=== PATIENT | male | born 1960 | race Caucasian/White ===

== ENCOUNTER 2021-03-10 07:07 | Outpatient (REF) | payer OTHER, SELFPAY ==
[2021-03-10 07:58] LABS: Alanine Aminotransferase 57 U/L (0-40); Alkaline Phosphatase 87 U/L (39-117); Anion Gap 12 (12-20); Aspartate Amino Transferase 41 U/L (5-37); Bilirubin Total 0.7 mg/dL (0.0-1.0); Blood Urea Nitrogen 13 mg/dL (9-16); Calcium 8.8 mg/dL (8.4-10.2); Carbon Dioxide 25 mmol/L (22-29); Chloride 106 mmol/L (96-108); Cholesterol 165 mg/dL; Estimated Glomerular Filt Rate 49; Glucose Fasting 129 mg/dL (60-99); HDL Cholesterol 39 mg/dL; LDL Cholesterol Calculated 106 mg/dl; Potassium 4.1 mmol/L (3.3-5.1); Sodium 139 mmol/L (135-145); Total Protein 6.9 g/dL (6.5-8.0); Triglycerides 102 mg/dL
[2021-03-15 13:32] LABS: Vitamin D 25-OH, D2 <4 ng/mL; Vitamin D 25-OH, D3 21 ng/mL; Vitamin D 25-OH, Total 21 ng/mL (30-100)
== END 2021-03-10 07:08 | disposition home or self-care (01) ==
LOC: HO.LAB 07:07
PROVIDERS: PCP Internal Medicine; Visit Provider Internal Medicine
DX: E55.9 Vitamin D deficiency, unspecified (principal); E78.5 Hyperlipidemia, unspecified; R73.02 Impaired glucose tolerance (oral)
CPT/HCPCS: 36415; 80053; 80061; 82306

== ENCOUNTER 2021-05-13 06:04 | Outpatient (REF) | payer OTHER, SELFPAY ==
[2021-05-13 07:57] LABS: Alanine Aminotransferase 55 U/L (0-40); Albumin Level 4.2 g/dL (3.5-5.0); Alkaline Phosphatase 93 U/L (39-117); Anion Gap 12 (12-20); Aspartate Amino Transferase 41 U/L (5-37); Bilirubin Total 1.1 mg/dL (0.0-1.0); Blood Urea Nitrogen 15 mg/dL (9-16); Calcium 9.1 mg/dL (8.4-10.2); Carbon Dioxide 24 mmol/L (22-29); Chloride 106 mmol/L (96-108); Estimated Glomerular Filt Rate 47; Glucose Fasting 107 mg/dL (60-99); Potassium 4.2 mmol/L (3.3-5.1); Sodium 138 mmol/L (135-145); Total Protein 7.2 g/dL (6.5-8.0)
[2021-05-18 13:02] LABS: Vitamin D 25-OH, D2 <4 ng/mL; Vitamin D 25-OH, D3 38 ng/mL; Vitamin D 25-OH, Total 38 ng/mL (30-100)
== END 2021-05-13 06:05 | disposition home or self-care (01) ==
LOC: HO.LAB 06:04
PROVIDERS: PCP Internal Medicine; Visit Provider Internal Medicine
DX: R73.02 Impaired glucose tolerance (oral) (principal); E55.9 Vitamin D deficiency, unspecified
CPT/HCPCS: 36415; 80053; 82306

== ENCOUNTER 2021-07-02 08:56 | Outpatient (REF) | payer OTHER, SELFPAY ==
[2021-07-02 10:04] LABS: MANUAL DIFF FLAG NO
[2021-07-02 10:20] LABS: Basophils Percent Auto 0.4 % (0-2); Eosinophils Absolute Auto 0.1 X10*3/uL (0.0-0.4); Hematocrit 41.1 % (42.0-52.0); Imm Gran Abs Auto 0.02 X10*3/uL (0.00-0.03); Imm Gran Pct Auto 0.2 % (0.0-0.4); Lymphocytes Absolute Auto 1.7 X10*3/uL (1.2-4.9); Lymphocytes Percent Auto 20.5 % (20-40); Mean Corpuscular HGB Conc 34.1 g/dl (31.0-36.0); Mean Corpuscular Hemoglobin 31.7 pg (27.0-33.0); Mean Platelet Volume 12.3 fL (9.4-12.4); Monocytes Absolute Auto 0.8 X10*3/uL (0.1-1.2); Monocytes Percent Auto 9.6 % (2-11); Neutrophils Absolute Auto 5.67 x10*3/uL (2.0-8.3); Neutrophils Percent Auto 68.3 % (45-73); Platelet Count 146 X10*3/uL (160-400); Red Blood Count 4.42 X10*6/uL (4.60-5.80); White Blood Count 8.3 X10*3/uL (4.8-10.8)
[2021-07-02 10:52] LABS: Bilirubin Direct 0.2 mg/dL (0.0-0.5); Bilirubin Total 0.5 mg/dL (0.0-1.0); Gamma Glutamyl Transpeptidase 30 U/L (11-51)
[2021-07-02 11:02] LABS: Ferritin 113 ng/mL (20-250); TSH reflex Free T4 1.64 uIU/mL (0.32-4.0)
[2021-07-02 11:16] LABS: Hepatitis B Surface Antigen Negative (Negative)
[2021-07-02 11:20] LABS: HBc Num1 0.05 S/CO (0.00-0.79); HIV AB/AG Nonreactive (Nonreactive); HIV Num 1 0.05 S/CO (0.00-0.99); Hepatitis B Core Antibody Nonreactive (Nonreactive); ~HepC Num1 0.06 S/CO (0.00-0.79); ~Hepatitis B Surface Antibody NONREACTIVE (Nonreactive); ~Hepatitis C Antibody Nonreactive (Nonreactive)
[2021-07-03 03:57] LABS: Hepatitis A Antibody IgM 0.25 Index (0-0.79); ~Hepatitis A Antibody IgM Nonreactive (Nonreactive)
[2021-07-03 14:27] LABS: Alpha Fetoprotein 4.2 ng/mL (<6.1)
[2021-07-04 12:51] LABS: Anti Nuclear Antibody Screen NEGATIVE (NEGATIVE)
[2021-07-07 14:37] LABS: Mitochondrial Antibodies NEGATIVE (NEGATIVE)
[2021-07-09 15:56] LABS: Smooth Muscle Antibody <20 U (<20)
== END 2021-07-02 08:57 | disposition home or self-care (01) ==
LOC: HO.LAB 08:56
PROVIDERS: PCP Internal Medicine; Referring Provider Internal Medicine; Visit Provider Nurse Practitioner
DX: R74.01 Elevation of levels of liver transaminase levels (principal); R17 Unspecified jaundice
CPT/HCPCS: 36415; 82105; 82247; 82248; 82728; 82977; 84443; 85025; 86038; 86039; 86255; 86256; 86704; 86706; 86709; 86803; 87340; 87389; 99202

== ENCOUNTER 2021-07-06 10:29 | Outpatient (REF) | payer OTHER, SELFPAY ==
--- NOTE | ~2021-07-06 | US_ITS ---
EXAMINATION: US ABDOMEN LIMITED WITH LIVER ELASTOGRAPHY CLINICAL INFORMATION: Elevated liver function tests COMPARISON: Renal ultrasound October 2019 TECHNIQUE: Real-time imaging of the abdominal viscera. Noninvasive ultrasound liver fibrosis assessment is performed using Rm ElastPQ point quantification shear wave elastography (pSWE) with a C5-2 MHz transducer. Multiple elastography samples are obtained. FINDINGS: PANCREAS: Not well visualized due to bowel gas LIVER: Liver is not well visualized, particularly the left lobe. Liver echotexture is slightly increased. The liver is normal in size and contour. No focal liver lesion or biliary duct dilatation. The right lobe measures 16 cm in length. The left lobe measures 8.5 cm in length. Portal flow is normal/hepatopedal Shear wave liver elastography median stiffness is 1.7 m/s (reference: normal median stiffness is 1.3 m/s or less). IQR/median stiffness to assess sampling precision is 0.13 (reference: good quality data set is IQR/median stiffness of 0.15 or less). GALLBLADDER: Normal. The gallbladder is physiologically distended without evidence of stones, sludge, polyps, wall thickening or pericholecystic fluid. COMMON BILE DUCT: Not well visualized. The visualized common bile duct is normal in caliber measuring 0.4 cm in diameter. RIGHT KIDNEY: Normal. No hydronephrosis. No renal calculi or focal parenchymal lesions. The kidney measures 10 cm in maximum dimension. FREE FLUID: None. US/US abdomen john w elastography IMPRESSION: 1. Impression: Limited exam. In particular, visualization of the pancreas, left lobe of the liver and common bile duct are limited. Echogenic liver probably representing fatty infiltration. 2. Liver elastography: Adequate liver sampling. Slightly increased liver stiffness suggestive of compensated advanced chronic liver disease but need further test for confirmation. REFERENCE: Society of Radiologists in Ultrasound Liver Stiffness Thresholds (2020): LIVER STIFFNESS THRESHOLDS: *Liver Stiffness equal or less than 1.3 m/s: High probability of being normal. *Liver Stiffness less than 1.7 m/s: In the absence of other known clinical signs, rules out compensated advanced chronic liver disease. *Liver Stiffness 1.7-2.1 m/s: Suggestive of compensated advanced chronic liver disease but need further test for confirmation. *Liver Stiffness over 2.1 m/s: Rules in compensated advanced chronic liver disease. *Liver Stiffness over 2.4 m/s: Suggestive of clinically significant portal hypertension. QUALITY OF DATA SET: *IQR/Median value equal or less than 0.15 implies a quality data set. *IQR/Median value over 0.15 implies a poor quality data set. SIGNIFICANT CHANGE FROM PRIOR EXAM: Significant change if liver stiffness measurement is 10% or greater from prior exam. OTHER CONSIDERATIONS: The stage of liver fibrosis may be overestimated in the setting of acute hepatitis, liver inflammation, elevated liver function tests, hepatic vascular congestion, obstructive cholestasis, non-fasting state, and infiltrative diseases such as amyloidosis and lymphoma. In some patients with NAFLD, the liver stiffness thresholds for compensated advanced chronic liver disease may be lower. In causes other than viral hepatitis and NAFLD, liver stiffness thresholds are not well established.
== END 2021-07-06 10:30 | disposition home or self-care (01) ==
LOC: HO.US 10:29
PROVIDERS: PCP Internal Medicine; Visit Provider Internal Medicine
DX: R74.01 Elevation of levels of liver transaminase levels (principal)
CPT/HCPCS: 76705; 76981

== ENCOUNTER → 2021-07-29 07:46 | Outpatient (BNVA) | payer OTHER, SELFPAY | PROVIDERS: PCP Internal Medicine; Visit Provider Nurse Practitioner Family | DX: M19.041 Primary osteoarthritis, right hand (principal); M19.042 Primary osteoarthritis, left hand | CPT/HCPCS: 99212 ==

== ENCOUNTER → 2021-11-06 07:36 | Outpatient (BNVA) | payer OTHER, SELFPAY | PROVIDERS: PCP Internal Medicine; Referring Provider Internal Medicine; Visit Provider Nurse Practitioner | DX: K74.60 Unspecified cirrhosis of liver (principal); R74.01 Elevation of levels of liver transaminase levels | CPT/HCPCS: 99212 ==

== ENCOUNTER → 2021-11-09 14:49 | Outpatient (REF) | payer OTHER, SELFPAY | LOC: HO.SL 14:49 | PROVIDERS: PCP Internal Medicine; Visit Provider Internal Medicine | DX: G47.33 Obstructive sleep apnea (adult) (pediatric) (principal); Z99.89 Dependence on other enabling machines and devices | CPT/HCPCS: 95806 ==

== ENCOUNTER 2021-11-25 08:40 | Outpatient (REF) | payer OTHER, SELFPAY ==
[2021-11-25 10:05] LABS: Alanine Aminotransferase 42 U/L (0-40); Albumin Level 4.1 g/dL (3.5-5.0); Alkaline Phosphatase 85 U/L (39-117); Anion Gap 12 (12-20); Aspartate Amino Transferase 28 U/L (5-37); Bilirubin Total 1.4 mg/dL (0.0-1.0); Blood Urea Nitrogen 13 mg/dL (9-16); Calcium 9.2 mg/dL (8.4-10.2); Carbon Dioxide 26 mmol/L (22-29); Chloride 104 mmol/L (96-108); Cholesterol 177 mg/dL; Estimated Glomerular Filt Rate 48; Glucose Fasting 101 mg/dL (60-99); HDL Cholesterol 39 mg/dL; LDL Cholesterol Calculated 119 mg/dl; Potassium 4.5 mmol/L (3.3-5.1); Sodium 137 mmol/L (135-145); Total Protein 7.2 g/dL (6.5-8.0); Triglycerides 96 mg/dL
[2021-11-25 10:43] LABS: Creatinine, 24Hr Urine 1.2 G/Day (1.0-2.0); Total Volume 24 Hour Urine 3025 mL
[2021-11-25 14:17] LABS: Creatinine (CrCl) 1.49 mg/dL (0.5-1.4); Creatinine Clearance 54.9 mL/min (85-125)
[2021-11-29 13:27] LABS: Vitamin D 25-OH, D2 <4 ng/mL; Vitamin D 25-OH, D3 49 ng/mL; Vitamin D 25-OH, Total 49 ng/mL (30-100)
== END 2021-11-25 08:41 | disposition home or self-care (01) ==
LOC: HO.LAB 08:40
PROVIDERS: Internal Medicine Hypertension Specialist; PCP Internal Medicine; Visit Provider Internal Medicine
DX: N18.31 Chronic kidney disease, stage 3a (principal); E55.9 Vitamin D deficiency, unspecified; E66.9 Obesity, unspecified
CPT/HCPCS: 36415; 80053; 80061; 82306; 82575

== ENCOUNTER 2021-12-01 08:48 | Outpatient (REF) | payer OTHER, SELFPAY ==
--- NOTE | ~2021-12-01 | CT_ITS ---
EXAMINATION: CT ABDOMEN WITHOUT AND WITH CONTRAST CLINICAL INFORMATION: Cirrhosis COMPARISON: Previous abdominal ultrasound June 2021 TECHNIQUE: Contiguous axial thin section helical images of the abdomen were performed before and after the administration of oral contrast and 85 mL of Omnipaque 350 intravenous contrast. The data set was reformatted in the coronal and sagittal planes and reviewed on an independent workstation. This CT examination was performed using dose optimization techniques as appropriate, variously including the following: *Automated exposure control *Adjustment of mA and/or kV according to patient size (this includes techniques or standardized protocols for targeted exams where dose is matched to indication/reason for exam; i.e. extremities or head) *Use of iterative reconstruction technique DLP: 995 mGy-cm FINDINGS: LUNG BASES: The lung bases are clear. LIVER, GALLBLADDER, AND BILIARY TREE: The liver is normal in size shape and attenuation. There is a 5 mm area of early arterial phase enhancement in the high medial segment of the left lobe of the liver axial image 31 series 4. This is not appreciated on noncontrast or venous phase imaging and no other liver lesion is seen. The gallbladder is normal. There is no biliary duct dilatation. No ascites. PANCREAS: Normal SPLEEN: Normal ADRENAL GLANDS AND KIDNEYS: The adrenal glands are normal-appearing. There are small bilateral renal stones, largest measuring 4 mm. There is an 8 mm low-attenuation lesion in the lower pole of the left kidney. Hounsfield units following contrast measure 30 not compatible with a simple cyst. This is not definitely appreciated on precontrast images. BOWEL LOOPS: Mild diverticulosis of the colon. LYMPH NODES: Normal. The hepatic veins and portal veins are patent. The main portal vein is normal in size measuring 1.2 to 1.3 cm. VASCULAR: Unremarkable. BONES: There are degenerative changes of the lower thoracic spine. CT/CT abdomen wo/w con IMPRESSION: 5 mm area of early arterial phase enhancement high in the medial segment of the left lobe of the liver. Short-term follow-up CT or MRI in 6 months recommended. 8 mm lesion in the lower pole of the left kidney not compatible with a simple cyst. This could be reassessed at the time of follow-up liver imaging. Bilateral renal stones. Mild diverticulosis. Fleischner guidelines were followed.
[2021-12-01] MEDS: iohexoL 350 MG/ML 100 ML INFUS..BTL IV (09:27)
== END 2021-12-01 08:49 | disposition home or self-care (01) ==
LOC: HO.CT 08:48
PROVIDERS: PCP Internal Medicine; Visit Provider Nurse Practitioner
DX: K74.60 Unspecified cirrhosis of liver (principal)
CPT/HCPCS: 74170; Q9967

== ENCOUNTER → 2021-12-22 12:50 | Outpatient (BNVA) | payer OTHER, SELFPAY | PROVIDERS: PCP Internal Medicine; Visit Provider Nurse Practitioner Family | DX: G47.33 Obstructive sleep apnea (adult) (pediatric) (principal); Z99.89 Dependence on other enabling machines and devices | CPT/HCPCS: 99202 ==

== ENCOUNTER 2022-02-02 07:54 | Outpatient (REF) | payer OTHER, SELFPAY ==
[2022-02-04 14:17] LABS: Anti Nuclear Antibody Screen NEGATIVE (NEGATIVE)
[2022-02-04 22:42] LABS: Prot Elec - Albumin 4.3 g/dL (3.8-4.8); Prot Elec - Alpha1 0.3 g/dL (0.2-0.3); Prot Elec - Alpha2 0.6 g/dL (0.5-0.9); Prot Elec - Beta 1 0.5 g/dL (0.4-0.6); Prot Elec - Beta 2 0.4 g/dL (0.2-0.5); Prot Elec - Gamma 1.4 g/dL (0.8-1.7); Prot Elec - Total Protein 7.4 g/dL (6.1-8.1)
[2022-02-05 15:22] LABS: Neutrophil Cyto Ab Screen NEGATIVE (NEGATIVE)
== END 2022-02-02 07:55 | disposition home or self-care (01) ==
LOC: HO.LAB 07:54
PROVIDERS: PCP Internal Medicine; Visit Provider Internal Medicine Hypertension Specialist
DX: N18.31 Chronic kidney disease, stage 3a (principal)
CPT/HCPCS: 36415; 84165; 86036; 86037; 86038; 86039

== ENCOUNTER 2022-02-08 16:55 | Outpatient (REF) | payer OTHER, SELFPAY ==
[2022-02-08 18:11] LABS: Anion Gap 11 (12-20); Blood Urea Nitrogen 15 mg/dL (9-16); Calcium 9.5 mg/dL (8.4-10.2); Carbon Dioxide 27 mmol/L (22-29); Chloride 104 mmol/L (96-108); Estimated Glomerular Filt Rate 48; Glucose Random 133 mg/dL (60-115); Potassium 4.2 mmol/L (3.3-5.1); Sodium 138 mmol/L (135-145)
== END 2022-02-08 16:56 | disposition home or self-care (01) ==
LOC: HO.LAB 16:55
PROVIDERS: PCP Internal Medicine; Visit Provider Internal Medicine Hypertension Specialist
DX: N18.31 Chronic kidney disease, stage 3a (principal)
CPT/HCPCS: 36415; 80048

== ENCOUNTER 2022-03-11 07:32 | Outpatient (REF) | payer OTHER, SELFPAY ==
[2022-03-17 13:55] LABS: Alpha Fetoprotein 4.3 ng/mL (<6.1)
== END 2022-03-11 07:33 | disposition home or self-care (01) ==
LOC: HO.LAB 07:32
PROVIDERS: Nurse Practitioner; PCP Internal Medicine; Visit Provider Internal Medicine
DX: K74.60 Unspecified cirrhosis of liver (principal)
CPT/HCPCS: 36415; 82105

== ENCOUNTER → 2022-03-12 19:58 | Outpatient (REF) | payer OTHER, SELFPAY | LOC: HO.SL 19:58 | PROVIDERS: PCP Internal Medicine; Visit Provider Nurse Practitioner Family | DX: G47.33 Obstructive sleep apnea (adult) (pediatric) (principal) | CPT/HCPCS: 95811 ==

== ENCOUNTER 2022-03-24 07:36 | Outpatient (REF) | payer OTHER, SELFPAY ==
[2022-03-24 09:26] LABS: Alanine Aminotransferase 44 U/L (0-40); Albumin Level 4.1 g/dL (3.5-5.0); Alkaline Phosphatase 86 U/L (39-117); Anion Gap 11 (12-20); Aspartate Amino Transferase 35 U/L (5-37); Bilirubin Total 0.8 mg/dL (0.0-1.0); Blood Urea Nitrogen 13 mg/dL (9-16); Calcium 8.3 mg/dL (8.4-10.2); Carbon Dioxide 28 mmol/L (22-29); Chloride 105 mmol/L (96-108); Estimated Glomerular Filt Rate 51; Glucose Fasting 105 mg/dL (60-99); Potassium 4.6 mmol/L (3.3-5.1); Sodium 139 mmol/L (135-145); Total Protein 7.1 g/dL (6.5-8.0)
[2022-03-24 09:50] LABS: Vitamin D 25-OH Total 49.3 ng/mL (>30)
== END 2022-03-24 07:37 | disposition home or self-care (01) ==
LOC: HO.LAB 07:36
PROVIDERS: PCP Internal Medicine; Visit Provider Internal Medicine
DX: R73.02 Impaired glucose tolerance (oral) (principal); E55.9 Vitamin D deficiency, unspecified
CPT/HCPCS: 36415; 80053; 82306

== ENCOUNTER 2022-09-07 07:27 | Outpatient (REF) | payer OTHER, SELFPAY ==
--- NOTE | ~2022-09-07 | MR_ITS ---
EXAMINATION: MRI ABDOMEN WITH AND WITHOUT CONTRAST CLINICAL INFORMATION: K76.9 - Liver disease, unspecified COMPARISON: 12/01/2021 TECHNIQUE: Multiple routine MRI sequences through the abdomen were obtained on a high-field 1.5Tesla MRI. Pre-and postcontrast images with 10 mL of Gadavist intravenous contrast were obtained. This included a dynamic contrast-enhanced technique. FINDINGS: Lung bases: The visualized lung bases are unremarkable. Liver: There is mild diffuse signal loss on the out of phase imaging suggesting mild diffuse fatty infiltration. In the anterolateral aspect of the liver near the junctions of segments 8 and 4 there is a tiny subcentimeter T2 bright likely flash filling hemangioma best appreciated on the arterial phase image and then difficult to separate from the adjacent enhancing parenchyma on the later phases. Still present on the delayed images with signal intensity similar to blood pool. No suspicious hepatic lesions are no biliary ductal dilatation. Gallbladder: Gallbladder is unremarkable. No suspicious gallstones or filling defects. No gallbladder wall thickening or pericholecystic inflammatory changes. Pancreas: Pancreas is homogeneous in signal. No pancreatic ductal dilatation or obstruction. No peripancreatic inflammatory changes or fluid. Spleen: Unremarkable Adrenals: Unremarkable Kidneys: Kidneys are normal in size, shape, and signal. 1 cm T2 bright nonenhancing cyst in the posterior midpole of the left kidney. No suspicious renal mass lesion seen. No hydronephrosis or perinephric edema. Other: No bulky adenopathy MR/MR abdomen wo/w con IMPRESSION: Mild diffuse fatty infiltration of the liver. There is a tiny subcentimeter T2 bright likely flash filling hemangioma in the anterolateral aspect of the liver near the junctions of segments 8 and 4. This corresponds to the subtle finding seen on the prior CT scan. No suspicious hepatic lesions.
[2022-09-07 08:39] LABS: Alanine Aminotransferase 33 U/L (0-40); Albumin Level 4.2 g/dL (3.5-5.0); Alkaline Phosphatase 95 U/L (39-117); Anion Gap 13 (12-20); Aspartate Amino Transferase 33 U/L (5-37); Blood Urea Nitrogen 14 mg/dL (9-16); Calcium 9.7 mg/dL (8.4-10.2); Carbon Dioxide 25 mmol/L (22-29); Chloride 107 mmol/L (96-108); Estimated Glomerular Filt Rate 57; Glucose Random 110 mg/dL (60-115); Potassium 4.9 mmol/L (3.3-5.1); Sodium 140 mmol/L (135-145); Total Protein 7.3 g/dL (6.5-8.0)
[2022-09-08 10:48] LABS: Calcium (PTHI) 9.5 mg/dL (8.6-10.3); PTHI 92 pg/mL (16-77)
[2022-09-10 08:53] LABS: Calcium, Ionized 5.1 mg/dL (4.8-5.6)
[2022-09-10 21:44] LABS: Calcium, Random Urine 3.8 mg/dL
== END 2022-09-07 07:28 | disposition home or self-care (01) ==
LOC: HO.MRI 07:27
PROVIDERS: PCP Internal Medicine; Visit Provider Internal Medicine
DX: E83.51 Hypocalcemia (principal); N28.9 Disorder of kidney and ureter, unspecified; K76.9 Liver disease, unspecified
CPT/HCPCS: 36415; 74183; 80053; 82310; 82330; 83970; A9585

== ENCOUNTER → 2022-09-09 08:14 | Outpatient (BNVA) | payer OTHER, SELFPAY | PROVIDERS: PCP Internal Medicine; Visit Provider Nurse Practitioner Family | DX: M19.041 Primary osteoarthritis, right hand (principal); M19.042 Primary osteoarthritis, left hand | CPT/HCPCS: 99212 ==

== ENCOUNTER 2022-10-13 07:59 | Outpatient (REF) | payer OTHER, SELFPAY ==
--- NOTE | ~2022-10-13 | US_ITS ---
EXAMINATION: US PELVIS LIMITED, ABDOMINAL WALL/FOLLOW UP CLINICAL INFORMATION: Left lower quadrant pain. COMPARISON: MRI abdomen 09/07/2022, CT abdomen 12/01/2021. TECHNIQUE: High-frequency linear ultrasound transducer was utilized to examine the area of clinical concern in the left lower quadrant. FINDINGS: No abnormality is seen in the left lower quadrant. No hernia, mass or fluid collection is seen. US/US pelvic limited IMPRESSION: No abnormality is seen in the left lower quadrant.
[2022-10-13 09:23] LABS: Alanine Aminotransferase 31 U/L (0-40); Albumin Level 4.1 g/dL (3.5-5.0); Alkaline Phosphatase 94 U/L (39-117); Anion Gap 15 (12-20); Aspartate Amino Transferase 32 U/L (5-37); Bilirubin Total 1.1 mg/dL (0.0-1.0); Blood Urea Nitrogen 10 mg/dL (9-16); Calcium 9.4 mg/dL (8.4-10.2); Carbon Dioxide 26 mmol/L (22-29); Chloride 106 mmol/L (96-108); Estimated Glomerular Filt Rate > 60; Glucose Random 110 mg/dL (60-115); Potassium 4.7 mmol/L (3.3-5.1); Sodium 142 mmol/L (135-145); Total Protein 6.9 g/dL (6.5-8.0)
[2022-10-13 09:37] LABS: Appearance Urine Clear; Color Urine Yellow; Glucose Urine UA Negative (Negative); Leukocyte Esterase Urine Negative (Negative); Nitrite Urine Negative (Negative); PH 5.5 (5.0-9.0); Urine Blood Negative (Negative); Urine Ketones Negative (Negative); Urine Protein Negative (Neg-Trace)
[2022-10-13 09:40] LABS: Bacteria Urine None Seen (None Seen); Hyaline Casts Urine 0-2 /LPF (0-2); RBC Urine 0-2 /HPF (0-2); Squamous Epithelial Cell Urine 0-2 /HPF (0-2); WBC Urine 0-5 /HPF (0-5)
[2022-10-13 09:41] LABS: Vitamin D 25-OH Total 42.8 ng/mL (>30)
[2022-10-13 10:08] LABS: Creatinine Urine 175.56 mg/dL; Total Protein Urine Random < 7 mg/dL (<12)
[2022-10-14 14:59] LABS: Calcium (PTHI) 9.3 mg/dL (8.6-10.3); PTHI 81 pg/mL (16-77)
[2022-10-17 14:53] LABS: Anti Nuclear Antibody Screen NEGATIVE (NEGATIVE)
[2022-10-19 11:49] LABS: Neutrophil Cyto Ab Screen NEGATIVE (NEGATIVE)
== END 2022-10-13 08:00 | disposition home or self-care (01) ==
LOC: HO.US 07:59
PROVIDERS: Absent Provider Internal Medicine Hypertension Specialist; PCP Internal Medicine; Visit Provider Internal Medicine
DX: N18.31 Chronic kidney disease, stage 3a (principal); R10.32 Left lower quadrant pain
CPT/HCPCS: 36415; 76857; 80053; 81001; 82306; 83970; 84156; 86036; 86037; 86038; 86039

== ENCOUNTER → 2022-11-23 14:49 | Outpatient (BNVA) | payer OTHER, SELFPAY | PROVIDERS: PCP Internal Medicine; Visit Provider Urology | DX: N20.0 Calculus of kidney (principal) | CPT/HCPCS: 99202 ==

== ENCOUNTER → 2022-12-08 15:23 | Outpatient (BNVA) | payer OTHER, SELFPAY | PROVIDERS: PCP Internal Medicine; Visit Provider Nurse Practitioner Family | DX: G47.33 Obstructive sleep apnea (adult) (pediatric) (principal); Z99.89 Dependence on other enabling machines and devices | CPT/HCPCS: 99212 ==

== ENCOUNTER 2022-12-28 11:25 | Outpatient (REF) | payer OTHER, SELFPAY ==
[2022-12-28 12:50] LABS: Alanine Aminotransferase 29 U/L (0-40); Albumin Level 4.1 g/dL (3.5-5.0); Alkaline Phosphatase 90 U/L (39-117); Anion Gap 13 (12-20); Aspartate Amino Transferase 30 U/L (5-37); Bilirubin Total 1.2 mg/dL (0.0-1.0); Blood Urea Nitrogen 15 mg/dL (9-16); Calcium 9.4 mg/dL (8.4-10.2); Carbon Dioxide 26 mmol/L (22-29); Chloride 104 mmol/L (96-108); Estimated Glomerular Filt Rate > 60; Glucose Random 87 mg/dL (60-115); Potassium 4.5 mmol/L (3.3-5.1); Sodium 138 mmol/L (135-145)
[2022-12-28 13:05] LABS: Vitamin D 25-OH Total 37.5 ng/mL (>30)
[2022-12-29 16:13] LABS: Calcium (PTHI) 9.4 mg/dL (8.6-10.3); PTHI 53 pg/mL (16-77)
== END 2022-12-28 11:26 | disposition home or self-care (01) ==
LOC: HO.LAB 11:25
PROVIDERS: PCP Internal Medicine; Visit Provider Urology
DX: E55.9 Vitamin D deficiency, unspecified (principal); N18.31 Chronic kidney disease, stage 3a
CPT/HCPCS: 36415; 80053; 82306; 83970

== ENCOUNTER → 2023-01-04 15:46 | Outpatient (BNVA) | payer OTHER, SELFPAY | PROVIDERS: PCP Internal Medicine; Visit Provider Urology | DX: N20.0 Calculus of kidney (principal); E21.3 Hyperparathyroidism, unspecified | CPT/HCPCS: 99212 ==

== ENCOUNTER 2023-03-30 07:34 | Outpatient (AMB) | payer OTHER, SELFPAY ==
--- NOTE | 2023-03-30 07:49 | MHC.PC.OV ---
Vital Signs 03/30/23 07:50 Height 5 ft 10 in Weight 233 lb BMI 33.4 BP 136/88 Blood Pressure Location Lt brachial Position Sitting Intake Visit Reasons: Physical Exam Intake Note: Patient here for a physical exam Dewer Required: No Accompanied by: Spouse Allergies No Known Allergies [No Known Allergies*] Allergy (Verified 03/30/23 08:13) Medication List - Last Reconciled 03/30/23 by Sahara Arnett MD No Known Home Meds Tobacco use date assessed: 12/28/22 Fall risk assessment: No Falls in past year Last assessed Fall Risk: 03/30/23 Dental Screening Dental Screen Date: 03/30/23 Did you have a dental visit in the last 12 months?: Yes Did you have a dental problem in the last 6 months where you did not have access to dental care?: No Was dental information given to patient?: Patient has dentist HPI HPI Comments History of Present Illness Details This is a 62-year-old male that comes accompanied by for his physical exam. Last colonoscopy was 2015 and was normal. Denies any acute complaint. No chest pain or shortness of breath. Had chronic kidney disease that improved and now has GFR over 60. [facility] Medical History (Updated 03/30/23 @ 09:00 by Sahara Arnett MD) Anxiety associated with depression CKD (chronic kidney disease) LOR (generalized anxiety disorder) Hyperparathyroidism Hypovitaminosis D Impaired glucose tolerance Knee osteoarthritis Mild major depression Obese ANA on CPAP Total bilirubin, elevated Transaminitis Surgical History Hx of colonoscopy Family History (Updated 03/30/23 @ 08:14 by Sahara Arnett MD) Father Cancer Stroke Cirrhosis Mother Diabetes Social History Housing: House Alcohol intake: never Patient Tobacco Use Status: Never used Tobacco e-Cigarette/Vaping Use: Never Used Second Hand Smoke Exposure: No service: No Current occupational status: disabled Cognitive needs: No Hearing needs: No Vision needs: Yes Questionnaire Thrive Questionnaire Date Thrive assessed: 09/22/22 LOR-7 AMB Questionnaire LOR-7 Date LOR - 7 assessed: 09/22/22 Source: Developed by Drs. Desean L. Masha Chang, Nato Moncada and colleagues, with an educational lalitha from [employer]. Review of Systems Const All systems reviewed & are unremarkable except as noted in HPI and below Eyes Reports no additional complaints, Denies change in vision and Denies other visual disturbances Card Denies chest pain at rest, Denies chest pain with activity, Denies edema, Denies irregular heart rhythm, Denies claudication, Denies dyspnea, Denies dyspnea on exertion, Denies orthopnea, Denies paroxysmal nocturnal dyspnea and Denies slow heart rate Resp Denies cough, Denies dyspnea and Denies dyspnea on exertion GI Denies abdominal pain, Denies change in bowel habits, Denies excessive flatus, Denies nausea and Denies vomiting Denies urinary hesitancy, Denies urinary incontinence and Denies urinary urgency Musc Denies abnormal gait, Denies atrophy, Denies deformity and Denies limited range of motion Skin/Breast Denies bleeding lesions, Denies changing lesions and Denies rash Neuro Denies abnormal gait and Denies lack of coordination Physical exam (Primary Care) Vital Signs: Last Vital Signs BP 136/88 03/30/23 07:50 BMI result Body Mass Index 33.4 Tobacco/Smoking Status: Tobacco use Status Tobacco use date assessed 12/28/22 03/30/23 07:54 Patient Tobacco Use Status Never used Tobacco 03/30/23 07:54 e-Cigarette/Vaping Use Never Used 03/30/23 07:54 Thrive Assessment: Date of Thrive Assessment Date Thrive assessed 09/22/22 03/30/23 07:54 Const Orientation/consciousness: patient oriented x3 [facility] Head: Yes normal to inspection, Yes normocephalic and Yes atraumatic Ears: external ears normal Eyes General: appearance normal, both eyes and all related structures Eyelids: Yes eyelids normal Conjunctivae: conjunctivae normal Neck Neck: Yes normal visual inspection and Yes supple Resp Effort & Inspection: normal respiratory effort Auscultation: clear to auscultation bilaterally Cardio Jugular venous distension: no JVD Rate: regular rate Rhythm: regular rhythm Heart sounds: S1 normal heart sound present and S2 normal heart sound present GI Inspection: Yes normal to inspection Palpation (GI): Soft to palpation and nontender Auscultation: normal bowel sounds Skin General skin exam: no rashes or lesions noted Neuro General: patient oriented x3 and no focal motor deficits Extrem General: Yes full ROM Psych Appearance: grossly normal Assessment and Plan Assessment & Plan (1) Physical exam: Code(s): Z00.00 - Encounter for general adult medical examination without abnormal findings Plan: Repeat in a year Orders: Orders Comprehensive [place]. Panel Fast Today Z00.00 - Encounter for general adult medical examination without abnormal findings Lipid Panel Today Z00.00 - Encounter for general adult medical examination without abnormal findings Coding Level of Care Code Est Pt Prev Care 40-64y(02766) Diagnoses Physical exam Z00.00 Time Spent (min) 30
[2023-03-30 07:50] VITALS: BP 136/88; BMI 33.4
== END 2023-03-30 08:24 | disposition home or self-care (01) ==
PROVIDERS: Visit Provider Internal Medicine
DX: Z00.00 Encounter for general adult medical examination without abnormal findings (principal)
CPT/HCPCS: 99396

== ENCOUNTER 2023-05-11 08:04 | Outpatient (REF) | payer OTHER, SELFPAY ==
[2023-05-11 08:39] LABS: Calcium 9.3 mg/dL (8.4-10.2)
[2023-05-11 08:51] LABS: Alanine Aminotransferase 35 U/L (0-40); Alkaline Phosphatase 93 U/L (39-117); Anion Gap 11 (12-20); Aspartate Amino Transferase 34 U/L (5-37); Blood Urea Nitrogen 10 mg/dL (9-16); Calcium 9.4 mg/dL (8.4-10.2); Carbon Dioxide 27 mmol/L (22-29); Chloride 108 mmol/L (96-108); Cholesterol 175 mg/dL (<200); Estimated Glomerular Filt Rate > 60; Glucose Fasting 111 mg/dL (60-99); HDL Cholesterol 38 mg/dL (>40); LDL Cholesterol Calculated 112 mg/dL (<100); Phosphorus 2.7 mg/dL (2.7-4.5); Potassium 4.5 mmol/L (3.3-5.1); Sodium 141 mmol/L (135-145); Total Protein 7.2 g/dL (6.5-8.0); Triglycerides 129 mg/dL (<150); Uric Acid 8.3 mg/dL (3.4-7.0)
[2023-05-11 09:05] LABS: Vitamin D 25-OH Total 33.3 ng/mL (>30)
[2023-05-11 10:06] LABS: Creatinine Urine 138.19 mg/dL; Total Protein Urine Random < 7 mg/dL (<12)
[2023-05-13 23:58] LABS: PTHI 68 pg/mL (16-77)
== END 2023-05-11 08:05 | disposition home or self-care (01) ==
LOC: HO.LAB 08:04
PROVIDERS: Urology; PCP Internal Medicine; Visit Provider Internal Medicine Hypertension Specialist
DX: Z00.00 Encounter for general adult medical examination without abnormal findings (principal); N20.0 Calculus of kidney; N17.9 Acute kidney failure, unspecified
CPT/HCPCS: 36415; 80053; 80061; 82306; 82310; 82570; 83735; 83970; 84100; 84156; 84550

== ENCOUNTER 2023-09-08 07:54 | Outpatient (AMB) | payer OTHER, SELFPAY ==
[2023-09-08 08:08] VITALS: BP 130/78; BMI 33.1
--- NOTE | 2023-09-08 08:08 | MHC.PC.OV ---
Vital Signs 09/08/23 08:08 Height 5 ft 10 in Weight 231 lb BMI 33.1 BP 130/78 Blood Pressure Location Lt brachial Position Sitting Intake Visit Reasons: ckd Intake Note: Patient here for a follow up CKD Sales Operations Consultant Required: No Accompanied by: Spouse Allergies No Known Allergies [No Known Allergies*] Allergy (Verified 09/08/23 08:33) Medication List - Last Reconciled 09/08/23 by Sahara Arnett MD celecoxib mg PO Tobacco use date assessed: 09/08/23 Fall risk assessment: No Falls in past year Last assessed Fall Risk: 09/08/23 Dental Screening Dental Screen Date: 09/08/23 Did you have a dental visit in the last 12 months?: Yes Did you have a dental problem in the last 6 months where you did not have access to dental care?: No Was dental information given to patient?: Patient has dentist HPI HPI Comments History of Present Illness Details This is a 62-year-old male with knee osteoarthritis, impaired glucose tolerance, obstructive sleep apnea on CPAP and obesity that comes today accompanied by for follow-up on his conditions. Knee osteoarthritis is relieved by Celebrex as needed and he follows with orthopedic surgeon Dr. Jaime at [place] for this matter. MRI of the knee still pending. Walks with a cane for gait stability. Has elevated fasting blood glucose but denies any polyuria, polydipsia or unintentional weight loss. Blood glucose will be repeated in 8 months for his physical exam. Compliant with his CPAP machine for his obstructive sleep apnea and feels more rested while using it. He is obese with a BMI of 33.1 and was advised to diet and exercise as tolerated to reach BMI goal less than 30. No chest pain or shortness of breath. Had a history of chronic kidney disease which resolved. [facility] Medical History (Updated 09/08/23 @ 09:18 by Sahara Arnett MD) Hyperparathyroidism Total bilirubin, elevated LOR (generalized anxiety disorder) CKD (chronic kidney disease) Transaminitis Obese Anxiety associated with depression Mild major depression Impaired glucose tolerance ANA on CPAP Knee osteoarthritis Hypovitaminosis D Surgical History Hx of colonoscopy Family History Father Cancer Stroke Cirrhosis Mother Diabetes Social History Housing: House Alcohol intake: never Patient Tobacco Use Status: Never used Tobacco e-Cigarette/Vaping Use: Never Used Second Hand Smoke Exposure: No service: No Current occupational status: disabled Cognitive needs: Yes Hearing needs: No Vision needs: Yes Questionnaire PHQ-9 Over the last 2 weeks, how often have you been bothered by any of the following problems? 1. Little interest or pleasure in doing things: not at all 2. Feeling down, depressed, or hopeless: not at all 3. Trouble falling or staying asleep, or sleeping too much: not at all 4. Feeling tired or having little energy: not at all 5. Poor appetite or overeating: not at all 6. Feeling bad about yourself - or that you are a failure or have let yourself or your family down: not at all 7. Trouble concentrating on things, such as reading the newspaper or watching television: not at all 8. Moving or speaking so slowly that other people could have noticed. Or the opposite - being so fidgety or restless that you have been moving around a lot more than usual: not at all 9. Thoughts that you would be better off or of hurting yourself in some way: not at all Total score: 0 Depression Screening Interpretation: Negative Depression Screening Done: Yes 38595 - PHQ-9 Billing: Yes Source: Developed by Drs. Desean Chang, Masha Drew, Nato Moncada and colleagues, with an educational lalitha from [employer]. Thrive Questionnaire Date Thrive assessed: 09/08/23 I am a: Patient What is your living situation today?: I have a steady place to live Within the past 12 months, did the food you bought not last and you didn't have the money to get more?: Never true Within the past 12 months, did you worry whether your food would run out before you got money to buy more?: Never true Do you have trouble paying for medicines?: No Do you have trouble getting transportation to medical appointments?: No Do you have trouble paying your heating and electricity bill?: No Do you have trouble taking care of your child, family member or friend?: No Do you have trouble with day-to-day activities such as bathing, preparing meals, shopping, managing finances, etc.?: No Are you currently unemployed and looking for a job?: No Are you interested in more education?: No Please select the resources that you would like help with: None Currently or been in a relationship where the following occur: no concerns reported AUDIT C Alcohol Use Questionnaire (AUDIT-C) 1. How often do you have a drink containing alcohol?: Never Total Score: 0 LOR-7 AMB Questionnaire LOR-7 Date LOR - 7 assessed: 09/08/23 Feeling nervous, anxious, or on edge: 0 = Not at all Not being able to stop or control worryin = Not at all Worrying too much about different things: 0 = Not at all Trouble relaxin = Not at all Being so restless that it is hard to sit still: 0 = Not at all Becoming easily annoyed or irritable: 0 = Not at all Feeling afraid as if something awful might happen: 0 = Not at all Total LOR-7 score (0-4 normal; 5-9 mild; 10-14 moderate; 15-21 severe): 0 Source: Developed by Drs. Desean Chang, Masha Drew, Nato Moncada and colleagues, with an educational lalitha from [employer]. LOR-7 Assessment Billing LOR-7 Assessment Tool: LOR-7 Assessment 08636 Review of Systems Const All systems reviewed & are unremarkable except as noted in HPI and below Eyes Reports no additional complaints, Denies change in vision and Denies other visual disturbances Card Denies chest pain at rest, Denies chest pain with activity, Denies edema, Denies irregular heart rhythm, Denies claudication, Denies dyspnea, Denies dyspnea on exertion, Denies orthopnea, Denies paroxysmal nocturnal dyspnea and Denies slow heart rate Resp Denies cough, Denies dyspnea and Denies dyspnea on exertion GI Denies abdominal pain, Denies change in bowel habits, Denies excessive flatus, Denies nausea and Denies vomiting Denies urinary hesitancy, Denies urinary incontinence and Denies urinary urgency Musc Denies abnormal gait, Denies atrophy, Denies deformity, Reports arthralgias and Denies limited range of motion Skin/Breast Denies bleeding lesions, Denies changing lesions and Denies rash Neuro Denies abnormal gait, Denies behavioral changes and Denies lack of coordination Psych Denies behavioral changes Physical exam (Primary Care) Vital Signs: Last Vital Signs BP 130/78 09/08/23 08:08 BMI result Body Mass Index 33.1 Tobacco/Smoking Status: Tobacco use Status Tobacco use date assessed 09/08/23 09/08/23 08:11 Patient Tobacco Use Status Never used Tobacco 09/08/23 08:11 e-Cigarette/Vaping Use Never Used 09/08/23 08:11 PHQ-9: PHQ-9 Score PHQ-9: Total score 0 09/08/23 08:36 Depression Screening Interpretation: Negative Thrive Assessment: Date of Thrive Assessment Date Thrive assessed 09/08/23 09/08/23 08:11 Currently or been in a relationship where the following occur: no concerns reported Const Limitations: ambulation with cane Eyes General: appearance normal, both eyes and all related structures Eyelids: Yes eyelids normal Conjunctivae: conjunctivae normal Neck Neck: Yes normal visual inspection and Yes supple Resp Effort & Inspection: normal respiratory effort Auscultation: clear to auscultation bilaterally Cardio Jugular venous distension: no JVD Rate: regular rate Rhythm: regular rhythm Heart sounds: S1 normal heart sound present and S2 normal heart sound present Extrem General: Yes full ROM Office Procedures Flu Questionnaire Does the patient have a severe egg allergy?: No Immunizations flu vacc [id number] 6mos up(PF) 60 mcg(15 mcgx4)/0.5 mL IM syringe Performing Provider: Sahara Arnett MD Performing Location: [facility] Documented (not given) by: KIRSTIN Givens on 09/08/23 08:11 Reason Not Given: Patient Refused Assessment and Plan Assessment & Plan (1) Impaired glucose tolerance: Code(s): R73.02 - Impaired glucose tolerance (oral) Plan: Start a low-carbohydrate diet. Fasting blood glucose will be repeated for his physical exam. (2) Knee osteoarthritis: Code(s): M17.10 - Unilateral primary osteoarthritis, unspecified knee Qualifiers: Osteoarthritis type: primary Laterality: right Qualified Code(s): M17.11 - Unilateral primary osteoarthritis, right knee Plan: Continue Celebrex as needed. Follow-up with Ortho. (3) ANA on CPAP: Code(s): G47.33 - Obstructive sleep apnea (adult) (pediatric); Z99.89 - Dependence on other enabling machines and devices Plan: Continue CPAP use. (4) Class 1 obesity with body mass index (BMI) of 33.0 to 33.9 in adult: Code(s): E66.9 - Obesity, unspecified; Z68.33 - Body mass index [BMI] 33.0-33.9, adult Qualifiers: Obesity type: due to excess calories Serious obesity comorbidity presence: without serious comorbidity Qualified Code(s): E66.09 - Other obesity due to excess calories; Z68.33 - Body mass index [BMI] 33.0-33.9, adult Plan: Start diet and exercise. BMI goal is less than 30. Orders: Orders Influenza [id number] Immunization Today Z23 - Encounter for immunization Lipid Panel 7 Months R73.02 - Impaired glucose tolerance (oral) Comprehensive [place]. Panel Fast 7 Months R73.02 - Impaired glucose tolerance (oral) Coding Level of Care Code Est Pt Level 4 (77211) Diagnoses Impaired glucose tolerance R73.02 Primary osteoarthritis of right knee M17.11 Osteoarthritis type: primary Laterality: right ANA on CPAP G47.33; Z99.89 Class 1 obesity due to excess calories without serious comorbidity with body mass index (BMI) of 33.0 to 33.9 in adult E66.09; Z68.33 Obesity type: due to excess calories Serious obesity comorbidity presence: without serious comorbidity Additional Codes LOR-7 Assessment Billing - LOR-7 Assessment Tool: LOR-7 Assessment 37697 ([id number]) Time Spent (min) 22
== END 2023-09-08 08:39 | disposition home or self-care (01) ==
PROVIDERS: PCP Internal Medicine; Visit Provider Internal Medicine
DX: R73.02 Impaired glucose tolerance (oral) (principal); M17.11 Unilateral primary osteoarthritis, right knee; E66.09 Other obesity due to excess calories; Z68.33 Body mass index [BMI] 33.0-33.9, adult; G47.33 Obstructive sleep apnea (adult) (pediatric); Z99.89 Dependence on other enabling machines and devices
CPT/HCPCS: 99214

== ENCOUNTER 2023-12-12 08:31 | Outpatient (AMB) | payer OTHER, SELFPAY ==
[2023-12-12 08:33] VITALS: BP 142/86; BMI 34.0
--- NOTE | 2023-12-12 08:33 | MHC.PC.OV ---
Vital Signs 12/12/23 08:33 12/12/23 08:41 Height 5 ft 10 in Weight 237 lb BMI 34.0 BP 142/86 H 138/80 Blood Pressure Location Lt brachial Lt brachial Position Sitting Sitting Intake Visit Reasons: Knee operation 12/14 Intake Note: Patient here for pre-op clearance 12/14 Oil Painter Required: No Accompanied by: Self / Same As Patient Allergies No Known Allergies [No Known Allergies*] Allergy (Verified 12/12/23 08:40) Medication List - Last Reconciled 12/12/23 by Sahara Arnett MD celecoxib mg PO Tobacco use date assessed: 09/08/23 Fall risk assessment: No Falls in past year Last assessed Fall Risk: 12/12/23 Dental Screening Dental Screen Date: 09/08/23 HPI HPI Comments History of Present Illness Details This is a 63-year-old male with knee osteoarthritis, obstructive sleep apnea on CPAP and low vitamin-D that comes today for preop evaluation of right knee arthroscopy scheduled for 12/15/2023. He walks with a cane for gait stability and has been complaining of knee pain secondary to knee osteoarthritis for few months. The pain decreased when knee is extended but not fully extended. Patient has limited right knee flexion also. Celebrex is not working for his pain. Compliant with CPAP machine and feels more rested. Last vitamin-D levels were within normal limits and this will eventually be monitor. Denies any chest pain or shortness of breath. Has 5-7 Mets of ADLs. EKG and labs are pending for medical clearance which will be done today. [facility], [facility] Medical History Hyperparathyroidism Total bilirubin, elevated LOR (generalized anxiety disorder) CKD (chronic kidney disease) Transaminitis Obese Anxiety associated with depression Mild major depression Impaired glucose tolerance ANA on CPAP Knee osteoarthritis Hypovitaminosis D Surgical History Hx of colonoscopy Family History Father Cancer Stroke Cirrhosis Mother Diabetes Social History Housing: House Alcohol intake: never Patient Tobacco Use Status: Never used Tobacco e-Cigarette/Vaping Use: Never Used Second Hand Smoke Exposure: No service: No Current occupational status: disabled Cognitive needs: Yes Hearing needs: No Vision needs: Yes Questionnaire Thrive Questionnaire Date Thrive assessed: 09/08/23 LOR-7 AMB Questionnaire LOR-7 Date LOR - 7 assessed: 09/08/23 Source: Developed by Drs. Desean Chang, Masha Drew, Nato Moncada and colleagues, with an educational lalitha from [employer]. Review of Systems Const All systems reviewed & are unremarkable except as noted in HPI and below Eyes Reports no additional complaints, Denies change in vision and Denies other visual disturbances Card Denies chest pain at rest, Denies chest pain with activity, Denies edema, Denies irregular heart rhythm, Denies claudication, Denies dyspnea, Denies dyspnea on exertion, Denies orthopnea, Denies paroxysmal nocturnal dyspnea and Denies slow heart rate Resp Denies cough, Denies dyspnea and Denies dyspnea on exertion Physical exam (Primary Care) Vital Signs: Last Vital Signs BP 142/86 H 12/12/23 08:33 BMI result Body Mass Index 34.0 Tobacco/Smoking Status: Tobacco use Status Tobacco use date assessed 09/08/23 12/12/23 08:36 Patient Tobacco Use Status Never used Tobacco 12/12/23 08:36 e-Cigarette/Vaping Use Never Used 12/12/23 08:36 Thrive Assessment: Date of Thrive Assessment Date Thrive assessed 09/08/23 12/12/23 08:36 Const General: cooperative Orientation/consciousness: patient oriented x3 Limitations: ambulation with cane Resp Effort & Inspection: normal respiratory effort Auscultation: clear to auscultation bilaterally Cardio Jugular venous distension: no JVD Rate: regular rate Rhythm: regular rhythm Heart sounds: S1 normal heart sound present and S2 normal heart sound present GI Inspection: Yes normal to inspection Palpation (GI): Soft to palpation and nontender Auscultation: normal bowel sounds Neuro General: patient oriented x3 and no focal motor deficits Extrem Right lower extremity: knee Details: tenderness and abnormal ROM Details: pain with active ROM during Details: in extension and in flexion Psych Appearance: grossly normal Assessment and Plan Assessment & Plan (1) Pre-op evaluation: Code(s): Z01.818 - Encounter for other preprocedural examination Plan: EKG and labs pending for medical clearance. (2) ANA on CPAP: Code(s): G47.33 - Obstructive sleep apnea (adult) (pediatric); Z99.89 - Dependence on other enabling machines and devices Plan: Continue CPAP machine. (3) Knee osteoarthritis: Code(s): M17.10 - Unilateral primary osteoarthritis, unspecified knee Qualifiers: Osteoarthritis type: primary Laterality: right Qualified Code(s): M17.11 - Unilateral primary osteoarthritis, right knee Plan: Continue the use of a cane for gait stability. Follow-up with [facility] Dr. Lyndon Villalpando from [facility]. (4) Hypovitaminosis D: Code(s): E55.9 - Vitamin D deficiency, unspecified Plan: Monitor vitamin-D levels. Orders: Orders Complete Blood Count Auto Diff Today M19.041 - Primary osteoarthritis, right hand, M19.042 - Primary osteoarthritis, left hand Comprehensive [place]. Panel Fast Today M19.041 - Primary osteoarthritis, right hand, M19.042 - Primary osteoarthritis, left hand Lipid Panel Today E78.5 - Hyperlipidemia, unspecified ECG 12 lead EKG Today Z01.818 - Encounter for other preprocedural examination Coding Level of Care Code Est Pt Level 4 (04768) Diagnoses Pre-op evaluation Z01.818 ANA on CPAP G47.33; Z99.89 Primary osteoarthritis of right knee M17.11 Osteoarthritis type: primary Laterality: right Hypovitaminosis D E55.9 Time Spent (min) 23
[2023-12-12 08:41] VITALS: BP 138/80
== END 2023-12-12 08:45 | disposition home or self-care (01) ==
PROVIDERS: PCP Internal Medicine; Visit Provider Internal Medicine
DX: Z01.818 Encounter for other preprocedural examination (principal); G47.33 Obstructive sleep apnea (adult) (pediatric); Z99.89 Dependence on other enabling machines and devices; M17.11 Unilateral primary osteoarthritis, right knee; E55.9 Vitamin D deficiency, unspecified
CPT/HCPCS: 99214

== ENCOUNTER 2023-12-13 07:59 | Outpatient (REF) | payer OTHER, SELFPAY ==
[2023-12-13 08:22] LABS: MANUAL DIFF FLAG NO
--- NOTE | 2023-12-13 08:25 | ECG_ITS ---
Test Reason : preop Blood Pressure : / mmHG Vent. Rate : 072 BPM Atrial Rate : 072 BPM P-R Int : 180 ms QRS Dur : 100 ms QT Int : 392 ms P-R-T Axes : 046 076 031 degrees QTc Int : 429 ms Normal sinus rhythm Normal ECG No previous ECGs available Referred By: Sahara Arnett Electronically Signed By:STORMY GILLESPIE
[2023-12-13 09:08] LABS: Basophils Percent Auto 0.5 % (0-2); Eosinophils Absolute Auto 0.3 X10*3/uL (0.0-0.4); Eosinophils Percent Auto 3.5 % (0-4); Hematocrit 41.7 % (42.0-52.0); Imm Gran Abs Auto 0.02 X10*3/uL (0.00-0.03); Imm Gran Pct Auto 0.3 % (0.0-0.4); Lymphocytes Absolute Auto 1.8 X10*3/uL (1.2-4.9); Lymphocytes Percent Auto 23.2 % (20-40); Mean Corpuscular HGB Conc 33.6 g/dl (31.0-36.0); Mean Corpuscular Hemoglobin 31.6 pg (27.0-33.0); Mean Corpuscular Volume 94.1 fL (80.0-98.0); Mean Platelet Volume 12.5 fL (9.4-12.4); Monocytes Absolute Auto 0.8 X10*3/uL (0.1-1.2); Monocytes Percent Auto 10.9 % (2-11); Neutrophils Absolute Auto 4.8 x10*3/uL (2.0-8.3); Neutrophils Percent Auto 61.6 % (45-73); Platelet Count 130 X10*3/uL (160-400); Red Blood Count 4.43 X10*6/uL (4.60-5.80); White Blood Count 7.7 X10*3/uL (4.8-10.8)
[2023-12-13 10:05] LABS: Alanine Aminotransferase 39 U/L (0-40); Albumin Level 4.2 g/dL (3.5-5.0); Alkaline Phosphatase 99 U/L (39-117); Anion Gap 12 (12-20); Aspartate Amino Transferase 29 U/L (5-37); Bilirubin Total 0.9 mg/dL (0.0-1.0); Blood Urea Nitrogen 14 mg/dL (9-16); Calcium 9.5 mg/dL (8.4-10.2); Carbon Dioxide 26 mmol/L (22-29); Chloride 106 mmol/L (96-108); Cholesterol 171 mg/dL (<200); Estimated Glomerular Filt Rate > 60; Glucose Fasting 126 mg/dL (60-99); HDL Cholesterol 41 mg/dL (>40); LDL Cholesterol Calculated 111 mg/dL (<100); Potassium 4.6 mmol/L (3.3-5.1); Sodium 139 mmol/L (135-145); Total Protein 7.3 g/dL (6.5-8.0); Triglycerides 96 mg/dL (<150)
== END 2023-12-13 08:00 | disposition home or self-care (01) ==
LOC: HO.LAB 07:59
PROVIDERS: PCP Internal Medicine; Visit Provider Internal Medicine
DX: Z01.818 Encounter for other preprocedural examination (principal); E78.5 Hyperlipidemia, unspecified; M19.041 Primary osteoarthritis, right hand; M19.042 Primary osteoarthritis, left hand
CPT/HCPCS: 36415; 80053; 80061; 85025; 93005

== ENCOUNTER → 2023-12-13 08:25 | Outpatient (BNV) | payer OTHER, SELFPAY | PROVIDERS: PCP Internal Medicine; Visit Provider Internal Medicine | DX: Z01.818 Encounter for other preprocedural examination (principal) | CPT/HCPCS: 93010 ==

== ENCOUNTER 2024-01-09 09:09 | Outpatient (REF) | payer MEDICARE, MEDICAID, SELFPAY ==
[2024-01-09 10:28] LABS: Appearance Urine Turbid; Color Urine Yellow; Glucose Urine UA Negative (Negative); Leukocyte Esterase Urine Large (3+) (Negative); Nitrite Urine Negative (Negative); Specific Gravity - Urine 1.015 (1.005-1.025); UMIC TRIGGER UACC YES; Urine Blood Large (3+) (Negative); Urine Ketones Negative (Negative); Urine Protein 30 (1+) mg/dL (Neg-Trace)
[2024-01-09 10:44] LABS: Bacteria Urine Trace (None Seen); Hyaline Casts Urine 0-2 /LPF (0-2); Renal Epithelial Cells Urine Present; Transitional Epi Cells Urine Present; UACC Culture Trigger YES; WBC Urine >50 /HPF (0-5)
== END 2024-01-09 09:10 | disposition home or self-care (01) ==
LOC: HO.LAB 09:09
PROVIDERS: PCP Internal Medicine; Visit Provider Internal Medicine
DX: Z13.89 Encounter for screening for other disorder (principal)
CPT/HCPCS: 81001; 87086; 87088; 87186

== ENCOUNTER 2024-01-09 15:50 | Outpatient (AMB) | payer MEDICARE, MEDICAID, SELFPAY ==
--- NOTE | 2024-01-09 16:14 | A.OFFPC_ITS ---
Vital Signs 01/09/24 16:15 Height 5 ft 10 in Weight 239 lb BMI 34.3 BP 112/64 Blood Pressure Location Lt brachial Position Sitting Intake Visit Reasons: ? UTI Intake Note: Patient here for headaches, joint pain, UTI symptoms started today at 4am Educational Recruiter Required: No Accompanied by: Grand Child Allergies No Known Allergies [No Known Allergies*] Allergy (Verified 01/09/24 16:35) Medication List - Last Reconciled 01/09/24 by Sahara Arnett MD celecoxib mg PO Tobacco use date assessed: 09/08/23 Fall risk assessment: No Falls in past year Last assessed Fall Risk: 01/09/24 Dental Screening Dental Screen Date: 09/08/23 HPI HPI Comments History of Present Illness Details This is a 63-year-old male that comes accompanied by granddaughter complaining of fatigue, chills and fever that started yesterday. No cough. No nasal congestion. No sick contacts. Has microscopic hematuria and urine well be sent for culture. He will start Levaquin and labs will be ordered. I did order COVID, flu and RSV test. He does not look septic. [facility] Medical History Hyperparathyroidism Total bilirubin, elevated LOR (generalized anxiety disorder) CKD (chronic kidney disease) Transaminitis Obese Anxiety associated with depression Mild major depression Impaired glucose tolerance ANA on CPAP Knee osteoarthritis Hypovitaminosis D Surgical History Hx of colonoscopy Family History Father Cancer Stroke Cirrhosis Mother Diabetes Social History Housing: House Alcohol intake: never Patient Tobacco Use Status: Never used Tobacco e-Cigarette/Vaping Use: Never Used Second Hand Smoke Exposure: No service: No Current occupational status: disabled Cognitive needs: Yes Hearing needs: No Vision needs: Yes Questionnaire Thrive Questionnaire Date Thrive assessed: 09/08/23 LOR-7 AMB Questionnaire LOR-7 Date LOR - 7 assessed: 09/08/23 Source: Developed by Drs. Desean Chang, Masha Drew, Nato Moncada and colleagues, with an educational lalitha from [employer]. Review of Systems Const All systems reviewed & are unremarkable except as noted in HPI and below Reports chills, Reports fatigue, Reports fever(s) and Reports headache(s) Eyes Reports no additional complaints, Denies change in vision and Denies other visual disturbances ENT Reports headache(s) Card Denies chest pain at rest, Denies chest pain with activity, Denies edema, Denies irregular heart rhythm, Denies claudication, Denies dyspnea, Denies dyspnea on exertion, Denies orthopnea, Denies paroxysmal nocturnal dyspnea and Denies slow heart rate Resp Denies cough, Denies dyspnea and Denies dyspnea on exertion Neuro Reports headache(s) Endo Reports fatigue Physical exam (Primary Care) Vital Signs: Last Vital Signs BP 112/64 01/09/24 16:15 BMI result Body Mass Index 34.3 Tobacco/Smoking Status: Tobacco use Status Tobacco use date assessed 09/08/23 01/09/24 16:28 Patient Tobacco Use Status Never used Tobacco 01/09/24 16:28 e-Cigarette/Vaping Use Never Used 01/09/24 16:28 Thrive Assessment: Date of Thrive Assessment Date Thrive assessed 09/08/23 01/09/24 16:28 Resp Effort & Inspection: normal respiratory effort Auscultation: clear to auscultation bilaterally Cardio Jugular venous distension: no JVD Rate: regular rate Rhythm: regular rhythm Heart sounds: S1 normal heart sound present and S2 normal heart sound present Results AMB Urinalysis, Automated UA Leukoctes 3 Luis/uL Last Edit by KIRSTIN Givens on 01/09/24 16:31 UA Nitrite Positive Last Edit by KIRSTIN Givens on 01/09/24 16:31 UA Urobilinogen 0.2 mg/dL Last Edit by Susan Kennedy [facility] on 01/09/24 16: 31 UA Protein 1 mg/dL Last Edit by KIRSTIN Givens on 01/09/24 16:31 UA pH 6.0 Last Edit by KIRSTIN Givens on 01/09/24 16:31 UA Blood 2 Guido/uL Last Edit by KIRSTIN Givens on 01/09/24 16:31 UA Specific [place] 1.020 Last Edit by KIRSTIN Givens on 01/09/24 16 :31 UA Ketone Positive Last Edit by Susan Kennedy, RMA on 01/09/24 16:31 UA Bilirubin 0 mg/dL Last Edit by Susan Kennedy, RMA on 01/09/24 16:31 UA Glucose 0 mg/dL Last Edit by Susan Kennedy, RMA on 01/09/24 16:31 Results Reviewed Results Reviewed: Laboratory Last Values Urine pH (Auto) 6.0 01/09/24 16:28 Specific [place] (Auto) 1.020 01/09/24 16:28 Urine Protein (Auto) 1 mg/dL 01/09/24 16:28 Glucose (UA)(Auto) 0 mg/dL 01/09/24 16:28 Urine Ketones (Auto) Positive 01/09/24 16:28 Urine Blood (Auto) 2 Guido/uL 01/09/24 16:28 Urine Nitrite (Auto) Positive 01/09/24 16:28 Urine Bilirubin (Auto) 0 mg/dL 01/09/24 16:28 Urine Urobilinogen (Auto) 0.2 mg/dL 01/09/24 16:28 Leukocyte Esterase (Auto) 3 Luis/uL 01/09/24 16:28 Assessment and Plan Assessment & Plan (1) Hematuria: Code(s): R31.9 - Hematuria, unspecified Plan: Start Levaquin. Ultrasound renal bilateral ordered. Urine will be sent for culture. (2) Chills: Code(s): R68.83 - Chills (without fever) Plan: Labs ordered. COVID, flu and RSV test also ordered. Start Levaquin. Orders: Orders AMB Urinalysis Automated Today R30.0 - Dysuria SARS-CoV2/FLU/RSV Today R09.89 - Other specified symptoms and signs involving the circulatory and respiratory systems US renal BI Today R31.9 - Hematuria, unspecified Comprehensive [place]. Panel Fast Today R68.83 - Chills (without fever) Complete Blood Count Auto Diff Today R68.83 - Chills (without fever) Urine Culture Today R31.9 - Hematuria, unspecified Referrals Allergy & Immunology Referral L29.9 - Pruritus, unspecified Medications: New levofloxacin 500 mg PO DAILY 7 tabs 0RF 7 days Coding Level of Care Code Est Pt Level 3 (69822) Diagnoses Hematuria R31.9 Chills R68.83 Time Spent (min) 19
[2024-01-09 16:15] VITALS: BP 112/64; BMI 34.3
== END 2024-01-09 16:44 | disposition home or self-care (01) ==
PROVIDERS: PCP Internal Medicine; Visit Provider Internal Medicine
DX: R31.9 Hematuria, unspecified (principal); R68.83 Chills (without fever); R30.0 Dysuria
CPT/HCPCS: 81003; 99213

== ENCOUNTER 2024-01-10 02:49 | Inpatient (IN) | payer MEDICARE, OTHER, SELFPAY ==
[2024-01-10] VITALS (11 sets, daily range): BP systolic 105–170; BP diastolic 53–77; PULSE 86–104; RESP 13–24; TEMP 36.1–37.1; O2SAT 93–98; BMI 33.9
--- NOTE | ~2024-01-10 | CT_ITS ---
EXAMINATION: CT ABDOMEN AND PELVIS WITHOUT CONTRAST CLINICAL INFORMATION: Suprapubic pain. UTI. White blood cell count 30,000 COMPARISON: Portions of a previous CT 12/01/21 TECHNIQUE: Multidetector volumetric imaging was performed from the superior aspect of the liver through the pubic symphysis. Sagittal and coronal reformatted images were obtained on the technologist's workstation. This CT examination was performed using dose optimization techniques as appropriate, variously including the following: *Automated exposure control *Adjustment of mA and/or kV according to patient size (this includes techniques or standardized protocols for targeted exams where dose is matched to indication/reason for exam; i.e. extremities or head) *Use of iterative reconstruction technique DLP: 835 mGy-cm FINDINGS: LUNG BASES: There is a moderate hiatal hernia. LIVER, GALLBLADDER, AND BILIARY TREE: There is fatty change in the liver. The tiny lesion demonstrated and further evaluated with MRI in the right lobe of the liver is not appreciated on this nonenhanced study. No suspicious focal liver lesion. There is no gallstone or cholelithiasis. PANCREAS: No suspicious abnormality SPLEEN: The spleen measures 13.4 cm. This is between 1 and 2 standard deviations above the mean expected and appears similar to previous. ADRENAL GLANDS: No suspicious abnormality. KIDNEYS AND URETERS: There is mild fullness of the renal pelvis on each side. There is a calculus in the lower pole of the left kidney which in aggregate measures 0.8 cm. This is 12.3 cm from the skin. This was present 12/01/21. A nonobstructing upper pole calculus demonstrated in 2021 and the left kidney is not identified on this exam. There is a nonobstructing 0.3 cm calculus in the interpolar right kidney 14.2 cm from the skin. This is unchanged. No convincing ureteral calculus. There are calcifications in the pelvis which are likely vascular. BLADDER: The bladder is markedly distended. There is some mild stranding around the bladder. There is moderate stranding around the prostate and seminal vesicles. There is no definite bladder calculus. GASTROINTESTINAL TRACT: There are colonic diverticula. There is a moderate amount of residue throughout the colon. There is no localized pericolonic fat stranding. Stranding around the rectum is likely related to the prostate and seminal vesicles. No evidence of small bowel distention. As described above there is a hiatal hernia. ABDOMINAL WALL: Some fat protrudes into the inguinal canal. There is no bowel hernia. Tiny amount of fat extends into the umbilicus. LYMPH NODES: There are no enlarged retroperitoneal lymph nodes. There are some nonspecific inguinal lymph nodes. VASCULAR: There is no abdominal aortic aneurysm. PELVIC VISCERA: The prostate is enlarged. As described there is stranding around the prostate and seminal vesicles. OSSEOUS STRUCTURES: No suspicious focal lesion. CT/CT abdomen pelvis wo IV con IMPRESSION: There are bilateral nonobstructing renal calculi. The bladder is distended and there is some stranding around the bladder. There is stranding around the prostate and seminal vesicles. This can be seen with infection or inflammation. There is no abscess demonstrated. Fleischner guidelines were followed.
[2024-01-10 04:32] LABS: Anion Gap 18 (12-20); Blood Urea Nitrogen 23 mg/dL (9-16); Calcium 9.3 mg/dL (8.4-10.2); Carbon Dioxide 20 mmol/L (22-29); Chloride 101 mmol/L (96-108); Estimated Glomerular Filt Rate 43; Glucose Random 148 mg/dL (60-115); Potassium 4.1 mmol/L (3.3-5.1); Sodium 135 mmol/L (135-145)
[2024-01-10 04:36] LABS: Hematocrit 37.4 % (42.0-52.0); Hemoglobin 13.2 g/dl (14.0-18.0); Mean Corpuscular HGB Conc 35.3 g/dl (31.0-36.0); Mean Corpuscular Volume 90.8 fL (80.0-98.0); Mean Platelet Volume 12.3 fL (9.4-12.4); Platelet Count 105 X10*3/uL (160-400); Red Blood Count 4.12 X10*6/uL (4.60-5.80); Red Cell Distribution Width 12.2 % (11.0-16.0)
[2024-01-10 04:38] LABS: White Blood Count 31.5 X10*3/uL (4.8-10.8)
--- NOTE | 2024-01-10 04:38 | PC.NURSE ---
rec'd critical lab -wbc 31.5. notified Dr. Lucia
[2024-01-10 04:53] LABS: Band Neutrophils Percent 8 % (3-5); Large Platelet PRESENT; Lymphocytes Absolute Manual 1.6 X10*3/uL (1.2-4.9); Lymphocytes Percent Manual 5 % (20-40); Monocytes Absolute Manual 1.3 X10*3/uL (0.1-1.2); Monocytes Percent Manual 4 % (2-11); Neutrophils Absolute Manual 28.7 X10*3/uL (2.0-8.3); Neutrophils Percent Manual 83 % (45-73); Platelet Estimate SLIGHTLY DECREASED (NORMAL); Platelet Morphology Comment NOTED; RBC Morphology NORMAL
[2024-01-10 04:53] LABS: Alanine Aminotransferase 28 U/L (0-40); Albumin Level 3.8 g/dL (3.5-5.0); Alkaline Phosphatase 107 U/L (39-117); Aspartate Amino Transferase 23 U/L (5-37); Bilirubin Direct 0.7 mg/dL (0.0-0.5); Bilirubin Total 1.7 mg/dL (0.0-1.0); Lipase 8 U/L (8-78); Total Protein 7.2 g/dL (6.5-8.0)
--- NOTE | 2024-01-10 04:54 | ED_ITS ---
HPI - Male Genitourinary General Chief complaint: Urogenital-Male Stated complaint: uti, no urination x4 hours Time Seen by Provider: 01/10/24 04:43 Source: patient, old records reviewed and api architect Mode of arrival: ambulatory Limitations: no limitations History of Present Illness HPI Narrative: 63 yo male with PMH of anxiety, CKD, anxiety and depression, ANA on CPAP, just seen on 01/08 by PCP for chills and fatigue found to have UTI started on levofloxacin 500mg PO daily. He comes in tonight with c/o fevers, chills feeling like he cannot empty his bladder and having a hard time urinating. Last dose of levofloxacin 7pm. MD Complaint: dysuria and other (retention) Onset (ago): day(s) (2) Duration: constant Location: abdomen Severity: moderate Quality: dull Relieving factors: urination Exacerbating factors: none Associated symptoms: Reports fever Related Data Home Medications ?Medication ?Instructions ?Recorded ?Confirmed celecoxib 200 mg capsule mg PO 09/08/23 01/09/24 Previous Rx's ?Medication ?Instructions ?Recorded levofloxacin 500 mg tablet 500 mg PO DAILY 7 days #7 tabs 01/09/24 Allergies Allergy/AdvReac Type Severity Reaction Status Date / Time No Known Allergies Allergy Verified 01/10/24 03:00 [No Known Allergies*] Review of Systems 2 Review of Systems: Constitutional : No Weight loss, pos Fever, pos Chills ENT/Mouth : No sore throat, No Rhinorrhea Eyes: No Swelling, No Redness Cardiovascular : No Chest Pain, No SOB, NoEdema Respiratory : No Cough, No Sputum, No Wheezing Gastrointestinal : Positive Nausea, no Vomiting, no Diarrhea, positive abdominal Pain, No Hematochezia, No Melena Genitourinary : No Dysuria, No Urinary Frequency, No Hematuria, No Urgency Musculoskeletal : No joint pain, No Myalgias, No Joint Swelling Skin : No Skin Lesions, No rash Neuro : No Weakness, No Numbness, No Dizziness, No Headache Psych : No Anxiety/Panic, No Depression All other systems reviewed and are negative. [facility] Past Medical History Attestation statement: The following information was validated with the patient. Source: old records reviewed Medical History Hyperparathyroidism Total bilirubin, elevated LOR (generalized anxiety disorder) CKD (chronic kidney disease) Transaminitis Obese Anxiety associated with depression Mild major depression Impaired glucose tolerance ANA on CPAP Knee osteoarthritis Hypovitaminosis D Surgical History Hx of colonoscopy Family History Family History Father Cancer Stroke Cirrhosis Mother Diabetes Social History Social History Housing: House Alcohol intake: never Patient Tobacco Use Status: Never used Tobacco Smoked in Last 30 Days: No e-Cigarette/Vaping Use: Never Used Second Hand Smoke Exposure: No Use of substances other than those prescribed or required for medical reasons: No Advance Directives: No Advance Directives Information Provided: Yes Do you have a plan to hurt others: No Plan service: No Current occupational status: disabled Cognitive needs: Yes Hearing needs: No Vision needs: Yes Physical Exam 2 Vital Signs: Vital Signs: Last Vital Signs Temp 97.9 F 01/10/24 06:21 Pulse 100 01/10/24 06:21 Resp 22 H 01/10/24 06:21 BP 158/77 H 01/10/24 06:21 Pulse Ox 98 01/10/24 06:21 O2 Del Method Room Air 01/10/24 06:21 BMI result Body Mass Index 33.9 Appearance: Alert. Oriented X3. No acute distress. Eyes: Pupils equal, round and reactive to light. ENT: Pharynx normal. Neck: Normal inspection. Neck supple. CVS: Normal heart rate and rhythm. Pulses normal. Respiratory: No respiratory distress. Breath sounds normal. Abdomen: Soft and nontender. Skin: Skin warm and dry. Normal skin color. Normal skin turgor. Extremities: No lower extremity edema. No calf ttp Neuro: Oriented X 3. No motor deficit. No sensory deficit. Course Course Course Narrative: signed out to Dr. Diaz pending CT scan and admission Medications Administered Discontinued Medications Generic Name Dose Route Start Last Admin Trade Name Freq PRN Reason Stop Dose Admin Sodium Chloride 1,000 mls @ 999 mls/hr 01/10/24 04:38 01/10/24 05:16 Ns IV 01/10/24 05:38 999 mls/hr .Q1H1M ONE Administration Ceftriaxone Sodium 2 gm/ 50 mls @ 100 mls/hr 01/10/24 04:38 01/10/24 05:43 Sodium Chloride IV 01/10/24 05:07 Infused ONCE ONE Infusion Medical Decision Making Medical Decision Making [facility] Narrative: 63 yo male with PMH of anxiety, CKD, anxiety and depression, ANA on CPAP just diagnosed with UTI here with feelings of urinary retention PVR 341 he has mild signs of TACHO and elevated wbc count already took his levofloxacin at 7pm will add on ceftriaxone, IVF, CT scan for mass/prostatitis. will hold off shepherd unless he has sig retention given concern for prostatitis at this time. Differential Diagnosis Differential Diagnoses: The differential diagnosis associated with the presentation includes mass, UTI, prostatitis. Admission/Observation Consideration of admission/observation: Escalation of care including admission/observation considered given lab derangements will need admission and IV antibiotics Consult Healthcare Provider Management of the patient was discussed with: Hospitalist (will admit) Lab Data [facility] Lab Attestation statement: I reviewed the patient's lab results. 01/10/24 04:31 01/10/24 04:15 Labs: Lab Results 01/10/24 01/10/24 01/10/24 Range/Units 04:15 04:31 04:44 WBC 31.5 H* (4.8-10.8) X10*3/uL RBC 4.12 L (4.60-5.80) X10*6/uL Hgb 13.2 L (14.0-18.0) g/dl Hct 37.4 L (42.0-52.0) % MCV 90.8 (80.0-98.0) fL MCH 32.0 (27.0-33.0) pg MCHC 35.3 (31.0-36.0) g/dl RDW 12.2 (11.0-16.0) % Plt Count 105 L (160-400) X10*3/uL MPV 12.3 (9.4-12.4) fL Immature Gran % (Auto) Cancelled Neut % (Auto) Cancelled Lymph % (Auto) Cancelled [place] % (Auto) Cancelled Eos % (Auto) Cancelled Baso % (Auto) Cancelled Lymph # (Auto) Cancelled [place] # (Auto) Cancelled Eos # (Auto) Cancelled Baso # (Auto) Cancelled Abs Immat Gran (auto) Cancelled Absolute Neuts (auto) Cancelled Absolute Nucleated RBC 0.000 (0.0-0.012) X10*3/uL Nucleated RBC % (auto) 0.0 (0.0-0.2) /100WBC Neutrophils % (Manual) 83 H (45-73) % Band Neutrophils % 8 H (3-5) % Lymphocytes % (Manual) 5 L (20-40) % Monocytes % (Manual) 4 (2-11) % Abs Neuts (Manual) 28.7 H (2.0-8.3) X10*3/uL Lymphocytes # (Manual) 1.6 (1.2-4.9) X10*3/uL Monocytes # (Manual) 1.3 H (0.1-1.2) X10*3/uL Platelet Estimate SLIGHTLY DECREASED (NORMAL) Large Platelets PRESENT Plt Morphology Comment NOTED RBC Morphology NORMAL Sodium 135 (135-145) mmol/L Potassium 4.1 (3.3-5.1) mmol/L Chloride 101 (96-108) mmol/L Carbon Dioxide 20 L (22-29) mmol/L Anion Gap 18 (12-20) BUN 23 H (9-16) mg/dL Creatinine 1.61 H (0.5-1.4) mg/dL Estim Creat Clear Calc 56.0 Estimated GFR 43 Random Glucose 148 H (60-115) mg/dL Lactic Acid (0.5-2.0) mmol/L Calcium 9.3 (8.4-10.2) mg/dL Total Bilirubin 1.7 H (0.0-1.0) mg/dL Direct Bilirubin 0.7 H (0.0-0.5) mg/dL AST 23 (5-37) U/L ALT 28 (0-40) U/L Alkaline Phosphatase 107 (39-117) U/L Total Protein 7.2 (6.5-8.0) g/dL Albumin 3.8 (3.5-5.0) g/dL Lipase 8 (8-78) U/L Procalcitonin 10.53 ng/mL Urine Color Yellow Urine Appearance Cloudy Urine pH 5.5 (5.0-9.0) Ur Specific [place] 1.010 (1.005-1.025) Urine Protein Trace (Neg-Trace) mg/dL Urine Glucose (UA) Negative (Negative) mg/dL Urine Ketones Negative (Negative) mg/dL Urine Blood Moderate (2+) H (Negative) Urine Nitrite Negative (Negative) Ur Leukocyte Esterase Moderate (2+) H (Negative) Urine RBC 3-5 H (0-2) /HPF Urine WBC 21-50 H (0-5) /HPF Urine WBC Clumps Present Ur Squamous Epith Cells 3-5 (0-2) /HPF Urine Bacteria None Seen (None Seen) Hyaline Casts 0-2 (0-2) /LPF 01/10/24 Range/Units 05:08 WBC (4.8-10.8) X10*3/uL RBC (4.60-5.80) X10*6/uL Hgb (14.0-18.0) g/dl Hct (42.0-52.0) % MCV (80.0-98.0) fL MCH (27.0-33.0) pg MCHC (31.0-36.0) g/dl RDW (11.0-16.0) % Plt Count (160-400) X10*3/uL MPV (9.4-12.4) fL Immature Gran % (Auto) Neut % (Auto) Lymph % (Auto) [place] % (Auto) Eos % (Auto) Baso % (Auto) Lymph # (Auto) [place] # (Auto) Eos # (Auto) Baso # (Auto) Abs Immat Gran (auto) Absolute Neuts (auto) Absolute Nucleated RBC (0.0-0.012) X10*3/uL Nucleated RBC % (auto) (0.0-0.2) /100WBC Neutrophils % (Manual) (45-73) % Band Neutrophils % (3-5) % Lymphocytes % (Manual) (20-40) % Monocytes % (Manual) (2-11) % Abs Neuts (Manual) (2.0-8.3) X10*3/uL Lymphocytes # (Manual) (1.2-4.9) X10*3/uL Monocytes # (Manual) (0.1-1.2) X10*3/uL Platelet Estimate (NORMAL) Large Platelets Plt Morphology Comment RBC Morphology Sodium (135-145) mmol/L Potassium (3.3-5.1) mmol/L Chloride (96-108) mmol/L Carbon Dioxide (22-29) mmol/L Anion Gap (12-20) BUN (9-16) mg/dL Creatinine (0.5-1.4) mg/dL Estim Creat Clear Calc Estimated GFR Random Glucose (60-115) mg/dL Lactic Acid 1.4 (0.5-2.0) mmol/L Calcium (8.4-10.2) mg/dL Total Bilirubin (0.0-1.0) mg/dL Direct Bilirubin (0.0-0.5) mg/dL AST (5-37) U/L ALT (0-40) U/L Alkaline Phosphatase (39-117) U/L Total Protein (6.5-8.0) g/dL Albumin (3.5-5.0) g/dL Lipase (8-78) U/L Procalcitonin ng/mL Urine Color Urine Appearance Urine pH (5.0-9.0) Ur Specific [place] (1.005-1.025) Urine Protein (Neg-Trace) mg/dL Urine Glucose (UA) (Negative) mg/dL Urine Ketones (Negative) mg/dL Urine Blood (Negative) Urine Nitrite (Negative) Ur Leukocyte Esterase (Negative) Urine RBC (0-2) /HPF Urine WBC (0-5) /HPF Urine WBC Clumps Ur Squamous Epith Cells (0-2) /HPF Urine Bacteria (None Seen) Hyaline Casts (0-2) /LPF Independent Interpretation I performed an independent interpretation of an: CT Scan Independent Historian Clinical information obtained from an independent historian. History obtained from or confirmed by: Other (daughter) External Record Review External record reviewed: Inpatient record Discharge Plan Discharge Clinical Impression: TACHO (acute kidney injury) Urinary tract infection Qualifiers: Urinary tract infection type: acute cystitis Hematuria presence: without hematuria Qualified Code(s): N30.00 - Acute cystitis without hematuria Elevated WBC count Qualifiers: Leukocytosis type: unspecified Qualified Code(s): D72.829 - Elevated white blood cell count, unspecified Patient Disposition: Admitted As Inpatient Print Language: English
[2024-01-10] MEDS: cefTRIAXone sodium 2 GM in 0.9 % Sodium Chloride 50 ML IV (05:13)
[2024-01-10 05:14] LABS: Procalcitonin 10.53 ng/mL
[2024-01-10] MEDS: 0.9 % Sodium Chloride 1,000 ML 999 ML IV ×2 (05:16→08:18)
[2024-01-10 05:19] LABS: Appearance Urine Cloudy; Color Urine Yellow; Glucose Urine UA Negative (Negative); Leukocyte Esterase Urine Moderate (2+) (Negative); Nitrite Urine Negative (Negative); PH 5.5 (5.0-9.0); UMIC TRIGGER UACC YES; Urine Blood Moderate (2+) (Negative); Urine Ketones Negative (Negative); Urine Protein Trace mg/dL (Neg-Trace)
[2024-01-10 05:27] LABS: Bacteria Urine None Seen (None Seen); Hyaline Casts Urine 0-2 /LPF (0-2); UACC Culture Trigger YES; WBC Clumps Urine Present; WBC Urine 21-50 /HPF (0-5)
[2024-01-10 05:29] LABS: Lactic Acid 1.4 mmol/L (0.5-2.0)
--- NOTE | 2024-01-10 05:47 | PC.NURSE ---
pt is a difficult stick. Delaying labs. First IV line placed in left forearm. Fluids running slowly. Second IV line placed by RN, Sofía. PT off to CT scan. Dr. Lucia would like result of CT scan before placing shepherd.
--- NOTE | 2024-01-10 05:51 | PC.NURSE ---
three bag of fluids running on pressure bags.
--- NOTE | 2024-01-10 06:26 | PC.NURSE ---
fluids still running
[2024-01-10] MEDS: levoFLOXacin/D5W 250 MG/50 ML PIGGYBACK 50 MG IV (07:03)
[2024-01-10] MEDS: Morphine Sulfate 4 MG/ML CARTRIDGE IVPUSH (07:03)
[2024-01-10] MEDS: Lidocaine HCl 2 % Urojet 10 ML JEL.PF.APP TOPICAL (07:11)
--- NOTE | 2024-01-10 10:08 | PHA.MEDREC ---
Pharmacy Consult ? Medication Reconciliation Pharmacy has completed the medication reconciliation.Utilized assembly line machine operator services.
[2024-01-10] MEDS: Finasteride 5 MG TABLET PO (15:01)
--- NOTE | 2024-01-10 15:56 | P.HPHOSP_ITS ---
History of Present Illness Date of Service: 01/10/24 Attending physician on admission: Mirela Keita Chief Complaint: sepsis ,uti 63-year-old male with history of generalized anxiety disorder, possible CKD possible stage III, ANA on CPAP, arthritis knee: He came to the hospital because he is having pain with urination also having difficulty urinating, having subjective fever and chills at home-so decided to come go to his primary doctor 1st and was prescribed Levaquin yesterday got 1 dose and subsequently was not improving and came to the hospital now: Patient says that he is still having difficulty urinating and also pain, found to have WBC count of 31.5 k, tachycardic, tachypnea, CT abdomen showedThe bladder is distended and there is some stranding around the bladder. There is stranding around the prostate and seminal vesicles. Patient was given ceftriaxone and Levaquin as well as fluid and Palacios placed in the ED and requested admission for sepsis secondary to UTI. Of note: Patient follows up with Urology Dr. Payton out patiently unclear why. Also has CKD follows up with Dr. kahn out patiently. Denies any new complaint of chest pain or shortness of breath or abdominal pain or nausea or vomiting Denies any cough Denies any weakness or numbness. Lab imaging reviewed: CBC:31.5k,platletes 105k CT abdomen showedThe bladder is distended and there is some stranding around the bladder. There is stranding around the prostate and seminal vesicles. bun/cr : 23/1.6 Review of Systems 2 Review of Systems: as above. [facility] Medical History Hyperparathyroidism Total bilirubin, elevated LOR (generalized anxiety disorder) CKD (chronic kidney disease) Transaminitis Obese Anxiety associated with depression Mild major depression Impaired glucose tolerance ANA on CPAP Knee osteoarthritis Hypovitaminosis D Family History Father Cancer Stroke Cirrhosis Mother Diabetes Surgical History Hx of colonoscopy Social History Housing: House Alcohol intake: never Patient Tobacco Use Status: Never used Tobacco Smoked in Last 30 Days: No e-Cigarette/Vaping Use: Never Used Second Hand Smoke Exposure: No Use of substances other than those prescribed or required for medical reasons: No Advance Directives: No Advance Directives Information Provided: Yes Do you have a plan to hurt others: No Plan service: No Current occupational status: disabled Cognitive needs: Yes Hearing needs: No Vision needs: Yes Meds Allergies Allergy/AdvReac Type Severity Reaction Status Date / Time No Known Allergies Allergy Verified 01/10/24 03:00 [No Known Allergies*] Active Medications: Current Medications Acetaminophen (Acetaminophen 325 Mg Tablet) 650 mg PO Q6H PRN PRN Reason: Fever Acetaminophen (Acetaminophen 325 Mg Tablet) 650 mg PO Q6H PRN PRN Reason: Pain, Mild (Pain Scale 1-3) Acetaminophen (Acetaminophen 325 Mg Tablet) 650 mg PO Q6H PRN PRN Reason: Headache Calcium Carbonate (Calcium Carbonate 750 Mg Tab.Chew) 750 mg PO Q6H PRN PRN Reason: Heartburn Finasteride (Finasteride 5 Mg Tablet) 5 mg PO DAILY [facility] Last Admin: 01/10/24 15:01 Dose: 5 mg Ceftriaxone Sodium 2 gm/ (Sodium Chloride) 50 mls @ 100 mls/hr IV Q24H [facility] Magnesium Hydroxide (Milk Of Magnesia 30 Ml Oral.Susp) 30 ml PO DAILY PRN PRN Reason: Constipation Melatonin (Melatonin 3 Mg Tablet) 6 mg PO BEDTIME PRN PRN Reason: Insomnia Polyethylene Glycol (Polyethylene Glycol 3350 17 Gm Powd.Pack) 17 gm PO DAILY PRN PRN Reason: Constipation Sodium Chloride (0.9 % Sodium Chloride Flush 3 Ml Syringe) 3 ml IVFLUSH QSHIFT [facility] Tamsulosin HCl (Tamsulosin Hcl 0.4 Mg Capsule) 0.4 mg PO BEDTIME [facility] Physical Exam 2 Vital Signs and Narrative: Vital Signs: Last Vital Signs Temp 98 F 01/10/24 07:13 Pulse 91 01/10/24 08:18 Resp 15 01/10/24 08:18 BP 105/59 L 01/10/24 08:18 Pulse Ox 98 01/10/24 08:18 O2 Del Method Room Air 01/10/24 07:13 BMI result Body Mass Index 33.9 Appearance: Alert.? Oriented X3.? not in distress.? Eyes: Pupils equal, round and reactive to light.? Sclera nonicteric.? ENT: Pharynx normal.? Moist mucous membranes. cvs: rrr, [id number] , no murmur res: clear to auscultation ,no rhonchii or wheezing abd: no rebound or guarding ,some suprapubic discomfort, bs present. no cva tenderness ext pulses present , no cyanosis. neuro: axo3 , nonfocal. Results Labs 01/10/24 04:31 01/10/24 04:15 Labs: Laboratory Results - last 24 hr 01/10/24 01/10/24 01/10/24 04:15 04:31 04:44 MCV 90.8 MCH 32.0 MCHC 35.3 RDW 12.2 Plt Count 105 L MPV 12.3 Immature Gran % (Auto) Cancelled Neut % (Auto) Cancelled Lymph % (Auto) Cancelled Taylor % (Auto) Cancelled Eos % (Auto) Cancelled Baso % (Auto) Cancelled Lymph # (Auto) Cancelled Taylor # (Auto) Cancelled Eos # (Auto) Cancelled Baso # (Auto) Cancelled Abs Immat Gran (auto) Cancelled Absolute Neuts (auto) Cancelled Absolute Nucleated RBC 0.000 Nucleated RBC % (auto) 0.0 Neutrophils % (Manual) 83 H Band Neutrophils % 8 H Lymphocytes % (Manual) 5 L Monocytes % (Manual) 4 Abs Neuts (Manual) 28.7 H Lymphocytes # (Manual) 1.6 Monocytes # (Manual) 1.3 H Platelet Estimate SLIGHTLY DECREASED Large Platelets PRESENT Plt Morphology Comment NOTED RBC Morphology NORMAL Anion Gap 18 Estim Creat Clear Calc 56.0 Estimated GFR 43 Random Glucose 148 H Lactic Acid Calcium 9.3 Total Bilirubin 1.7 H Direct Bilirubin 0.7 H AST 23 ALT 28 Alkaline Phosphatase 107 Total Protein 7.2 Albumin 3.8 Lipase 8 Procalcitonin 10.53 Urine Color Yellow Urine Appearance Cloudy Urine pH 5.5 Ur Specific [place] 1.010 Urine Protein Trace Urine Glucose (UA) Negative Urine Ketones Negative Urine Blood Moderate (2+) H Urine Nitrite Negative Ur Leukocyte Esterase Moderate (2+) H Urine RBC 3-5 H Urine WBC 21-50 H Urine WBC Clumps Present Ur Squamous Epith Cells 3-5 Urine Bacteria None Seen Hyaline Casts 0-2 01/10/24 05:08 MCV MCH MCHC RDW Plt Count MPV Immature Gran % (Auto) Neut % (Auto) Lymph % (Auto) Taylor % (Auto) Eos % (Auto) Baso % (Auto) Lymph # (Auto) Taylor # (Auto) Eos # (Auto) Baso # (Auto) Abs Immat Gran (auto) Absolute Neuts (auto) Absolute Nucleated RBC Nucleated RBC % (auto) Neutrophils % (Manual) Band Neutrophils % Lymphocytes % (Manual) Monocytes % (Manual) Abs Neuts (Manual) Lymphocytes # (Manual) Monocytes # (Manual) Platelet Estimate Large Platelets Plt Morphology Comment RBC Morphology Anion Gap Estim Creat Clear Calc Estimated GFR Random Glucose Lactic Acid 1.4 Calcium Total Bilirubin Direct Bilirubin AST ALT Alkaline Phosphatase Total Protein Albumin Lipase Procalcitonin Urine Color Urine Appearance Urine pH Ur Specific [place] Urine Protein Urine Glucose (UA) Urine Ketones Urine Blood Urine Nitrite Ur Leukocyte Esterase Urine RBC Urine WBC Urine WBC Clumps Ur Squamous Epith Cells Urine Bacteria Hyaline Casts Imaging Radiologist's Impressions: Impressions Abdomen/Pelvis CT 01/10/24 05:50 IMPRESSION: There are bilateral nonobstructing renal calculi. The bladder is distended and there is some stranding around the bladder. There is stranding around the prostate and seminal vesicles. This can be seen with infection or inflammation. There is no abscess demonstrated. Fleischner guidelines were followed. Assessment and Plan (1) Sepsis: Qualifiers: Sepsis type: sepsis due to unspecified organism Sepsis acute organ dysfunction status: without acute organ dysfunction Qualified Code(s): A41.9 - Sepsis, unspecified organism Status: Acute (2) TACHO (acute kidney injury): Status: Acute (3) Urinary tract infection: Qualifiers: Hematuria presence: without hematuria Urinary tract infection type: a cute cystitis Qualified Code(s): N30.00 - Acute cystitis without hematuria Status: Acute Plan 63-year-old male with history of CKD, sleep apnea on CPAP, generalized anxiety- came with urinary retention, TACHO, sepsis secondary to UTI. Sepsis secondary to UTI: White count of 31.5k, tachypnea, tachycardia Platelets chronically low not secondary to sepsis Lactic acid normal TACHO secondary to possible urinary retention not due to sepsis. Continue IV hydration, IV antibiotics(ceftriaxone ), blood culture and urine culture TACHO on CKD: Possibly secondary to urinary retention Patient has Palacios Added Flomax, urology evaluation, continue hide IV hydration. Monitor renal function electrolyte closely. Sleep apnea: On CPAP. Anxiety disorder: Continue home medications. DVT prophylaxis: Mechanical devices Patient will benefit from 2 midnight stay considering sepsis secondary to UTI, less responsive to outpatient antibiotics: Need IV antibiotics, IV hydration for urinary retention as well as TACHO, Urology Input and also renal function electrolyte monitoring. Above management discussed with the patient detail length at bedside with family present with the help of sr. merchandise planner, total dialysis spent 70 minute. Patient understand and in agreement with the above plan. Patient full code. Quality Stroke Does the patient have a stroke diagnosis?: No VTE Prior VTE?: No VTE Risk Level:: Medical - moderate - high VTE Device Contraindication: N/A - Device Ordered VTE Drug Contraindication: N/A - Med Ordered
[2024-01-10] MEDS: 0.9 % Sodium Chloride Flush 3 ML SYRINGE IVFLUSH (16:05)
[2024-01-10] MEDS: 0.9 % Sodium Chloride 1,000 ML 100 ML IVCONT (16:26)
--- NOTE | 2024-01-10 16:27 | P.CNUR_ITS ---
History of Present Illness Consult details Consult date: 01/10/24 Narrative: CC: Urinary retention with possible infection 63-year-old male Ukrainian-speaking Known to Urology for kidney stones Presents with difficulty urination. Subjective fever and chills. White count 31.5 and tachycardic Palacios catheter placed with significant drainage over [address] scan shows dilated bladder with thickened bladder wall. Recommend Palacios catheter remain for 30 days. Initiate alpha-tomasz with finasteride. Voiding trial in office Review of Systems 2 Constitutional: Constitutional: Reports as per HPI and Reports no additional constitutional complaints Cardiovascular: Cardiovascular: Reports as per HPI and Reports no additional cardiovascular complaints Respiratory: Respiratory: Reports as per HPI and Reports no additional respiratory complaints Gastrointestinal: Gastrointestinal: Reports as per HPI and Reports no additional gastrointestinal complaints Genitourinary: Genitourinary: Reports as per HPI Musculoskeletal: Musculoskeletal: Reports no additional musculoskeletal complaints and Reports as per HPI Neurologic: Reports system reviewed and no additional complaints, except as documented and Reports as per HPI PMFSH Past Medical History Medical History Hyperparathyroidism Total bilirubin, elevated LOR (generalized anxiety disorder) CKD (chronic kidney disease) Transaminitis Obese Anxiety associated with depression Mild major depression Impaired glucose tolerance ANA on CPAP Knee osteoarthritis Hypovitaminosis D Family History Family History Father Cancer Stroke Cirrhosis Mother Diabetes Surgical History Surgical History Hx of colonoscopy Social History Social History Housing: House Alcohol intake: never Patient Tobacco Use Status: Never used Tobacco Smoked in Last 30 Days: No e-Cigarette/Vaping Use: Never Used Second Hand Smoke Exposure: No Use of substances other than those prescribed or required for medical reasons: No Advance Directives: No Advance Directives Information Provided: Yes Do you have a plan to hurt others: No Plan service: No Current occupational status: disabled Cognitive needs: Yes Hearing needs: No Vision needs: Yes Meds Allergies Allergy/AdvReac Type Severity Reaction Status Date / Time No Known Allergies Allergy Verified 01/10/24 03:00 [No Known Allergies*] Active Medications: Current Medications Acetaminophen (Acetaminophen 325 Mg Tablet) 650 mg PO Q6H PRN PRN Reason: Fever Acetaminophen (Acetaminophen 325 Mg Tablet) 650 mg PO Q6H PRN PRN Reason: Pain, Mild (Pain Scale 1-3) Acetaminophen (Acetaminophen 325 Mg Tablet) 650 mg PO Q6H PRN PRN Reason: Headache Calcium Carbonate (Calcium Carbonate 750 Mg Tab.Chew) 750 mg PO Q6H PRN PRN Reason: Heartburn Finasteride (Finasteride 5 Mg Tablet) 5 mg PO DAILY [facility] Last Admin: 01/10/24 15:01 Dose: 5 mg Ceftriaxone Sodium 2 gm/ (Sodium Chloride) 50 mls @ 100 mls/hr IV Q24H [facility] Sodium Chloride (Ns) 1,000 mls @ 100 mls/hr IVCONT .Q10H [facility] Magnesium Hydroxide (Milk Of Magnesia 30 Ml Oral.Susp) 30 ml PO DAILY PRN PRN Reason: Constipation Melatonin (Melatonin 3 Mg Tablet) 6 mg PO BEDTIME PRN PRN Reason: Insomnia Polyethylene Glycol (Polyethylene Glycol 3350 17 Gm Powd.Pack) 17 gm PO DAILY PRN PRN Reason: Constipation Sodium Chloride (0.9 % Sodium Chloride Flush 3 Ml Syringe) 3 ml IVFLUSH QSHIFT [facility] Last Admin: 01/10/24 16:05 Dose: 3 ml Tamsulosin HCl (Tamsulosin Hcl 0.4 Mg Capsule) 0.4 mg PO BEDTIME [facility] Physical Exam 2 Vital Signs: Vital Signs: Last Vital Signs Temp 98 F 01/10/24 07:13 Pulse 91 01/10/24 08:18 Resp 15 01/10/24 08:18 BP 105/59 L 01/10/24 08:18 Pulse Ox 98 01/10/24 08:18 O2 Del Method Room Air 01/10/24 07:13 BMI result Body Mass Index 33.9 Const: General: cooperative, healthy appearing, comfortable and no acute distress Orientation/consciousness: patient oriented x3 HEENT: Face and sinus: Yes normal facial exam Mouth: moist mucous membranes Neck: Neck: Yes normal visual inspection, Yes full ROM and Yes trachea midline Chest: Chest palpation & inspection: normal inspection of the chest Resp: Effort & Inspection: normal respiratory effort, able to speak in complete sentences and no respiratory distress GI: Inspection: Yes normal to inspection Back/Spine/Pelvis: Cervical Spine: normal cervical lordosis Thoracic/Lumbar Spine: thoracic and lumbar spine normal to inspection Skin: General skin exam: no rashes or lesions noted Neuro: General: patient oriented x3, tone normal and moves all extremities Extrem: General: Yes normal to inspection and Yes capillary refill normal Results Labs 01/10/24 04:31 01/10/24 04:15 Labs: Abnormal lab results 01/10/24 01/10/24 01/10/24 Range/Units 04:15 04:31 04:44 WBC 31.5 H* (4.8-10.8) X10*3/uL RBC 4.12 L (4.60-5.80) X10*6/uL Hgb 13.2 L (14.0-18.0) g/dl Hct 37.4 L (42.0-52.0) % Plt Count 105 L (160-400) X10*3/uL Neutrophils % (Manual) 83 H (45-73) % Band Neutrophils % 8 H (3-5) % Lymphocytes % (Manual) 5 L (20-40) % Abs Neuts (Manual) 28.7 H (2.0-8.3) X10*3/uL Monocytes # (Manual) 1.3 H (0.1-1.2) X10*3/uL Carbon Dioxide 20 L (22-29) mmol/L BUN 23 H (9-16) mg/dL Creatinine 1.61 H (0.5-1.4) mg/dL Random Glucose 148 H (60-115) mg/dL Total Bilirubin 1.7 H (0.0-1.0) mg/dL Direct Bilirubin 0.7 H (0.0-0.5) mg/dL Urine Blood Moderate (2+) H (Negative) Ur Leukocyte Esterase Moderate (2+) H (Negative) Urine RBC 3-5 H (0-2) /HPF Urine WBC 21-50 H (0-5) /HPF Short CBC 01/10/24 Range/Units 04:31 WBC 31.5 H* (4.8-10.8) X10*3/uL Hgb 13.2 L (14.0-18.0) g/dl Hct 37.4 L (42.0-52.0) % Plt Count 105 L (160-400) X10*3/uL BMP 01/10/24 04:15 Sodium 135 Potassium 4.1 Chloride 101 Carbon Dioxide 20 L BUN 23 H Creatinine 1.61 H Calcium 9.3 Liver Function 01/10/24 Range/Units 04:15 Total Bilirubin 1.7 H (0.0-1.0) mg/dL Direct Bilirubin 0.7 H (0.0-0.5) mg/dL AST 23 (5-37) U/L ALT 28 (0-40) U/L Alkaline Phosphatase 107 (39-117) U/L Albumin 3.8 (3.5-5.0) g/dL Urine 01/10/24 Range/Units 04:44 Urine Color Yellow Urine Appearance Cloudy Urine pH 5.5 (5.0-9.0) Ur Specific [place] 1.010 (1.005-1.025) Urine Protein Trace (Neg-Trace) mg/dL Urine Glucose (UA) Negative (Negative) mg/dL All other labs normal. Assessment and Plan (1) Urinary tract infection: Qualifiers: Hematuria presence: without hematuria Urinary tract infection type: a cute cystitis Qualified Code(s): N30.00 - Acute cystitis without hematuria Status: Acute (2) Urinary retention: Status: Acute Plan Palacios catheter to remain 4 weeks Will be out use catheter cap after 24-36 hrs Switch to catheter cap usage Procedures Date of Service Date of Service: 01/10/24
[2024-01-10] MEDS: Tamsulosin HCL 0.4 MG CAPSULE PO (23:37)
[2024-01-11] VITALS (7 sets, daily range): BP systolic 115–147; BP diastolic 62–82; PULSE 84–93; RESP 14–20; TEMP 36.8–37.6; O2SAT 94–97
[2024-01-11] MEDS: cefTRIAXone sodium 2 GM in 0.9 % Sodium Chloride 50 ML IV (05:13)
[2024-01-11] MEDS: 0.9 % Sodium Chloride 1,000 ML 100 ML IVCONT (05:18)
--- NOTE | 2024-01-11 08:28 | MHC.CM.PN ---
CM met with Patient and several family members at bedside and addressed IMM with them(original was given to Patient and a copy has been placed on the chart). 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 Home/self care is the goal and CM has initiated and will follow for dc planning. PCP is Dr. Sahara Lagos.
[2024-01-11] MEDS: Finasteride 5 MG TABLET PO (08:31)
[2024-01-11] MEDS: 0.9 % Sodium Chloride Flush 3 ML SYRINGE IVFLUSH ×2 (08:32→16:07)
[2024-01-11 12:14] LABS: Hematocrit 35.6 % (42.0-52.0); Hemoglobin 12.2 g/dl (14.0-18.0); Mean Corpuscular HGB Conc 34.3 g/dl (31.0-36.0); Mean Corpuscular Hemoglobin 32.1 pg (27.0-33.0); Mean Corpuscular Volume 93.7 fL (80.0-98.0); Mean Platelet Volume 12.9 fL (9.4-12.4); Platelet Count 119 X10*3/uL (160-400); Red Cell Distribution Width 12.4 % (11.0-16.0); White Blood Count 18.2 X10*3/uL (4.8-10.8)
[2024-01-11 12:23] LABS: Anion Gap 12 (12-20); Blood Urea Nitrogen 14 mg/dL (9-16); Calcium 8.9 mg/dL (8.4-10.2); Carbon Dioxide 21 mmol/L (22-29); Chloride 108 mmol/L (96-108); Creatinine Clr Calc Pharmacy 79.1; Estimated Glomerular Filt Rate > 60; Glucose Random 160 mg/dL (60-115); Potassium 4.1 mmol/L (3.3-5.1); Sodium 137 mmol/L (135-145)
--- NOTE | 2024-01-11 14:37 | HO.PM.IMPN ---
Subjective Subjective Date of Service: 01/11/24 Interval History: sepsis ,uti Review of Systems Urinary discomfort seems to be improving, denies any chest pain or shortness of breath or fever or chills. Physical Exam Vital Signs: Vital Signs: Last Vital Signs Temp 99.7 F 01/11/24 11:36 Pulse 93 01/11/24 11:36 Resp 18 01/11/24 11:36 BP 147/82 H 01/11/24 11:36 Pulse Ox 95 01/11/24 11:36 O2 Del Method Room Air 01/11/24 11:36 BMI result Body Mass Index 33.9 Appearance: Alert.? Oriented X3.? cvs: rrr, [id number] , no murmur res: clear to auscultation ,no rhonchii or wheezing abd: no rebound or guarding ,nt, bs present. ext pulses present , no cyanosis . Gu-has shepherd neuro: axo3 , nonfocal. Objective Data Active Medications Acetaminophen (Acetaminophen 325 Mg Tablet) 650 mg PO Q6H PRN PRN Reason: Fever Acetaminophen (Acetaminophen 325 Mg Tablet) 650 mg PO Q6H PRN PRN Reason: Pain, Mild (Pain Scale 1-3) Acetaminophen (Acetaminophen 325 Mg Tablet) 650 mg PO Q6H PRN PRN Reason: Headache Calcium Carbonate (Calcium Carbonate 750 Mg Tab.Chew) 750 mg PO Q6H PRN PRN Reason: Heartburn Finasteride (Finasteride 5 Mg Tablet) 5 mg PO DAILY [facility] Last Admin: 01/11/24 08:31 Dose: 5 mg Documented By: ROMAN Ceftriaxone Sodium 2 gm/ (Sodium Chloride) 50 mls @ 100 mls/hr IV Q24H [facility] Last Infusion: 01/11/24 05:48 Dose: Infused Documented By: CHERRY Magnesium Hydroxide (Milk Of Magnesia 30 Ml Oral.Susp) 30 ml PO DAILY PRN PRN Reason: Constipation Melatonin (Melatonin 3 Mg Tablet) 6 mg PO BEDTIME PRN PRN Reason: Insomnia Polyethylene Glycol (Polyethylene Glycol 3350 17 Gm Powd.Pack) 17 gm PO DAILY PRN PRN Reason: Constipation Sodium Chloride (0.9 % Sodium Chloride Flush 3 Ml Syringe) 3 ml IVFLUSH QSHIFT [facility] Last Admin: 01/11/24 08:32 Dose: 3 ml Documented By: ROMAN Tamsulosin HCl (Tamsulosin Hcl 0.4 Mg Capsule) 0.4 mg PO BEDTIME [facility] Last Admin: 01/10/24 23:37 Dose: 0.4 mg Documented By: CHERRY Labs 01/11/24 11:56 01/11/24 11:56 Labs: Laboratory Results - last 24 hr 01/11/24 11:56 MCV 93.7 MCH 32.1 MCHC 34.3 RDW 12.4 Plt Count 119 L MPV 12.9 H Absolute Nucleated RBC 0.000 Nucleated RBC % (auto) 0.0 Anion Gap 12 Estim Creat Clear Calc 79.1 Estimated GFR > 60 Random Glucose 160 H Calcium 8.9 Microbiology Microbiology Results: Microbiology 01/10/24 05:08 Blood Culture - Preliminary Blood - Venous No growth after 24 hours. 01/10/24 05:11 Blood Culture - Preliminary Blood - Venous No growth after 24 hours. Assessment and Plan (1) Urinary retention: Status: Acute (2) Sepsis: Status: Acute (3) TACHO (acute kidney injury): Status: Acute Plan 63-year-old male with history of CKD, sleep apnea on CPAP, generalized anxiety-came with urinary retention, TACHO, sepsis secondary to UTI. Sepsis secondary to UTI: wbc improving 31.5k, tachycardia improving Platelets chronically low not secondary to sepsis Lactic acid normal TACHO secondary to possible urinary retention not due to sepsis. Continue IV hydration, IV antibiotics(ceftriaxone ), blood culture and urine culture TACHO on CKD: Possibly secondary to urinary retention Patient has Shepherd Added Flomax, urology evaluation, continue hide IV hydration. Monitor renal function electrolyte closely. Sleep apnea: On CPAP. Anxiety disorder: Continue home medications. DVT prophylaxis: lovenox. Ongoing hospitalization need for sepsis secondary to UTI, less responsive to outpatient antibiotics: Need IV antibiotics, IV hydration for urinary retention as well as TACHO, Urology Input and also renal function electrolyte monitoring. Quality Stroke Does the patient have a stroke diagnosis?: No VTE Prior VTE?: No VTE Risk Level:: Medical - moderate - high VTE Device Contraindication: N/A - Device Ordered VTE Drug Contraindication: N/A - Med Ordered
[2024-01-11] MEDS: Enoxaparin Sodium 40 MG/0.4 ML SYRINGE SUBCUT (16:06)
[2024-01-11] MEDS: Omeprazole 20 MG CAPSULE.DR PO (16:06)
[2024-01-11] MEDS: Melatonin 3 MG TABLET 6 MG PO (19:35)
[2024-01-11] MEDS: Tamsulosin HCL 0.4 MG CAPSULE PO (19:39)
[2024-01-12] VITALS: BP 131/60; PULSE 80; RESP 16; TEMP 36.5; O2SAT 94
[2024-01-12] MEDS: 0.9 % Sodium Chloride Flush 3 ML SYRINGE IVFLUSH ×2 (00:09→08:53)
[2024-01-12 04:00] VITALS: BP 140/83; PULSE 84; RESP 16; TEMP 36.8; O2SAT 94
[2024-01-12] MEDS: cefTRIAXone sodium 2 GM in 0.9 % Sodium Chloride 50 ML IV (05:51)
[2024-01-12] MEDS: Omeprazole 20 MG CAPSULE.DR PO (05:51)
[2024-01-12 07:04] VITALS: BP 140/78; PULSE 80; RESP 18; TEMP 36.9; O2SAT 95
--- NOTE | 2024-01-12 08:17 | MHC.CM.PN ---
Patient has been medically cleared for dc to home today, self care.Last IMM addressed yesterday.
[2024-01-12] MEDS: Finasteride 5 MG TABLET PO (08:51)
--- NOTE | 2024-01-12 10:12 | MHC.CM.PN ---
Per ROUNDS discussion, Patient will be dc 'd with a new shepherd cath; a referral has been made to [facility], who is aware of today's dc.
--- NOTE | 2024-01-12 10:48 | P.F2F_ITS ---
Service Date Service Date: 01/12/24 Encounter Date of encounter: 01/12/24 Encounter: UTI, urinary retention, TACHO Reasons for Services Signs and symptoms assessed: fever or Dysuria Reason for intermediate: medication management, medication treatment, teach disease management and GI/ assessment ( Palacios management) MD Overseeing Care: Sahara Arnett Homebound: Leaving the home is medically contraindicated at this time without the asist of a device and/or another person due th the listed conditions above and below. Reason homebound: weakness related to hospital stay Homebound supporting statement: patient is generalized weak post hospitalization stay has multiple comorbidities including urinary retention, UTI, has Palacios- need help with blood draws, appointments, Palacios management. Certification: Based on the above findings, I certify that this patient is confined to the home and needs intermittent intermediate care, physical therapy and/or speech therapy, or continues to need occupational therapy. The patient is under my care, and I have initiated the establishment of the plan of care. The patient will be followed by a physician who will periodically review the plan of care. Time Spent With Patient Time: Total time managing care of this patient today ____ minutes.
--- NOTE | 2024-01-12 10:56 | P.DS_ITS ---
DS: Providers Provider Date of Service: 01/12/24 Date of admission: 01/10/24 10:40 Date of discharge: 01/12/24 Primary care physician: Sahara Arnett MD Consults: 01/10/24 10:44 Consult to Urology Routine Consulting Provider: Klyer Payton Reason for consultation: UTI/urinary retention Has provider been notified: No Attending physician on discharge: Mirela Keita Discharging clinician: Mirela Keita DS: Diagnosis Discharge Diagnosis (1) Urinary retention: Status: Acute (2) Sepsis: Status: Acute (3) TACHO (acute kidney injury): Status: Acute DS: Summary Hospital Course Hospital Course: 63-year-old male with history of generalized anxiety disorder, possible CKD possible stage III, ANA on CPAP, arthritis knee: He came to the hospital because he is having pain with urination also having difficulty urinating, having subjective fever and chills at home-so decided to come go to his primary doctor 1st and was prescribed Levaquin yesterday got 1 dose and subsequently was not improving and came to the hospital now: Patient says that he is still having difficulty urinating and also pain, found to have WBC count of 31.5 k, tachycardic, tachypnea, CT abdomen showedThe bladder is distended and there is some stranding around the bladder. There is stranding around the prostate and seminal vesicles. Patient was given ceftriaxone and Levaquin as well as fluid and Shepherd placed in the ED and requested admission for sepsis secondary to UTI. Of note: Patient follows up with Urology Dr. Payton out patiently unclear why. Also has CKD follows up with Dr. kahn out patiently. Denies any new complaint of chest pain or shortness of breath or abdominal pain or nausea or vomiting Denies any cough Denies any weakness or numbness. Lab imaging reviewed: CBC:31.5k,platletes 105k CT abdomen showedThe bladder is distended and there is some stranding around the bladder. There is stranding around the prostate and seminal vesicles. bun/cr : 23/1.6. Hospital course: Patient was admitted for difficulty urinating : found to have TACHO, urinary retention and Sepsis secondary toUTI( leukocytosis, tachycardia tachypnea)- Patient was started on hydration IV and blood cultures sent, UA- showed pyuria , urine culture was also sent, CT abdomen showed:distended and there is some stranding around the bladder: patient was started on IV ceftriaxone and in addition Shepherd was placed for urinary retention. With above supportive care patient seems to be improved significantly, TACHO improved, leukocytosis also improving, no fever. patient denies any new urinary symptoms, urine culture grew E coli sensitive to ceftriaxone, blood culture negative at 48 hours. Patient was seen by Urology for urinary retention and added Flomax, finasteride, recommended to keep folic and catheter for 4 weeks. patient will be going home with p.o. Ceftin for 12 more days. plan: complete ceftin 500 mg po bid for 12 days keep shepherd -further management outpatient per urology,continue flomax and f inestride. encouraged for hydration. moniter bmp outpatient. follow up with pcp. Above management discussed with the patient in detail length he understand and in agreement with the above plan, time spent 50 minutes and 50% time spent on counseling. Time Attestation Total time managing care of this patient today: 40 mintues. Discharge Coordination Time (in mins): 40 min Quality: Safe Use of Opioids Does Pt have an Active Cancer Diagnosis on the Problem List?: No Quality: Stroke Does the patient have a stroke diagnosis?: No Physical Exam Vital Signs: Vital Signs: Last Vital Signs Temp 98.4 F 01/12/24 07:04 Pulse 80 01/12/24 07:04 Resp 18 01/12/24 07:04 BP 140/78 H 01/12/24 07:04 Pulse Ox 95 01/12/24 07:04 O2 Del Method Room Air 01/12/24 07:04 BMI result Body Mass Index 33.9 Appearance: Alert.? Oriented X3.? not in distress. cvs: rrr, [id number] . res: clear to auscultation ,no rhonchii or wheezing abd: no rebound or guarding ,nt, bs present. ext pulses present , no cyanosis . neuro: axo3 , nonfocal. DS: Data Data Completed and Pending Labs on day of discharge: Laboratory Results - last 24 hr 01/11/24 11:56 WBC 18.2 H RBC 3.80 L Hgb 12.2 L Hct 35.6 L MCV 93.7 MCH 32.1 MCHC 34.3 RDW 12.4 Plt Count 119 L MPV 12.9 H Absolute Nucleated RBC 0.000 Nucleated RBC % (auto) 0.0 Sodium 137 Potassium 4.1 Chloride 108 Carbon Dioxide 21 L Anion Gap 12 BUN 14 Creatinine 1.14 Estim Creat Clear Calc 79.1 Estimated GFR > 60 Random Glucose 160 H Calcium 8.9 Preliminary micro results at discharge 01/10/24 05:08 Blood Culture - Preliminary Blood - Venous No growth after 48 hours. 01/10/24 05:11 Blood Culture - Preliminary Blood - Venous No growth after 48 hours. Imaging Chest x-ray: Radiologist's impression: ITS Impressions Abdomen/Pelvis CT 01/10/24 05:50 IMPRESSION: There are bilateral nonobstructing renal calculi. The bladder is distended and there is some stranding around the bladder. There is stranding around the prostate and seminal vesicles. This can be seen with infection or inflammation. There is no abscess demonstrated. Fleischner guidelines were followed. Discharge Plan Discharge Anticipated Discharge Date/Time: 01/12/24 07:55 Patient Disposition: Home Health Service Discharge Diagnosis: Sepsis secondary to UTI, urinary retention, TACHO. Referrals: Landon MINAYA [Outside] - 1 Week Kyler Payton MD [Physician] - 1 Week Sahara Hodges MD [Primary Care Provider] - 1 Week Discharge Medications: New tamsulosin 0.4 mg Capsule 0.4 mg PO BEDTIME Qty: 90 0RF omeprazole 20 mg Capsule,Delayed Release(Dr/Ec) 20 mg PO DAILY@0630 Qty: 30 0RF finasteride 5 mg Tablet 5 mg PO DAILY Qty: 90 0RF cefuroxime axetil 500 mg Tablet 500 mg PO Q12H Qty: 24 0RF Discontinued levofloxacin 500 mg tablet 500 mg PO DAILY 7 Days Qty: 7 0RF Rx Instructions: END DATE: 01/15/24 Discharge Orders: Discharge Order (Routine); Ordered 01/12/24 Ordered By: Mirela Keita Diet: Advance to usual diet Activity on Discharge: As tolerated Stand Alone Forms: Patient Portal Discharge page Print Language: Indonesian Other Ambulatory Orders: Basic Metabolic Panel (Routine) Timeframe: 1 Week Facility: [facility] - Location: Laboratory Ordered By: Mirela Keita Activity Restrictions/Additional Instructions: Shepherd catheter to remain 4 weeks Will be out use catheter cap after 24-36 hrs Switch to catheter cap usage Care Plan Goals: complete ceftin 500 mg po bid for 12 days keep shepherd -further management outpatient per urology,continue flomax and finestride. encouraged for hydration. moniter bmp outpatient. follow up with pcp. Health Concerns: as above. Plan of Treatment: as above. Assessment: as above. Patient Instructions: Shepherd Catheter Placement and Care (DC)
--- NOTE | 2024-01-15 06:59 | PC.NURSE ---
The fluids that were started on 01/09 at 0516 were infused at 0700 and this was also documented in real time on the sepsis alert nursing checklist
== END 2024-01-12 13:28 | disposition home health service (06) | DRG 872 ==
LOC: HO.ED 06:53 → HO.EDOVER 10:46 → HO.IMC 19:18
PROVIDERS: Emergency Medicine; Admitting Provider Internal Medicine; Emergency Provider Emergency Medicine; PCP Internal Medicine; Visit Provider Internal Medicine
DX: A41.9 Sepsis, unspecified organism (principal); N39.0 Urinary tract infection, site not specified; N17.9 Acute kidney failure, unspecified; F41.1 Generalized anxiety disorder; G47.33 Obstructive sleep apnea (adult) (pediatric); N18.30 Chronic kidney disease, stage 3 unspecified; R33.9 Retention of urine, unspecified; Z79.899 Other long term (current) drug therapy
CPT/HCPCS: 36415; 74176; 80048; 80076; 81001; 83605; 83690; 84145; 85007; 85027; 87040; 87086; 87088; 87186; 99285; C1758; J0696; J1650; J1956; J2270

== ENCOUNTER → 2024-01-10 10:40 | Outpatient (BNV) | payer MEDICARE, MEDICAID, SELFPAY | PROVIDERS: Admitting Provider Internal Medicine; Emergency Provider Emergency Medicine; PCP Internal Medicine; Visit Provider Urology | DX: N30.00 Acute cystitis without hematuria (principal); R33.9 Retention of urine, unspecified | CPT/HCPCS: 99222 ==

== ENCOUNTER → 2024-01-10 10:40 | Outpatient (BNV) | payer MEDICARE, MEDICAID, SELFPAY | PROVIDERS: Admitting Provider Internal Medicine; Emergency Provider Emergency Medicine; PCP Internal Medicine; Visit Provider Internal Medicine | DX: A41.9 Sepsis, unspecified organism (principal); N17.9 Acute kidney failure, unspecified; N30.00 Acute cystitis without hematuria | CPT/HCPCS: 99222; 99232; 99239; G0180 ==

== ENCOUNTER 2024-02-02 08:18 | Outpatient (AMB) | payer MEDICARE, MEDICAID, SELFPAY ==
--- NOTE | 2024-02-02 08:24 | MHC.OFFVIS ---
Intake Visit Reasons: voiding trial Intake Note: Patient is Present for Voiding Trial Urology Med: Tamsulosin, Finasteride Antibiotic Allergy: None Blood Thinner: None Last [place]VR: 341 [place] [facility] [place] catheter was placed in at ER visit Todays PVR: 19 Crystal Flat Grinder Required: No Allergies No Known Allergies [No Known Allergies*] Allergy (Verified 02/02/24 08:31) Medication List - Last Reconciled 02/02/24 by Kyler Payton MD cefuroxime axetil 500 mg PO Q12H finasteride 5 mg PO DAILY 90 days omeprazole 20 mg PO DAILY@629 tamsulosin 0.4 mg PO BEDTIME 90 days HPI Comments Details: Eliazar is a pleasant male. He is a patient of Dr. Arnett. He seen for the following urologic conditions - nephrolithiasis - lower urinary tract symptoms Recent ER admission with 340 cc Past voiding trial today On combination finasteride and tamsulosin 2 month follow-up cysto office Lower urinary tract symptoms December 2023 - urinary retention in ER 340 cc Nephrolithiasis Has had elevated PTH secondary to hyperparathyroidism. Has been under management for this Imaging 12/18 bilateral small renal stones Laboratories - 01/18 Ca 9.4, normal vitamin-D, normal PTH, Cr 1.0 - 24 Hr 12/19 good volume, low calcium, low oxalate, good citrate PFSH Medical History Hyperparathyroidism Total bilirubin, elevated LOR (generalized anxiety disorder) CKD (chronic kidney disease) Transaminitis Obese Anxiety associated with depression Mild major depression Impaired glucose tolerance ANA on CPAP Knee osteoarthritis Hypovitaminosis D Surgical History Hx of colonoscopy Family History Father Cancer Stroke Cirrhosis Mother Diabetes Social History Household Members: Spouse Housing: House Alcohol intake: never Patient Tobacco Use Status: Never used Tobacco e-Cigarette/Vaping Use: Never Used Second Hand Smoke Exposure: No service: No Current occupational status: disabled Cognitive needs: Yes Hearing needs: No Vision needs: Yes Review of Systems Const Denies chills and Denies fever(s) Card Reports no additional complaints and Denies syncope Resp Denies cough GI Denies abdominal pain and Denies heartburn Reports as per HPI and Denies change in libido Neuro Denies syncope Psych Denies change in libido Endo Denies change in libido Physical Exam Const General: cooperative, healthy appearing, comfortable and no acute distress Orientation/consciousness: patient oriented x3 HEENT Face and sinus: Yes normal facial exam Mouth: moist mucous membranes Neck Neck: Yes normal visual inspection, Yes full ROM and Yes trachea midline Chest Chest palpation & inspection: normal inspection of the chest Resp Effort & Inspection: normal respiratory effort, able to speak in complete sentences and no respiratory distress GI Inspection: Yes normal to inspection Back/Spine/Pelvis Cervical Spine: normal cervical lordosis Thoracic/Lumbar Spine: thoracic and lumbar spine normal to inspection Skin General skin exam: no rashes or lesions noted Neuro General: patient oriented x3, gait normal, tone normal and moves all extremities Extrem General: Yes normal to inspection and Yes capillary refill normal Office Procedures Bladder/Catheter Procedure Details: Patient presents to office for voiding trial s/p hospitalization and consult with urology. 120 mls sterile water instilled through catheter. Removal of 16fr catheter, patient tolerated well. MA to room for bladder scan. [id number] of Bladder Procedure code (CPT) selection complete Post Void Residual Post Residual Void Post Void Residual (PVR): 19 [id number]-Cwee Void Residual by ultrasound Assessment & Plan Assessment & Plan (1) Urinary retention: Code(s): R33.9 - Retention of urine, unspecified Category: Medical Plan Bladder ultrasound Office cystoscopy Orders: Orders AMB Post Void Residual by ultrasound Today R33.9 - Retention of urine, unspecified AMB Bladder/Catheter Procedure Today R31.9 - Hematuria, unspecified, R33.9 - Retention of urine, unspecified US bladder 2 Months R33.9 - Retention of urine, unspecified Patient Instructions: Imaging studies, laboratory and physical exam results were discussed and reviewed in detail. No major barriers to patient understanding were identified. An opportunity to ask questions regarding the treatment plan was provided. All questions were answered. The patient expressed understanding and agreement with the above treatment plan. The patient is aware they should contact our office by phone for worsening of their current condition or the appearance of new urologic symptoms. Compliance is encouraged with any medications and followup testing that is ordered. It is a privilege to participate in the urologic care of your patient. If you have any questions or concerns regarding treatment for the above conditions, or other urologic issues, please do not hesitate to contact me. The office telephone contact is [phone]. This note is constructed using voice recognition software. While every effort has been made to ensure accuracy vault maker errors may have been included. Yours sincerely, Dr Kyler Payton MD, [facility] - Urology Providers of Expert, Compassionate Care for the Genitourinary System Coding Level of Care Code Est Pt Level 4 (73766) Diagnoses Urinary retention R33.9 CPT Codes Bladder/Catheter Procedure - CPT: 97316-Ggpcplxqkf of Bladder ([id number]) Post Residual Void - PVR CPT Code: 60294-Zwqi Void Residual by ultrasound ([id number])
== END 2024-02-02 09:07 | disposition home or self-care (01) ==
PROVIDERS: PCP Internal Medicine; Visit Provider Urology
DX: R33.9 Retention of urine, unspecified (principal)
CPT/HCPCS: 51700; 99214

== ENCOUNTER → 2024-02-02 08:18 | Outpatient (BNVA) | payer MEDICARE, OTHER, SELFPAY | PROVIDERS: PCP Internal Medicine; Visit Provider Urology | DX: R33.9 Retention of urine, unspecified (principal) | CPT/HCPCS: 51700; 51798; 99212 ==

== ENCOUNTER 2024-03-14 06:40 | Outpatient (REF) | payer MEDICARE, MEDICAID, SELFPAY ==
[2024-03-14 09:00] LABS: Basophils Percent Auto 0.6 % (0-2); Eosinophils Absolute Auto 0.3 X10*3/uL (0.0-0.4); Eosinophils Percent Auto 3.7 % (0-4); Hematocrit 40.1 % (42.0-52.0); Hemoglobin 13.1 g/dl (14.0-18.0); Imm Gran Abs Auto 0.01 X10*3/uL (0.00-0.03); Imm Gran Pct Auto 0.1 % (0.0-0.4); Lymphocytes Absolute Auto 1.5 X10*3/uL (1.2-4.9); Lymphocytes Percent Auto 21.8 % (20-40); MANUAL DIFF FLAG NO; Mean Corpuscular HGB Conc 32.7 g/dl (31.0-36.0); Mean Corpuscular Hemoglobin 31.5 pg (27.0-33.0); Mean Corpuscular Volume 96.4 fL (80.0-98.0); Mean Platelet Volume 12.8 fL (9.4-12.4); Monocytes Absolute Auto 0.8 X10*3/uL (0.1-1.2); Monocytes Percent Auto 11.2 % (2-11); Neutrophils Absolute Auto 4.4 x10*3/uL (2.0-8.3); Neutrophils Percent Auto 62.6 % (45-73); Platelet Count 148 X10*3/uL (160-400); Red Blood Count 4.16 X10*6/uL (4.60-5.80); Red Cell Distribution Width 12.3 % (11.0-16.0)
[2024-03-14 09:37] LABS: Alanine Aminotransferase 19 U/L (0-40); Albumin Level 3.8 g/dL (3.5-5.0); Alkaline Phosphatase 100 U/L (39-117); Anion Gap 11 (12-20); Aspartate Amino Transferase 19 U/L (5-37); Bilirubin Total 0.7 mg/dL (0.0-1.0); Blood Urea Nitrogen 9 mg/dL (9-16); Calcium 9.1 mg/dL (8.4-10.2); Carbon Dioxide 24 mmol/L (22-29); Chloride 109 mmol/L (96-108); Cholesterol 144 mg/dL (<200); Estimated Glomerular Filt Rate > 60; Glucose Fasting 110 mg/dL (60-99); HDL Cholesterol 35 mg/dL (>40); LDL Cholesterol Calculated 94 mg/dL (<100); Potassium 4.2 mmol/L (3.3-5.1); Sodium 140 mmol/L (135-145); Total Protein 6.9 g/dL (6.5-8.0); Triglycerides 77 mg/dL (<150)
[2024-03-14 10:38] LABS: Appearance Urine Clear; Color Urine Yellow; Glucose Urine UA Negative (Negative); Leukocyte Esterase Urine Trace (Negative); Nitrite Urine Negative (Negative); PH 6.5 (5.0-9.0); UMIC TRIGGER UACC YES; Urine Blood Negative (Negative); Urine Ketones Negative (Negative); Urine Protein Negative (Neg-Trace)
[2024-03-14 11:24] LABS: RBC Urine 0-2 /HPF (0-2); WBC Urine 0-5 /HPF (0-5)
[2024-03-14 11:25] LABS: Bacteria Urine None Seen (None Seen); Hyaline Casts Urine 0-2 /LPF (0-2); Squamous Epithelial Cell Urine 0-2 /HPF (0-2)
== END 2024-03-14 06:41 | disposition home or self-care (01) ==
LOC: HO.LAB 06:40
PROVIDERS: Absent Provider Internal Medicine Hypertension Specialist; PCP Internal Medicine; Visit Provider Internal Medicine
DX: R68.83 Chills (without fever) (principal); R73.02 Impaired glucose tolerance (oral); R31.9 Hematuria, unspecified
CPT/HCPCS: 36415; 80053; 80061; 81001; 81003; 85025; 87086; 87088; 87186

== ENCOUNTER → 2024-03-19 16:09 | Outpatient (BNVA) | payer MEDICARE, MEDICAID, SELFPAY | PROVIDERS: PCP Internal Medicine; Visit Provider Internal Medicine Hypertension Specialist | DX: N17.9 Acute kidney failure, unspecified (principal); N20.0 Calculus of kidney | CPT/HCPCS: 99212 ==

== ENCOUNTER 2024-03-19 16:28 | Outpatient (AMB) | payer MEDICARE, MEDICAID, SELFPAY ==
[2024-03-19 16:11] VITALS: BP 120/62; PULSE 77; O2SAT 96; BMI 33.9
--- NOTE | 2024-03-19 16:11 | HO.NEPHOV_ITS ---
Vital Signs 03/19/24 16:11 Height 5 ft 10 in Weight 236 lb BMI 33.9 BP 120/62 Blood Pressure Location Rt brachial Position Sitting Pulse 77 Pulse Source Pulse Oximeter Pulse Oximetry (%) 96 Oxygen Delivery Method Room Air Intake Visit Reasons: Previous patient/LVM Public Speaking Coach Required: No Accompanied by: Son In Law Allergies No Known Allergies [No Known Allergies*] Allergy (Verified 03/19/24 16:15) HPI Comments Details: Middle-aged man with nephrolithiasis. Recently hospitalized for urinary retention. He had Palacios for 4 weeks. He has a follow up ultrasound and urology appointment. He is under the episode of UTI with Citrobacter and currently on Bactrim Accompanied by his [facility] Medical History Hyperparathyroidism Total bilirubin, elevated LOR (generalized anxiety disorder) CKD (chronic kidney disease) Transaminitis Obese Anxiety associated with depression Mild major depression Impaired glucose tolerance ANA on CPAP Knee osteoarthritis Hypovitaminosis D Surgical History Hx of colonoscopy Family History Father Cancer Stroke Cirrhosis Mother Diabetes Social History Household Members: Spouse Housing: House Alcohol intake: never Patient Tobacco Use Status: Never used Tobacco e-Cigarette/Vaping Use: Never Used Second Hand Smoke Exposure: No service: No Current occupational status: disabled Cognitive needs: Yes Hearing needs: No Vision needs: Yes Physical Exam Vital Signs: Last Vital Signs Pulse 77 03/19/24 16:11 BP 120/62 03/19/24 16:11 Pulse Ox 96 03/19/24 16:11 Oxygen Delivery Method Room Air 03/19/24 16:11 BMI result Body Mass Index 33.9 Neck Neck: Yes supple Resp Auscultation: clear to auscultation bilaterally Cardio Palpation: no palpable S3 Heart sounds: no rubs GI Palpation (GI): Soft to palpation Auscultation: normal bowel sounds Neuro Motor exam (neuro): no asterixis Results Reviewed Nephrology Results: Hgb 13.1 g/dl (14.0-18.0) L 03/14/24 WBC 7.0 X10*3/uL (4.8-10.8) 03/14/24 Plt Count 148 X10*3/uL (160-400) L 03/14/24 Sodium 140 mmol/L (135-145) 03/14/24 Potassium 4.2 mmol/L (3.3-5.1) 03/14/24 Chloride 109 mmol/L (96-108) H 03/14/24 Carbon Dioxide 24 mmol/L (22-29) 03/14/24 BUN 9 mg/dL (9-16) 03/14/24 Creatinine 0.95 mg/dL (0.5-1.4) 03/14/24 Calcium 9.1 mg/dL (8.4-10.2) 03/14/24 Urine Protein Negative mg/dL (Neg-Trace) 03/14/24 Assessment & Plan Assessment & Plan (1) TACHO (acute kidney injury): Code(s): N17.9 - Acute kidney failure, unspecified Category: Medical Plan: TACHO in the past due to urinary retention has resolved. Renal function is back to baseline recent creatinine 0.9. (2) Renal calculi: Code(s): N20.0 - Calculus of kidney Category: Medical Plan: Multiple renal calculi in recent imaging. No obstruction Encouraged to stay on low-sodium diet Increase p.o. fluid intake to maintain a urine output of 2 L. Increase citrate intake Coding Level of Care Code Est Pt Level 3 (11838) Diagnoses TACHO (acute kidney injury) N17.9 Renal calculi N20.0
== END 2024-03-19 16:31 | disposition home or self-care (01) ==
PROVIDERS: PCP Internal Medicine; Visit Provider Internal Medicine Hypertension Specialist
DX: N17.9 Acute kidney failure, unspecified (principal); N20.0 Calculus of kidney
CPT/HCPCS: 99213

== ENCOUNTER 2024-03-26 10:42 | Outpatient (REF) | payer MEDICARE, MEDICAID, SELFPAY ==
--- NOTE | ~2024-03-26 | US_ITS ---
EXAMINATION: US PELVIS LIMITED (BLADDER) CLINICAL INFORMATION: Retention of urine, unspecified. COMPARISON: CT abdomen and pelvis 01/10/2024. Ultrasound kidneys and bladder 12/18/2021. TECHNIQUE: Real-time imaging of the bladder. FINDINGS: BLADDER: Partially distended, limiting evaluation. Mild diffuse irregularity and possible borderline thickening of the bladder wall are difficult to evaluate due to suboptimal distention. Bilateral ureteral jets are demonstrated. Prevoid bladder volume is 238 mL. Postvoid bladder volume is 28.2 mL. Enlarged prostate, volume 29.2 mL. US/US bladder IMPRESSION: 1. Mild diffuse irregularity and possible borderline thickening of the bladder wall are difficult to evaluate due to suboptimal distention. 2. Enlarged prostate, volume 29.2 mL. This study was presented today April 03, 2024 for interpretation. Stat results provided at this time as requested by referring provider. 1.
== END 2024-03-26 10:43 | disposition home or self-care (01) ==
LOC: HO.US 10:42
PROVIDERS: PCP Internal Medicine; Visit Provider Urology
DX: R33.9 Retention of urine, unspecified (principal)
CPT/HCPCS: 76857

== ENCOUNTER 2024-04-03 08:17 | Outpatient (AMB) | payer MEDICARE, MEDICAID, SELFPAY ==
--- NOTE | 2024-04-03 08:19 | AM.OFFVISMDC ---
Intake Vital Signs 04/03/24 08:21 Height 5 ft 10 in Weight 237 lb BMI 34.0 BP 126/80 Blood Pressure Location Lt brachial Position Sitting Intake Visit Reasons: pe Intake Note: Patient here for a subsequent annual wellness visit Assistant News Director Required: No Accompanied by: Spouse Allergies No Known Allergies [No Known Allergies*] Allergy (Verified 04/03/24 08:36) Medication List - Last Reconciled 04/03/24 by Sahara Arnett MD celecoxib 200 mg PO BID PRN omeprazole 20 mg PO DAILY@629 PRN tamsulosin 0.4 mg PO BEDTIME 90 days HPI HPI Comments History of Present Illness Details This is a 63-year-old male with mild major depression in remission that comes for his Medicare wellness exam. Colonoscopy done 2015 and next colonoscopy should be 2025. Walks with a cane for gait stability. PPP handed to patient. [facility] Medical History (Updated 04/03/24 @ 09:11 by Sahaar Arnett MD) Mild major depression TACHO (acute kidney injury) Sepsis Hyperparathyroidism Total bilirubin, elevated LOR (generalized anxiety disorder) CKD (chronic kidney disease) Transaminitis Obese Anxiety associated with depression Impaired glucose tolerance ANA on CPAP Knee osteoarthritis Hypovitaminosis D Surgical History Hx of colonoscopy Family History Father Cancer Stroke Cirrhosis Mother Diabetes Social History Household Members: Spouse Housing: House Alcohol intake: never Patient Tobacco Use Status: Never used Tobacco e-Cigarette/Vaping Use: Never Used Second Hand Smoke Exposure: No service: No Current occupational status: disabled Cognitive needs: Yes Hearing needs: No Vision needs: Yes Questionnaire Medicare Wellness Checkup [age] What gender do you identify with?: male During the past 4 weeks, has your physical & emotional health limited your social activities with family, friends, neighbors, or groups?: not at all During the past 4 weeks, how much bodily pain have you generally had?: very mild pain During the past 4 weeks, was someone available to help you if you needed & wanted help?: yes, quite a bit During the past 4 weeks, what was the hardest physical activity you could do for at least 2 minutes?: light Can you get to places out of walking distance without help? (For eg., can you travel alone on buses, taxis or drive your car?): No Can you go shopping for groceries or clothes without someone's help?: No Can you prepare your own meals?: Yes Can you do your housework without help?: Yes Because of any health problems, do you need the help of another person with your personal care needs such as eating, bathing, dressing or getting around the house?: No Can you handle your own money without help?: No During the past 4 weeks, how would you rate your health in general?: good During the past 4 weeks how have things been going for you?: good & bad parts about equal Are you having difficulties driving your car?: not applicable, I don't use a car Do you always fasten your seat belt when you are in a car?: yes, usually During past 4 weeks, have you been bothered by the following: never: Falling or dizzy when standing up, Sexual problems?, Trouble eating well?, Teeth or denture problems?, Problems using the telephone? and Tiredness or fatigue? Have you fallen 2 or more times in the past year?: No Are you afraid of falling?: Yes Are you a smoker?: no During the past 4 weeks, how many drinks of wine, beer, or other alcoholic beverages did you have?: no alcohol at all Do you exercise for about 20 minutes 3 or more times a week?: yes, some of the time Have you been given information to help with the following?: no: Hazards in your house that might hurt you? and no: Keeping track of your medications? How often do you have trouble taking medicines the way you have been told to take them?: I always take medicine as prescribed How confident are you that you can control & manage most of your health problems?: somewhat confident What is your race?: or origin or descent Mini Mental State Exam (MMSE) Orientation What is the (year) (season) (date) (day) (month)?: year, season, date, day and month Where are we (state) (county) (town or city) (hospital) (floor)?: state, county, town or city, hospital/clinic and floor Registration Name of 3 unrelated objects clearly and slowly, then ask patient to repeat all 3 of them. (1st repeat determines score. Make sure they can repeat all three): object 1, object 2 and object 3 Attention & Calculation (CHOOSE ONE) Spell WORLD backwards (DLROW): 5 letters Recall Ask patient to repeat the 3 items from question #3.: object 1 and object 2 Language Show patient a wristwatch & ask what it is. Repeat for pencil.: watch and pencil Ask the patient to repeat the phrase 'No ifs, ands, or buts' after you.: correct Ask the patient to 'take a piece of paper with their right hand' 'fold paper in half' 'place paper on floor': take paper in right hand, fold paper in half and place paper on floor Print the sentence 'CLOSE YOUR EYES' on a piece. If patient actually closes eyes then score.: followed written direction Give patient a blank piece of paper & ask to write a sentence. Score if it contains a noun & verb.: sentence contains subject and verb Ask patient to copy figure of intersecting pentagons exactly. Score if all 10 angles & 2 intersects are included.: all 10 angles present & 2 are intersected Score Score: 29 Activity of Daily Living Bathing - sponge bath, tub bath or shower: receives no assistance (gets in/out by self, if usual bathing means Dressing - getting clothes from closets & drawers, including inner/outer garments & fasteners.: gets clothes & gets completely dressed without help Toileting - going to the 'toilet room' for urine/bowel elimination & cleaning self/arranging clothes: goes to toilet room, cleans self, arranges clothes without help Transfer: moves in & out of bed and chair without help (may use support object) Continence: controls urination/bowel movements completely by self Feeding: feeds self without help Total Score: 0 Information obtained from: patient Using telephone: independent Traveling: independent Shopping: needs assistance Preparing meals: needs assistance Housework: needs assistance Taking medicine: independent Managing money: needs assistance PHQ-9 Over the last 2 weeks, how often have you been bothered by any of the following problems? 1. Little interest or pleasure in doing things: not at all 2. Feeling down, depressed, or hopeless: not at all 3. Trouble falling or staying asleep, or sleeping too much: more than half the days 4. Feeling tired or having little energy: more than half the days 5. Poor appetite or overeating: not at all 6. Feeling bad about yourself - or that you are a failure or have let yourself or your family down: not at all 7. Trouble concentrating on things, such as reading the newspaper or watching television: not at all 8. Moving or speaking so slowly that other people could have noticed. Or the opposite - being so fidgety or restless that you have been moving around a lot more than usual: not at all 9. Thoughts that you would be better off or of hurting yourself in some way: not at all Total score: 4 Depression Screening Interpretation: Positive Depression Screening Follow-up: Existing condition and Follow-up Visit Requested Depression Screening Done: Yes 82980 - PHQ-9 Billing: Yes Source: Developed by Drs. Desean Chang, Nato Mccormick and colleagues, with an educational lalitha from [employer]. LOR-7 AMB Questionnaire OLR-7 Date LOR - 7 assessed: 04/03/24 Feeling nervous, anxious, or on edge: 0 = Not at all Not being able to stop or control worryin = Not at all Worrying too much about different things: 0 = Not at all Trouble relaxin = Not at all Being so restless that it is hard to sit still: 0 = Not at all Becoming easily annoyed or irritable: 0 = Not at all Feeling afraid as if something awful might happen: 0 = Not at all Total LOR-7 score (0-4 normal; 5-9 mild; 10-14 moderate; 15-21 severe): 0 Source: Developed by Drs. Desean Chang, Nato Mccormick and colleagues, with an educational lalitha from [employer]. LOR-7 Assessment Billing LOR-7 Assessment Tool: LOR-7 Assessment 97769 Fall Risk Assessment Fall Risk Assessment Fall risk assessment: No Falls in past year Thrive Questionnaire Date Thrive assessed: 04/03/24 I am a: Patient What is your living situation today?: I have a steady place to live Within the past 12 months, did the food you bought not last and you didn't have the money to get more?: Never true Within the past 12 months, did you worry whether your food would run out before you got money to buy more?: Never true Do you have trouble paying for medicines?: No Do you have trouble getting transportation to medical appointments?: No Do you have trouble paying your heating and electricity bill?: No Do you have trouble taking care of your child, family member or friend?: No Do you have trouble with day-to-day activities such as bathing, preparing meals, shopping, managing finances, etc.?: No Are you currently unemployed and looking for a job?: No Are you interested in more education?: No Please select the resources that you would like help with: None Currently or been in a relationship where the following occur: No concerns reported THRIVE Score: 0 AUDIT C Alcohol Use Questionnaire (AUDIT-C) 1. How often do you have a drink containing alcohol?: Never Total Score: 0 Score Reviewed/Action Taken: No Review of Systems Const All systems reviewed & are unremarkable except as noted in HPI and below Card Denies chest pain at rest, Denies chest pain with activity, Denies edema, Denies irregular heart rhythm, Denies claudication, Denies dyspnea, Denies dyspnea on exertion, Denies orthopnea, Denies paroxysmal nocturnal dyspnea and Denies slow heart rate Resp Denies cough, Denies dyspnea and Denies dyspnea on exertion GI Denies abdominal pain, Denies change in bowel habits, Denies excessive flatus, Denies nausea and Denies vomiting Denies urinary hesitancy, Denies urinary incontinence and Denies urinary urgency Musc Denies abnormal gait, Denies atrophy, Denies deformity and Denies limited range of motion Neuro Denies abnormal gait, Denies behavioral changes, Denies confusion and Denies lack of coordination Psych Denies behavioral changes and Denies confusion Physical Exam Vital Signs: Last Vital Signs BP 126/80 04/03/24 08:21 BMI result Body Mass Index 34.0 Const General: cooperative; No confusion Orientation/consciousness: patient oriented x3 and No confusion Limitations: ambulation with cane Resp Effort & Inspection: normal respiratory effort Auscultation: clear to auscultation bilaterally Cardio Jugular venous distension: no JVD Rate: regular rate Rhythm: regular rhythm Heart sounds: S1 normal heart sound present and S2 normal heart sound present Neuro General: patient oriented x3, no focal motor deficits and No confusion Romberg Test: Negative Extrem General: Yes full ROM Psych Appearance: grossly normal Assessment & Plan Assessment & Plan (1) Encounter for Medicare annual wellness exam: Code(s): Z00.00 - Encounter for general adult medical examination without abnormal findings Plan: Repeat in a year. (2) Mild major depression: Code(s): F32.0 - Major depressive disorder, single episode, mild Plan: Follow-up visit requested. In remission. Quality Reporting (2019) Fall Risk Screening ([facility] 139) Fall risk assessment: No Falls in past year Depression/Bipolar (159/160/161/177) PHQ-9: Total score: 4 Coding Level of Care Code Medicare First (G0438) Diagnoses Encounter for Medicare annual wellness exam Z00.00 Mild major depression F32.0 CPT Codes Advance Care Planning - Time spent: 1-15 minutes, on File ([id number]) Additional Codes LOR-7 Assessment Billing - LOR-7 Assessment Tool: LOR-7 Assessment 13945 ([id number]) Time Spent (min) 32 Advance Care Planning Advance Care Planning discussion: Exists, not on file Date of discussion: 04/03/24 Who was present: patient, and me Forms completed: Health Care Proxy Time spent: 1-15 minutes, on File Actual minutes spent: 2
[2024-04-03 08:21] VITALS: BP 126/80; BMI 34.0
== END 2024-04-03 09:10 | disposition home or self-care (01) ==
PROVIDERS: PCP Internal Medicine; Visit Provider Internal Medicine
DX: Z00.00 Encounter for general adult medical examination without abnormal findings (principal); F32.0 Major depressive disorder, single episode, mild; N18.31 Chronic kidney disease, stage 3a
CPT/HCPCS: 1123F; G0438

== ENCOUNTER 2024-04-10 14:49 | Outpatient (AMB) | payer MEDICARE, MEDICAID, SELFPAY ==
--- NOTE | 2024-04-10 15:04 | A.OFFVIS_ITS ---
Intake Visit Reasons: cysto/US(SET) Intake Note: Patient presents to the office today for a cysto/US Urology Med: Tamsulosin Antibiotic Allergy: None Blood Thinner: None Cystoscope: Lot: [id number] Exp: 10/13/26 Staff Counsel Required: No Allergies No Known Allergies [No Known Allergies*] Allergy (Verified 04/10/24 15:06) HPI Comments Details: Eliazar is a pleasant male. He is a patient of Dr. Arnett. He seen for the following urologic conditions - nephrolithiasis - lower urinary tract symptoms Two month follow-up cysto Open bladder neck Continue current therapy Six-month follow-up Lower urinary tract symptoms Had been on combination finasteride and tamsulosin for combination storage and voiding symptoms Reporting overactive bladder symptomatology Nephrolithiasis Has had elevated PTH secondary to hyperparathyroidism. Has been under management for this Imaging 12/18 bilateral small renal stones Laboratories - 01/18 Ca 9.4, normal vitamin-D, normal PTH, Cr 1.0 - 24 Hr 12/19 good volume, low calcium, low oxalate, good citrate PFSH Medical History Mild major depression TACHO (acute kidney injury) Sepsis Hyperparathyroidism Total bilirubin, elevated LOR (generalized anxiety disorder) CKD (chronic kidney disease) Transaminitis Obese Anxiety associated with depression Impaired glucose tolerance ANA on CPAP Knee osteoarthritis Hypovitaminosis D Surgical History Hx of colonoscopy Family History Father Cancer Stroke Cirrhosis Mother Diabetes Social History Household Members: Spouse Housing: House Alcohol intake: never Patient Tobacco Use Status: Never used Tobacco e-Cigarette/Vaping Use: Never Used Second Hand Smoke Exposure: No service: No Current occupational status: disabled Cognitive needs: Yes Hearing needs: No Vision needs: Yes Review of Systems Const Denies chills and Denies fever(s) Card Reports no additional complaints and Denies syncope Resp Denies cough GI Denies abdominal pain and Denies heartburn Reports as per HPI and Denies change in libido Neuro Denies syncope Psych Denies change in libido Endo Denies change in libido Physical Exam Const General: cooperative, healthy appearing, comfortable and no acute distress Orientation/consciousness: patient oriented x3 HEENT Face and sinus: Yes normal facial exam Mouth: moist mucous membranes Neck Neck: Yes normal visual inspection, Yes full ROM and Yes trachea midline Chest Chest palpation & inspection: normal inspection of the chest Resp Effort & Inspection: normal respiratory effort, able to speak in complete sentences and no respiratory distress GI Inspection: Yes normal to inspection Back/Spine/Pelvis Cervical Spine: normal cervical lordosis Thoracic/Lumbar Spine: thoracic and lumbar spine normal to inspection Skin General skin exam: no rashes or lesions noted Neuro General: patient oriented x3, gait normal, tone normal and moves all extremities Extrem General: Yes normal to inspection and Yes capillary refill normal Office Procedures Cystoscopy Consent Discussed risk and benefit or proposed procedure with the patient. Information consent for procedure given to the patient. Discussed technical aspects, risks, benefits and alternatives in full. Addressed all of the patient's questions and concerns regarding the procedure. The patient demonstrated knowledge and understanding. They wish to proceed with this procedure. Preparation The patient was prepped in the usual manner. A regional administrative assistant was present and in the room. Genitalia was prepped with betadine solution in a sterile manner. Lidocaine Jelly 2% was placed into the urethra and 16Fr flexible Olympus cystoscope was inserted into the meatus after adequate lubrication. Procedure Cystoscopy performed using a disposable Urovue digital 16 English cystoscope. Meatus normal position Urethra anterior and posterior urethra normal Prostatic Urethra open bladder neck Bladder examination with retroflexion of cystoscope Bladder Orifices normal shape and position Bladder Capacity median Trabeculations grade 2 Cellule Formation - Diverticulum Formation - Mucosal Erythema - Bladder Tumor - 24348-Lmoziliftd DISPOSABLE SCOPE URO-G FLEXIBLE SCOPE Procedure code (CPT) selection complete Office Meds lidocaine HCl 2 % mucosal jelly in applicator Performing Provider: Kyler Payton MD Performing Location: [facility] Administered by: Howard Araujo RN on 04/10/24 15:36 Dose Route Admin Location Dispensed Lot Number Expiration Date [facility] Patient Observation Assistant 10 mL intra-urethral 10 mL nitrofurantoin monohydrate/macrocrystals 100 mg capsule Performing Provider: Kyler Payton MD Performing Location: [facility] Administered by: Howard Araujo RN on 04/10/24 15:36 Dose Route Admin Location Dispensed Lot Number Expiration Date NDC Patient Observation Assistant 100 mg PO 1 cap naproxen 500 mg tablet Performing Provider: Kyler Payton MD Performing Location: [facility] Administered by: Howard Araujo RN on 04/10/24 15:36 Dose Route Admin Location Dispensed Lot Number Expiration Date NDC Patient Observation Assistant 500 mg PO 1 tab Results AMB Urinalysis, Automated UA Leukoctes 15 Luis/uL Last Edit by Radha Kim CMA on 04/10/24 15:12 UA Nitrite Negative Last Edit by Radha Kim CMA on 04/10/24 15:12 UA Urobilinogen 0.2 mg/dL Last Edit by Radha Kim CMA on 04/10/24 15:12 UA Protein 30 mg/dL Last Edit by Radha Kim CMA on 04/10/24 15:12 UA pH 6.0 Last Edit by Radha Kim CMA on 04/10/24 15:12 UA Blood 80 Guido/uL Last Edit by Radha Kim CMA on 04/10/24 15:12 UA Specific [place] 1.020 Last Edit by Radha Kim CMA on 04/10/24 15:12 UA Ketone Positive Last Edit by Radha Kim CMA on 04/10/24 15:12 UA Bilirubin 0 mg/dL Last Edit by Radha Kim CMA on 04/10/24 15:12 UA Glucose 0 mg/dL Last Edit by Radha Kim CMA on 04/10/24 15:12 Results Reviewed Results Reviewed: Laboratory Last Values Urine pH (Auto) 6.0 04/10/24 15:11 Specific [place] (Auto) 1.020 04/10/24 15:11 Urine Protein (Auto) 30 mg/dL 04/10/24 15:11 Glucose (UA)(Auto) 0 mg/dL 04/10/24 15:11 Urine Ketones (Auto) Positive 04/10/24 15:11 Urine Blood (Auto) 80 Guido/uL 04/10/24 15:11 Urine Nitrite (Auto) Negative 04/10/24 15:11 Urine Bilirubin (Auto) 0 mg/dL 04/10/24 15:11 Urine Urobilinogen (Auto) 0.2 mg/dL 04/10/24 15:11 Leukocyte Esterase (Auto) 15 Luis/uL 08/13/24 15:11 Assessment & Plan Assessment & Plan (1) Urinary retention: Code(s): R33.9 - Retention of urine, unspecified Category: Medical (2) Urinary urgency: Code(s): R39.15 - Urgency of urination Category: Medical Plan Six-month follow-up office Orders: Orders AMB Urinalysis Automated 04/10/24 R31.9 - Hematuria, unspecified Urine Cytology 04/10/24 R31.9 - Hematuria, unspecified AMB Cystoscopy 04/10/24 R33.9 - Retention of urine, unspecified Medications: New oxybutynin chloride ER 5 mg PO DAILY 30 tabs 1RF 30 days R39.15 - Urgency of urination Patient Instructions: Imaging studies, laboratory and physical exam results were discussed and reviewed in detail. No major barriers to patient understanding were identified. An opportunity to ask questions regarding the treatment plan was provided. All questions were answered. The patient expressed understanding and agreement with the above treatment plan. The patient is aware they should contact our office by phone for worsening of their current condition or the appearance of new urologic symptoms. Compliance is encouraged with any medications and followup testing that is ordered. It is a privilege to participate in the urologic care of your patient. If you have any questions or concerns regarding treatment for the above conditions, or other urologic issues, please do not hesitate to contact me. The office telephone contact is [phone]. This note is constructed using voice recognition software. While every effort has been made to ensure accuracy veneer lathe operator errors may have been included. Yours sincerely, Dr Kyler Payton MD, [facility] - Urology Providers of Expert, Compassionate Care for the Genitourinary System Coding Level of Care Code Est Pt Level 3 (86891) Diagnoses Urinary retention R33.9 Urinary urgency R39.15 CPT Codes Cystoscopy - CPT: 10165-Mrnqokvpov ([id number])
== END 2024-04-10 16:23 | disposition home or self-care (01) ==
PROVIDERS: PCP Internal Medicine; Visit Provider Urology
DX: R33.9 Retention of urine, unspecified (principal); R39.15 Urgency of urination
CPT/HCPCS: 52000; 99213

== ENCOUNTER 2024-04-10 14:49 | Outpatient (REF) | payer MEDICARE, MEDICAID, SELFPAY ==
[2024-04-10 17:05] LABS: Urine Cytology See Pathology rpt
== END 2024-04-10 14:50 | disposition home or self-care (01) ==
LOC: HO.LAB 14:49
PROVIDERS: PCP Internal Medicine; Visit Provider Urology
DX: R31.9 Hematuria, unspecified (principal)
CPT/HCPCS: 52000; 81003; 88112; 99212

== ENCOUNTER 2024-06-08 14:42 | Outpatient (AMB) | payer MEDICARE, MEDICAID, SELFPAY ==
--- NOTE | 2024-06-08 15:22 | MHC.OFFVIS ---
Intake Visit Reasons: 2m/PVR Intake Note: Patient is Present for PVR/ Urology Med: Tamsulosin, Oxybutynin Antibiotic Allergy: None Blood Thinner: None Last PVR: 19ml Todays PVR: 34ml Allergies No Known Allergies [No Known Allergies*] Allergy (Verified 04/10/24 15:06) HPI Comments Details: Eliazar is a pleasant male. He is a patient of Dr. Arnett. He seen for the following urologic conditions - nephrolithiasis - lower urinary tract symptoms Remains on combination therapy with oxybutynin and tamsulosin PVR today 20 cc Continues with good effect from medications Recent ER admission with 340 cc Past voiding trial today Lower urinary tract symptoms December 2023 - urinary retention in ER 340 cc Six-month follow-up Nephrolithiasis Has had elevated PTH secondary to hyperparathyroidism. Has been under management for this Imaging 12/18 bilateral small renal stones Laboratories - 01/18 Ca 9.4, normal vitamin-D, normal PTH, Cr 1.0 - 24 Hr 12/19 good volume, low calcium, low oxalate, good citrate PFSH Medical History Mild major depression TACHO (acute kidney injury) Sepsis Hyperparathyroidism Total bilirubin, elevated LOR (generalized anxiety disorder) CKD (chronic kidney disease) Transaminitis Obese Anxiety associated with depression Impaired glucose tolerance ANA on CPAP Knee osteoarthritis Hypovitaminosis D Surgical History Hx of colonoscopy Family History Father Cancer Stroke Cirrhosis Mother Diabetes Social History Household Members: Spouse Housing: House Alcohol intake: never Patient Tobacco Use Status: Never used Tobacco e-Cigarette/Vaping Use: Never Used Second Hand Smoke Exposure: No service: No Current occupational status: disabled Cognitive needs: Yes Hearing needs: No Vision needs: Yes Review of Systems Const Denies chills and Denies fever(s) Card Reports no additional complaints and Denies syncope Resp Denies cough GI Denies abdominal pain and Denies heartburn Reports as per HPI and Denies change in libido Neuro Denies syncope Psych Denies change in libido Endo Denies change in libido Physical Exam Const General: cooperative, healthy appearing, comfortable and no acute distress Orientation/consciousness: patient oriented x3 HEENT Face and sinus: Yes normal facial exam Mouth: moist mucous membranes Neck Neck: Yes normal visual inspection, Yes full ROM and Yes trachea midline Chest Chest palpation & inspection: normal inspection of the chest Resp Effort & Inspection: normal respiratory effort, able to speak in complete sentences and no respiratory distress GI Inspection: Yes normal to inspection Back/Spine/Pelvis Cervical Spine: normal cervical lordosis Thoracic/Lumbar Spine: thoracic and lumbar spine normal to inspection Skin General skin exam: no rashes or lesions noted Neuro General: patient oriented x3, gait normal, tone normal and moves all extremities Extrem General: Yes normal to inspection and Yes capillary refill normal Office Procedures Post Void Residual Post Residual Void Post Void Residual (PVR): 34 [id number] Void Residual by ultrasound Assessment & Plan Assessment & Plan (1) Renal calculi: Code(s): N20.0 - Calculus of kidney Category: Medical (2) Kidney lesion: Code(s): N28.9 - Disorder of kidney and ureter, unspecified Category: Medical (3) Urinary retention: Code(s): R33.9 - Retention of urine, unspecified Category: Medical Plan Six-month follow-up Orders: Orders AMB Post Void Residual by ultrasound 06/08/24 R33.9 - Retention of urine, unspecified Medications: Changed From oxybutynin chloride ER 5 mg PO DAILY 30 days 30 tabs 1RF R39.15 - Urgency of urination To oxybutynin chloride ER 5 mg PO DAILY 90 tabs 1RF 90 days R39.15 - Urgency of urination Patient Instructions: Imaging studies, laboratory and physical exam results were discussed and reviewed in detail. No major barriers to patient understanding were identified. An opportunity to ask questions regarding the treatment plan was provided. All questions were answered. The patient expressed understanding and agreement with the above treatment plan. The patient is aware they should contact our office by phone for worsening of their current condition or the appearance of new urologic symptoms. Compliance is encouraged with any medications and followup testing that is ordered. It is a privilege to participate in the urologic care of your patient. If you have any questions or concerns regarding treatment for the above conditions, or other urologic issues, please do not hesitate to contact me. The office telephone contact is [phone]. This note is constructed using voice recognition software. While every effort has been made to ensure accuracy data management engineer errors may have been included. Yours sincerely, Dr Kyler Payton MD, [facility] - Urology Providers of Expert, Compassionate Care for the Genitourinary System Coding Level of Care Code Est Pt Level 3 (11746) Diagnoses Renal calculi N20.0 Kidney lesion N28.9 Urinary retention R33.9 CPT Codes Post Residual Void - PVR CPT Code: 65276-Oqif Void Residual by ultrasound ([id number])
== END 2024-06-08 15:58 | disposition home or self-care (01) ==
PROVIDERS: PCP Internal Medicine; Visit Provider Urology
DX: N20.0 Calculus of kidney (principal); N28.9 Disorder of kidney and ureter, unspecified; R33.9 Retention of urine, unspecified
CPT/HCPCS: 99213

== ENCOUNTER → 2024-06-08 14:42 | Outpatient (BNVA) | payer MEDICARE, MEDICAID, SELFPAY | PROVIDERS: PCP Internal Medicine; Visit Provider Urology | DX: N20.0 Calculus of kidney (principal); N28.9 Disorder of kidney and ureter, unspecified; R33.9 Retention of urine, unspecified | CPT/HCPCS: 51798; 99212 ==

== ENCOUNTER 2024-09-20 11:58 | Outpatient (AMB) | payer MEDICARE, MEDICAID, SELFPAY ==
[2024-09-20 11:59] VITALS: BP 138/72; PULSE 70; O2SAT 96; BMI 34.9
--- NOTE | 2024-09-20 11:59 | HO.NEPHOV_ITS ---
Vital Signs 09/20/24 11:59 Height 5 ft 10 in Weight 243 lb BMI 34.9 BP 138/72 Blood Pressure Location Lt brachial Position Sitting Pulse 70 Pulse Source Pulse Oximeter Pulse Oximetry (%) 96 Oxygen Delivery Method Room Air Intake Visit Reasons: R/S 09/17/2024-Conf Cabin Cleaning Supervisor Required: No Cabin Cleaning Supervisor Services: Cabin Cleaning Supervisor Offered & Declined (Son will translate) Accompanied by: Son Allergies No Known Allergies [No Known Allergies*] Allergy (Verified 09/20/24 12:01) Medication List - Last Reconciled 09/20/24 by Tony Kramer MD [bed rail As directed] lidocaine 5% (DermacinRx Lidocan) 1 patch topical DAILY PRN 30 days oxybutynin chloride ER 5 mg PO DAILY 90 days tamsulosin 0.4 mg PO BEDTIME 90 days [toilet safety rail As directed] walker (Ultra-Light Rollator misc) As directed HPI Comments Details: Middle-aged man with nephrolithiasis. Recently hospitalized for urinary retention. He had Palacios for 4 weeks. He has a follow up ultrasound and urology appointment. He is under the episode of UTI with Citrobacter and treated Bactrim Accompanied by his son No new issues today [facility] Medical History Mild major depression TACHO (acute kidney injury) Sepsis Hyperparathyroidism Total bilirubin, elevated LOR (generalized anxiety disorder) CKD (chronic kidney disease) Transaminitis Obese Anxiety associated with depression Impaired glucose tolerance ANA on CPAP Knee osteoarthritis Hypovitaminosis D Surgical History Hx of colonoscopy Family History Father Cancer Stroke Cirrhosis Mother Diabetes Social History Household Members: Spouse Housing: House Alcohol intake: never Patient Tobacco Use Status: Never used Tobacco e-Cigarette/Vaping Use: Never Used Second Hand Smoke Exposure: No service: No Current occupational status: disabled Cognitive needs: Yes Hearing needs: No Vision needs: Yes Physical Exam Vital Signs: Last Vital Signs Pulse 70 09/20/24 11:59 BP 138/72 09/20/24 11:59 Pulse Ox 96 09/20/24 11:59 Oxygen Delivery Method Room Air 09/20/24 11:59 BMI result Body Mass Index 34.9 Comfortable Neck supple no JVD. Lungs entry equal no rales. Heart S1-S2 heard no gallop or rub. Abdomen soft nontender. Neuro alert awake oriented. No asterixis. Extremities no edema. Results Reviewed Nephrology Results: Hgb 13.1 g/dl (14.0-18.0) L 03/14/24 WBC 7.0 X10*3/uL (4.8-10.8) 03/14/24 Plt Count 148 X10*3/uL (160-400) L 03/14/24 Sodium 140 mmol/L (135-145) 03/14/24 Potassium 4.2 mmol/L (3.3-5.1) 03/14/24 Chloride 109 mmol/L (96-108) H 03/14/24 Carbon Dioxide 24 mmol/L (22-29) 03/14/24 BUN 9 mg/dL (9-16) 03/14/24 Creatinine 0.95 mg/dL (0.5-1.4) 03/14/24 Calcium 9.1 mg/dL (8.4-10.2) 03/14/24 Urine Protein Negative mg/dL (Neg-Trace) 03/14/24 Assessment & Plan Assessment & Plan (1) TACHO (acute kidney injury): Code(s): N17.9 - Acute kidney failure, unspecified Category: Medical Plan: TACHO in the past due to urinary retention has resolved. Renal function is back to baseline recent creatinine 0.9. (2) Renal calculi: Code(s): N20.0 - Calculus of kidney Category: Medical Plan: Multiple renal calculi in recent imaging. No obstruction Encouraged to stay on low-sodium diet Increase p.o. fluid intake to maintain a urine output of 2 L. Increase citrate intake Orders: Orders Sodium, 24Hr Urine Group Today N20.0 - Calculus of kidney Creatinine, 24 Hr Group Today N20.0 - Calculus of kidney Calcium, 24 Hr Ur Today N20.0 - Calculus of kidney Oxalate, 24 Hr Today N20.0 - Calculus of kidney Citric Acid 24hr Urine Today N20.0 - Calculus of kidney Uric Acid, 24Hr Urine Group Today N20.0 - Calculus of kidney Coding Level of Care Code Est Pt Level 4 (28289) Diagnoses TACHO (acute kidney injury) N17.9 Renal calculi N20.0
== END 2024-09-20 12:11 | disposition home or self-care (01) ==
PROVIDERS: PCP Internal Medicine; Visit Provider Internal Medicine Hypertension Specialist
DX: N17.9 Acute kidney failure, unspecified (principal); N20.0 Calculus of kidney
CPT/HCPCS: 99214

== ENCOUNTER → 2024-09-20 11:58 | Outpatient (BNVA) | payer MEDICARE, MEDICAID, SELFPAY | PROVIDERS: PCP Internal Medicine; Visit Provider Internal Medicine Hypertension Specialist | DX: N17.9 Acute kidney failure, unspecified (principal); N20.0 Calculus of kidney | CPT/HCPCS: 99212 ==

== ENCOUNTER 2024-10-23 07:36 | Outpatient (AMB) | payer OTHER, SELFPAY ==
--- NOTE | 2024-10-23 07:38 | A.OFFVIS_ITS ---
Vital Signs 10/23/24 07:45 Height 50 ft 1 in Weight 240 lb 15.444 oz BMI 0.5 BP 122/80 Blood Pressure Location Rt brachial Position Sitting Pulse 81 Pulse Source Pulse Oximeter Pulse Oximetry (%) 97 Oxygen Delivery Method Room Air Intake Visit Reasons: oa Intake Note: Patient presents for OA. Senior Front End Engineer Required: Yes Senior Front End Engineer Language: Junior Programmer Analyst Services: Senior Front End Engineer Present Senior Front End Engineer Name: Ebony [id number] Information Interpreted: non-clinical & clinical Gray Mixing Operator: Gray Mixing Operator Present Accompanied by: Daughter Allergies No Known Allergies [No Known Allergies*] Allergy (Verified 10/23/24 07:42) Medication List - Last Reconciled 10/23/24 by Zoie Bradley MD [bed rail As directed] lidocaine 5% (DermacinRx Lidocan) 1 patch topical DAILY PRN 30 days oxybutynin chloride ER 5 mg PO DAILY 90 days tamsulosin 0.4 mg PO BEDTIME 90 days [toilet safety rail As directed] walker (Ultra-Light Rollator misc) As directed HPI Comments Details: Patient is a 63-year-old male with BPH on tamsulosin and polyarticular osteoarthritis here today for follow up Interval History: Patient last seen 09/09/2022 with [facility]. At that time he was following up for polyarticular arthritis. He did not have any particular complaints and he was told to follow up p.r.n.. Today, Patient is here today for follow up complaining of right shoulder pain bilateral medial elbow pain, hand pain and lateral left foot pain. He denies prolonged morning stiffness stating he is stiff in the morning for about 10-15 minutes. Pain is worse at the end of the day. No associated swelling. Planning to get a right knee replacement in November Rheumatologic History: Polyarticular osteoarthritis Current Rheumatology Medication(s): [facility] Medical History (Updated 10/23/24 @ 09:15 by Zoie Bradley MD) Polyarticular osteoarthritis Mild major depression TACHO (acute kidney injury) Sepsis Hyperparathyroidism Total bilirubin, elevated LOR (generalized anxiety disorder) CKD (chronic kidney disease) Transaminitis Obese Anxiety associated with depression Impaired glucose tolerance ANA on CPAP Knee osteoarthritis Hypovitaminosis D Surgical History Hx of colonoscopy Family History Father Cancer Stroke Cirrhosis Mother Diabetes Social History Household Members: Spouse Housing: House Alcohol intake: never Patient Tobacco Use Status: Never used Tobacco e-Cigarette/Vaping Use: Never Used Second Hand Smoke Exposure: No service: No Current occupational status: disabled Cognitive needs: Yes Hearing needs: No Vision needs: Yes Review of Systems Const Details: Review of Systems Constitutional: Denies fever, chills, weight loss ENT: Denies vision changes, eye pain or eye redness, dental caries, dry mouth GI: Denies nausea, vomiting, diarrhea, abdominal pain, change in BM Pulm: Denies SOB, COTTON, hemoptysis, wheezing Cards: Denies chest pain, palpitations Skin: Denies Raynaud's, rash, nail changes, photosensitivity, STRAP FOLDING MACHINE OPERATOR: Denies headaches, weakness, paresthesias, recurrent falls MSK: as per HPI All other systems reviewed and are unremarkable except noted above Physical Exam Vital Signs: Last Vital Signs Pulse 81 10/23/24 07:45 BP 122/80 10/23/24 07:45 Pulse Ox 97 10/23/24 07:45 Oxygen Delivery Method Room Air 10/23/24 07:45 BMI result Body Mass Index 0.5 Vital signs reviewed Physical Examination CONSTITUITIONAL Patient alert and cooperative. Well appearing and in no apparent painful distress HEENT Conjunctiva and sclera clear. ?Pupils equal round and reactive to light. ?No lymphadenopathy. ? CHEST/RESPIRATORY SYSTEM Normal respiratory effort and able to speak in complete sentences. ?Clear to auscultation bilaterally. ?No crackles, rales, rhonchi, wheezes heard. CARDIAC SYSTEM Regular rate and rhythm. ?S1 and S2 heard no murmurs. ?Radial pulses intact bilaterally MSK Hands: ?Good front end java developer strength bilaterally. Prominent [place] nodes throughout bilateral PIPs. Mild tenderness to palpation of the PIPs. Wrists: ?Full range of motion at the wrists without pain. ?No tenderness to palpation or synovitis noted to the wrists. Elbows: Full range of motion without pain. Tenderness to palpation of bilateral medial epicondyles with exacerbation of the pain with resisted wrist extension. Shoulders: Full range of motion without pain. Tenderness to palpation of the right subacromial bursa. Hips: Full range of motion without pain. Hip bursa: No tenderness to palpation Knees: ?Full range of motion. ?Tenderness to palpation of the right knee without evidence of swelling. Ankles: Full range of motion. ?No tenderness, swelling, increased warmth or erythema.? Feet: ?Negative squeeze test. ?No tenderness to palpation or swelling of the MTPs. Tender points:?No tenderness to palpation of the bilateral trapezius, supraspinatus, greater trochanters, anterior costochondral junctions, bilateral gluteal areas, bilateral suboccipital muscle insertions SKIN Skin intact without rashes. Office Procedures AMB Joint Injection/Aspiration Joint Injection/Aspiration Details: Procedure was explained to the patient and consent was obtained. ? The area of interest was identified and confirmed with patient. ?This was subsequently cleaned with chlorhexidine x3. ? The area was then anesthetized using ethyl chloride spray. 40 mg Kenalog with 1 cc 1% lidocaine was injected without issue. ?Minimal to no bleeding. ?Patient tolerated procedure. Primary Site: right shoulder (Right subacromial bursa) Prep: site was prepped using aseptic technique and ethochloride spray was applied Injected: 40 mg of, Kenalog, with 1 mL of, 1% plain lidocaine and in the subcromial space Procedure: The patient tolerated the procedure well Coding 37305 - Glenohumeral/Tronchanteric Bursa/Intraarticular Procedure code (CPT) selection complete Office Meds lidocaine (PF) 10 mg/mL (1 %) injection solution Performing Provider: Zoie Bradley MD Performing Location: [facility] Administered by: Zoie Bradley MD on 10/23/24 09:16 Dose Route Admin Location Dispensed Lot Number Expiration Date [facility] Security Delivery Specialist 1 mL Infiltration right subacromial bursa 2 mL [id number] 11/27/26 55730-926-75 [facility] Kenalog 40 mg/mL suspension for injection Performing Provider: Zoie Bradley MD Performing Location: [facility] Administered by: Zoie Bradley MD on 10/23/24 09:16 Dose Route Admin Location Dispensed Lot Number Expiration Date [facility] Security Delivery Specialist 40 mg intrabursal right subacromial bursa 1 mL [id number] 02/26/26 [address]-6 [employer] Results Reviewed Results Reviewed: Recent lab results or imaging seen Assessment & Plan Assessment & Plan (1) Polyarticular osteoarthritis: Code(s): M15.9 - Polyosteoarthritis, unspecified Category: Medical Plan: #Polyarticular OA Patient is a 63-year-old male with polyarticular osteoarthritis. Today his main complaints are his right knee, right shoulder and his hands. With respect to his knee I will not perform any procedures at this time given that he is going to get a knee replacement in 2 months. With respect to his right shoulder he was given a right shoulder subacromial bursa injection to help with the pain. For his hands I am recommending topical diclofenac 4 times a day Plan - Status post right subacromial bursa steroid injection - Topical diclofenac 1% applied to bilateral hands 4 times a day - Proceed with right total knee replacement - RTC 6 months or sooner (2) Medial epicondylitis: Code(s): M77.00 - Medial epicondylitis, unspecified elbow Qualifiers: Laterality: unspecified laterality Qualified Code(s): M77.00 - Medial epicondylitis, unspecified elbow Plan: #Bilateral medial epicondylitis Patient with bilateral medial epicondylitis. Printout given for stretches Plan I spent 20 minutes reviewing the record and labs, taking a history, examining the patient, discussing the treatment plan and documenting in the medical record Orders: Orders AMB Joint Injection/Aspiration Today M75.51 - Bursitis of right shoulder Medications: New diclofenac sodium 1% apply to bilateral hands 4 times a day 4 grams topical QID 100 grams 6RF M19.049 - Primary osteoarthritis, unspecified hand lidocaine (PF) 1 mL Infiltration ONCE 2 mL 0RF M75.51 - Bursitis of right shoulder Kenalog (triamcinolone acetonide) 40 mg intrabursal ONCE 1 mL 0RF NS M75.51 - Bursitis of right shoulder Coding Level of Care Code Est Pt Level 3 (46095) Diagnoses Polyarticular osteoarthritis M15.9 Medial epicondylitis of elbow, unspecified laterality M77.00 Laterality: unspecified laterality CPT Codes Coding - Joint 7: 18414 - Glenohumeral/Tronchanteric Bursa/Intraarticular ([id number])
--- OUTSIDE RECORDS SUMMARY | 2024-10-23 07:39 | XMS_ITS | Encounter Summary ---
Author Organization [facility] Address [address] [place] [address] Care Team Providers Care Systems Navigator Name Role Phone Physician, Pcp Unknown Primary Care Provider Erna vailable Reason for Visit * Reason Comments Osteoarthritis Follow-up Encounter Details Date Type Department Care Team (Late st Contact Info) Description 10/11/2024 2:30 PM EST Office Visit Orthopedic Surgery - [place] [address] [phone] Jordon Jaime MD [address] [address] Right hip pain (Primary Dx); Right knee pain; Post-traumatic osteoarthritis of right knee Social History Tobacco Use Types Packs/Day Years Used Date Smoking Tobacco: Never Assessed Sex and Gender Information Value Date Recorded Sex Assigned at Not on file Legal Sex Male 11:05 AM EDT Gender Identity Not on file Sexual Orientation Not on file documented as of this encounter Last Filed Vital Signs Vital Sign Reading Time Taken Comments Blood Pressure - - Pulse - - Temperature - - Respiratory Rate - - Oxygen Saturation - - Inhaled Oxygen Concentration - - Weight 109 kg (240 lb 12.8 oz) 10/11/2024 2:37 P M EST Height 177.8 cm (5' 10 ) 10/11/2024 2:37 PM EST Body Mass Index 34.55 10/11/2024 2:37 PM EST documented in this encounter Progress Notes * Jordon Jaime MD - 10/11/2024 2:30 PM EST Images from the original note were not included. * Regina Nair - 10/11/2024 2:30 PM ESTAddended by: REGINA NAIR on: 10/19/2024 03:07 PM Modules accepted: Orders * Jordon Jaime MD - 10/11/2024 2:30 PM EST [facility] Date: 10/11/2024 Reason for visit: Follow-up right knee arthritis Tan Room Supervisor: Afghan-son Eliazar HPI: Eliazar Victor is a 63 y.o. year old male I last saw 11/24/2023 for follow-up involving right knee medial meniscus tear with moderate underlying arthritis. He did not respond to oral celecoxib, intra-articular injection, or course of physical therapy. Therefore I referred him to sports medicine for consideration of knee arthroscopy. He did undergo arthroscopy on 12/22/2023 which involved a partial medial meniscectomy. Reviewing the operative note he also had grade 4 degenerative change involving the lateral compartment. Both him and his son do not feel that the surgery was helpful. He was unable to attend physical therapy after the surgery due to a course of urosepsis which required aFoley catheter for about a month. They believe that this was due to urinary retention. They do not remember him having urinary retention after the arthroscopy. He does follow-up with a kidney specialist he notes that things have improved. He continues to have consistent pain globally about the knee. This occurs essentially all the time. They are hoping to proceed with knee replacement surgery. Exam: Vitals: 10/11/24 1437 Weight: 109 kg (240 lb 12.8 oz) Height: 1.778 m (70 ) Well-appearing Afghan-speaking male, no apparent distress, and oriented. Accompanied by son. On examination of the right knee there is a mild to moderate effusion, no skin rash or lesions. Well-healed arthroscopic incisions. Knee range of motion is 5 to 120 degrees. Correctable varus. 1-2+ opening medially, 1+ opening laterally to valgus varus stress at 30 degrees. Stable to anterior and posterior drawer. Tenderness about the medial more than lateral joint line, mild tenderness and crepitus on patellar compression. No hip or groin pain on rotation. Does have some mild calf tenderness, but no asymmetric swelling or hyperemia. Negative Homans. Distally neurovascular intact. Labs: No results found for: WBC , HCT , PLT No results found for: NA , K , EGFR , ALBUMIN , BILITOT , AST , ALT , ALKPHOS , HGBA1C No results found for: INR , PTT No results found for: SEDRATE , CRP , RF , URICACID , ERLINDA Imagin views weightbearing of the right knee obtained today including AP, Pineda, lateral, sunrise were reviewed. These show severe degenerative change involving medial compartment including complete joint space narrowing, small marginal space, subchondral sclerosis. Mild degenerative changeinvolving patellofemoral compartment. 10 degree tibial varus. Degenerative changes have progressed from prior x-rays obtained 09/21 which now show hbzh-lg-zdtg arthritis involving the medial compartment. AP pelvis x-ray was obtained today before can be determined that the patient was coming in for his right knee. This shows no significant degenerative changes involving either hip, no obvious bony or soft tissue lesions about the hip or lower pelvis. Assessment: 63-year-old male with right knee severe posttraumatic arthritis status post arthroscopy12/22/23. ANA on CPAP. CKD. History of elevated LFTs. History of urinary retention. BMI 35. Plan: I discussed my findings, and I reviewed imaging studies with the patient and his son. He does have progressive now severe arthritis primarily involving the medial compartment of the knee, however he describes global pain about the knee. This has been resistant to activity modification, oral NSAIDs,intra-articular injection, physical therapy, and knee arthroscopy about 10 months ago. Due to the severe eqdn-fk-igin nature of his arthritis I do not believe that ongoing nonoperative treatments will provide-relief. Therefore we discussed definitive treatment including right total knee replacementsurgery. I used a model to review technical details, inherent benefits and risk, and anticipated recovery. I printed out information for them to review on knee replacement surgery. I did explain increased risk of infection and stiffness if surgery was performed within a year of arthroscopy, I thinkwe should be okay if this is at 11 or 12 months which is where I am booking. We also discussed his history of urinary retention and we will continue his urinary medications to try to minimize this. Finally we will need to confirm please preoperative blood work to evaluate his kidney disease and history of LFTs. There is nothing in our system. They understand these risks and wishes to proceed withsurgical scheduling. He will require preoperative labs, and clearance through PCP and dentist. Planon overnight stay, cemented PS components with stem, home CPAP, extended antibiotics, low-dose NSAIDs, no gabapentin. I will see him back at the preop appointment, no x-rays needed. Jordon Jaime MD [address] [address] W: [phone] F: [phone] Portions of this note were dictated utilizing the speech recognition software. Electronically Signed By: Jordon Jaime MD 10/11/2024 3:31 PM EST documented in this encounter Plan of Treatment Upcoming Encounters Date Type Department Care Team (Latest Contact Info) Description 12/17/2024 10:00 AM EDT Hospital Encounter [facility] OR [address] [place] [phone] Jordon Jaime MD [address] [address] 12/17/2024 10:00 AM EDT - 12/17/2024 12:30 PM EDT Surgery [address] [phone] Jordon Jaime MD [address] [address] RIGHT TOTAAL KNEE ARTHROPLASTY [[id number] (CPT??)] Scheduled Procedures Name Priority Associated Diagnoses Date/Ti me ARTHROPLASTY KNEE TOTAL Post-traumatic osteoarthritis of right knee 12/17/2024 10:00 AM EDT documented as of this encounter Results * XR Knee 4+ Views Right (10/11/2024 2:41 PM EST) Anatomical Region Laterality Modality Lower Extremities, Knee Right Computed Radiography Narrative 10/12/2024 12:04 PM EST 4 views weightbearing of the right knee obtained today including AP, Pineda, lateral, sunrise were reviewed. These show severe degenerative change involving medial compartment including complete joint space narrowing, small marginal space, subchondral sclerosis. Mild degenerative change involving patellofemoral compartment. 10 degree tibial varus. Degenerative changes have progressed from prior x-rays obtained 09/01/23 which now show ghdl-cg-ndzx arthritis involving the medial compartment. Jordon Jaime MD IMG XR PROCEDURES Fin al Result documented in this encounter Visit Diagnoses Diagnosis Right hip pain- Primary Pain in joint, pelvic region and thigh Right knee pain Pain in joint, lower leg Post-traumatic osteoarthritis of right knee Post-traumatic osteoarthritis of right knee- Primary Post-traumatic osteoarthritis of right knee documented in this encounter Discontinued Medications Medication Sig Discontinue Reason Start Date End Da te celecoxib (CeleBREX) 200 mg capsule TOME ERNA CAPSULA DOS VECES AL LEO CON ALIMENTO CUANDO SEA NECESARIO PARA EL DOLOR 10/11/2024 documented as of this encounter Historical Medications * This list may reflect changes made after this encounter. acetaminophen (TYLENOL) 500 mg tablet Take 2 tablets (1,000 mg total) by mouth. 12/22/2023 oxyBUTYnin XL (DITROPAN-XL) 5 mg 24 hr tablet TOME 1 TABLETA POR V A ORAL TODOS LOS D 10/02/2024 tamsulosin (FLOMAX) 0.4 mg 24 hr capsule TOME 1 C PSULA POR V A ORAL AL ACOSTARSE 09/03/2024 added in this encounter Orders Nursing Count Last Ordered Date First Orde red Date [id number] 2 10/11/2024 Case Request Count Last Ordered Date First Orde red Date CASE REQUEST OPERATING ROOM 1 10/11/2024 documented in this encounter Care Teams Systems Navigator Relationship Specialty Start Date End Date Physician, Pcp Unknown PCP - General 09/11/24 documented as of this encounter
--- OUTSIDE RECORDS SUMMARY | 2024-10-23 07:39 | XMS_ITS | Clinical Summary ---
Author Organization [address] [facility] Address [address] [place] [address] Phone Care Team Providers Care Laborer Airport Maintenance Name Role Phone Physician, Pcp Unknown Primary Care Provider Erna vailable Allergies No known active allergies Medications tamsulosin (FLOMAX) 0.4 mg 24 hr capsule TOME 1 C PSULA POR V A ORAL AL ACOSTARSE 09/03/19 25 Active oxyBUTYnin XL (DITROPAN-XL) 5 mg 24 hr tablet TOME 1 TABLETA POR V A ORAL TODOS LOS D 10/02/19 25 Active acetaminophen (TYLENOL) 500 mg tablet Take 2 tablets (1,000 mg total) by mouth. 12/22/19 24 Active celecoxib (CeleBREX) 200 mg capsule TOME ERNA CAPSULA DOS VECES AL LEO CON ALIMENTO CUANDO SEA NECESARIO PARA EL DOLOR 025 Discontinued Active Problems Problem Noted Date Diagnosed Date Post-traumatic osteoarthritis of right knee 09/29 Hyperparathyroidism 10/11/2024 Elevated bilirubin 10/11/2024 LOR (generalized anxiety disorder) 10/11/2024 CKD (chronic kidney disease) 10/11/2024 IGT (impaired glucose tolerance) 10/11/2024 ANA on CPAP 10/11/2024 Low vitamin D level 10/11/2024 Resolved Problems Problem Noted Date Diagnosed Date Resolved Date Primary osteoarthritis of right knee 09/01/2023 10/11/2024 Acute internal derangement of right knee 09/01/2023 10/11/2024 Encounters Date Type Department Care Team Description 10/11/2024 2:30 PM EST Office Visit Orthopedic Surgery [facility] 250 175 [facility] [address] [place] [phone] Jordon Jaime MD Right hip pain (Primary Dx); Right knee pain; Post-traumatic osteoarthritis of right knee from Last 3 Months Social History Tobacco Use Types Packs/Day Years Used Date Smoking Tobacco: Never Assessed Sex and Gender Information Value Date Recorded Sex Assigned at Not on file Legal Sex Male 11:05 AM EDT Gender Identity Not on file Sexual Orientation Not on file Last Filed Vital Signs Vital Sign Reading Time Taken Comments Blood Pressure - - Pulse - - Temperature - - Respiratory Rate - - Oxygen Saturation - - Inhaled Oxygen Concentration - - Weight 109 kg (240 lb 12.8 oz) 10/11/2024 2:37 P M EST Height 177.8 cm (5' 10 ) 10/11/2024 2:37 PM EST Body Mass Index 34.55 10/11/2024 2:37 PM EST Plan of Treatment Upcoming Encounters Date Type Department Care Team (Latest Contact Info) Description 12/17/2024 10:00 AM EDT Hospital Encounter [facility] OR [address] [place] [phone] Jordon Jaime MD [address] [address] 12/17/2024 10:00 AM EDT - 12/17/2024 12:30 PM EDT Surgery [facility] OR [address] [place] [phone] Jordon Jaime MD [address] [address] RIGHT TOTAAL KNEE ARTHROPLASTY [[id number] (CPT??)] Scheduled Procedures Name Priority Associated Diagnoses Date/Ti me ARTHROPLASTY KNEE TOTAL Post-traumatic osteoarthritis of right knee 12/17/2024 10:00 AM EDT Health Maintenance Due Date Last Done Comments Pneumococcal Vaccine: 50+ Years (1 of 1 - PCV) 2008 Zoster Vaccines (1 of 2) 2008 COVID-19 Vaccine (3 - Pfizer risk series) 02/02/2021 01/05/2021, 12/15/2020 Abdominal Aortic Aneurysm (AAA) Screen 03/21/2024 Cholesterol Screening (Lipid Panel) 03/21/2024 Colorectal Cancer Screening: Colonoscopy 03/21/2024 Depression Screening 03/21/2024 Falls Risk Assessment 03/21/2024 Hepatitis C Screening 03/21/2024 Medicare Annual Wellness Visit 03/21/2024 Social Influencers of Health Screening 03/21/2024 Influenza Vaccine (#1) 2024 2, 06/21/2021, 05/11/2020, Additional history exists DTaP,Tdap,and Td Vaccines (2 - Td or Tdap) 07/21/2026 07/21/2016 RSV Immunization Patients 60+ Years Old (1 - 1-dose 75+ series) 2033 HIB Vaccines Aged Out No longer eligi ble based on patient's age to complete this topic HPV Vaccines Aged Out No longer eligi ble based on patient's age to complete this topic Hepatitis A Vaccines Aged Out No long er eligible based on patient's age to complete this topic Hepatitis B Vaccines Aged Out No long er eligible based on patient's age to complete this topic IPV Vaccines Aged Out No longer eligi ble based on patient's age to complete this topic MMR Vaccines Aged Out No longer eligi ble based on patient's age to complete this topic Meningococcal ACWY Vaccine Aged Out N o longer eligible based on patient's age to complete this topic Meningococcal B Vacine Aged Out No lo nger eligible based on patient's age to complete this topic Pneumococcal Vaccine: Pediatrics (0 to 5 Years) and At-Risk Patients (6 to 64 Years) Aged Out No longer eligible based on patient's age to complete this topic RSV Immunization Patients Under 20 months Aged Out No longer eligible based on patient's age to complete this topic Varicella Vaccines Aged Out No longer eligible based on patient's age to complete this topic Procedures Procedure Name Priority Date/Time Associated Diagnosis Comments XR KNEE 4+ VIEWS RIGHT Routine 10/11/2024 2:41 PM EST Right knee pain from Last 3 Months Results * XR Knee 4+ Views Right [...] prior x-rays obtained 09/01/23 which now show bkuz-fu-dnme arthritis involving the medial compartment. Jordon Jaime MD IMG XR PROCEDURES Fin al Result from Last 3 Months Insurance [facility] [employer] MEDICARE Member Subscriber Plan / Payer (Ef fective 2024-Present) Name:Eliazar Burgos Relation to Subscriber:Self Name:Eliazar Burgos Payer ID:[id number] Group ID:[id number] Type:Not on file Address: [address] [place] [address] Care Teams Laborer Airport Maintenance Relationship Specialty Start Date End Date Physician, Pcp Unknown PCP - General 09/11/24
--- OUTSIDE RECORDS SUMMARY | 2024-10-23 07:39 | XMS_ITS | Clinical Summary ---
Author Organization [facility] Address [address] [place] [address] Phone Care Team Providers Care Feeder Driver Name Role Phone Sahara Hodges MD Primary Care Provider Allergies No known active allergies Medications No known medications Active Problems Problem Noted Date Diagnosed Date Acute nontraumatic kidney injury 11/17/2021 Family History Medical History Relation Comments Cancer Father liver Hypertension Father Diabetes Mother Heart disease Mother Relation Status Comments Father Mother Social History Tobacco Use Types Packs/Day Years Used Date Smoking Tobacco: Never Smokeless Tobacco: Never Alcohol Use Standard Drinks/Week Comments No 0 (1 standard drink = 0.6 oz pur e alcohol) Sex and Gender Information Value Date Recorded Sex Assigned at Not on file Legal Sex Male 4:51 PM EST Gender Identity Not on file Sexual Orientation Not on file Last Filed Vital Signs Vital Sign Reading Time Taken Comments Blood Pressure 127/64 05/30/2023 4:00 PM EDT Pulse 66 05/30/2023 4:00 PM EDT Temperature - - Respiratory Rate - - Oxygen Saturation 98% 05/30/2023 4:00 PM EDT Inhaled Oxygen Concentration - - Weight 103 kg (226 lb 9.6 oz) 05/30/2023 4:00 PM EDT Height - - Body Mass Index - - Plan of Treatment Health Maintenance Due Date Last Done Comments Pneumococcal Vaccine: 65+ Ye ars (1 of 2 - PCV) 1964 Pneumococcal Vaccine: Pediat rics (0 to 5 Years) and At-Risk Patients (6 to 64 Years) (1 of 2 - PCV) 1964 Colorectal Cancer Screening: Annual FOBT 2007 Colorectal Cancer Screening: Colonoscopy 2007 Colorectal Cancer Screening: Sigmoidoscopy 2007 Influenza Vaccine (#1) 2024 Hepatitis B Vaccine Aged Out No longe r eligible based on patient's age to complete this topic Care Teams Feeder Driver Relationship Specialty Start Date End Date Sahara Hodges MD [address] [place], [place] PCP - General 09/08/20
[2024-10-23 07:45] VITALS: BP 122/80; PULSE 81; O2SAT 97
== END 2024-10-23 08:32 | disposition home or self-care (01) ==
PROVIDERS: PCP Internal Medicine; Visit Provider Student in an Organized Health Care Education/Training Program
DX: M15.9 Polyosteoarthritis, unspecified (principal); M77.00 Medial epicondylitis, unspecified elbow; M75.51 Bursitis of right shoulder
CPT/HCPCS: 20610; 99213

== ENCOUNTER → 2024-10-23 07:36 | Outpatient (BNVA) | payer OTHER, SELFPAY | PROVIDERS: PCP Internal Medicine; Visit Provider Student in an Organized Health Care Education/Training Program | DX: M75.51 Bursitis of right shoulder (principal); M77.00 Medial epicondylitis, unspecified elbow; M19.049 Primary osteoarthritis, unspecified hand | CPT/HCPCS: 20610; 99212; J3300 ==

== ENCOUNTER → 2024-11-08 06:12 | Outpatient (REF) | payer OTHER, SELFPAY ==
--- OUTSIDE RECORDS SUMMARY | 2024-11-08 06:15 | XMS_ITS | Encounter Summary ---
Author Organization [employer] Address [address] [place] [address] Care Team Providers Care Raimann Machine Operator Name Role Phone Physician, Pcp Unknown Primary Care Provider Erna vailable Reason for Visit * Reason Comments Osteoarthritis Follow-up Encounter Details Date Type Department Care Team ([facility] st Contact Info) Description 10/11/2024 2:30 PM EST Office Visit Orthopedic Surgery - [place] [address] [phone] Jordon Jaime MD [address] [address] Right hip pain (Primary Dx); Right knee [...] 10/11/2024 2:30 PM EST [facility] Date: 10/11/2024 Reason for visit: Follow-up right knee arthritis Social Psychologist: Northern Irish-son Eliazar HPI: Eliazar Victor is a 63 [...] oz) Height: 1.778 m (70 ) Well-appearing Northern Irish-speaking male, no apparent distress, and oriented. Accompanied [...] prior x-rays obtained 09/21 which now show nhyb-bm-mxvs arthritis involving the medial compartment. AP pelvis [...] 10 months ago. Due to the severe pyih-fx-ydny nature of his arthritis I do not [...] understand these risks and wishes to proceed with surgical scheduling. He will require preoperative labs, and clearance through PCP and dentist. Plan on overnight stay, cemented PS components with stem, home CPAP, extended antibiotics, low-dose NSAIDs, no gabapentin. I will see him back at the preop appointment, no x-rays needed. Jordon Jaime MD [address] [address] W: [phone] F: [phone] Portions of this note were dictated utilizing the speech recognition software. Electronically Signed By: Jordon Jaime MD 10/11/2024 3:31 PM EST documented in this encounter Plan of Treatment Upcoming Encounters Date Type Department Care Team (Latest Contact Info) Description 12/12/2024 11:30 AM EDT Consult Orthopedic Surgery - [address] [phone] Payton Sandy NP [address] [address] 12/17/2024 10:00 AM EDT Hospital Encounter Main OR [address] [place] [phone] Jordon Jaime MD [address] [address] 12/17/2024 10:00 AM EDT - 12/17/2024 12:30 PM EDT Surgery [facility] OR [address] [place] [phone] Jordon Jaime MD [address] [address] RIGHT TOTAAL KNEE ARTHROPLASTY [[id number] (CPT??)] 01/02/2025 3:30 PM EDT Office Visit Orthopedic Surgery - [place] [address] [phone] Jordon Jaime MD [address] [address] 01/03/2025 2:30 PM EDT Office Visit Orthopedic Surgery - [place] [address] [phone] Jordon Jaime MD [address] [address] Scheduled Procedures Name Priority Associated Diagnoses Date/Ti [...] prior x-rays obtained 09/01/23 which now show pmma-xp-bgnx arthritis involving the medial compartment. us Jordon Jaime MD IMG XR PROCEDURES Fin [...] Last Ordered Date First Orde red Date [id number] 2 10/11/2024 Case Request Count Last Ordered Date First Orde red Date CASE REQUEST OPERATING ROOM 1 10/11/2024 documented in this encounter Care Teams Raimann Machine Operator Relationship Specialty Start Date End Date Physician, Pcp Unknown PCP - General 09/11/24 documented as of this encounter
--- OUTSIDE RECORDS SUMMARY | 2024-11-08 06:15 | XMS_ITS | Clinical Summary ---
Author Organization 175 [facility] Address 175 [place] [address] Phone Care Team Providers Care Automobile Parts Assembler Name Role Phone Physician, Pcp Unknown Primary [...] 2:30 PM EST Office Visit Orthopedic Surgery [facility] 250 175 [facility] [address] [place] [phone] Jordon Jaime MD Right hip pain (Primary [...] 12/12/2024 11:30 AM EDT Consult Orthopedic Surgery [place] [address] [phone] Payton Sandy NP [address] [address] 12/17/2024 10:00 AM EDT Hospital Encounter [facility] OR [address] [place] [phone] Jordon Jaime MD [address] [place] [address] 12/17/2024 10:00 AM EDT - 12/17/2024 12:30 PM EDT Surgery [facility] Main OR [address] [place] [phone] Jordon Jaime MD [address] [address] RIGHT TOTAAL KNEE ARTHROPLASTY [[id number] (CPT??)] 01/02/2025 3:30 PM EDT Office Visit Orthopedic Surgery - [place] [address] [phone] Jordon Jaime MD [address] [address] 01/03/2025 2:30 PM EDT Office Visit Orthopedic Surgery [facility] [address] [phone] Jordon Jaime MD [address] [address] Scheduled Procedures Name Priority Associated Diagnoses Date/Ti [...] prior x-rays obtained 09/01/23 which now show ryrl-lm-ozuo arthritis involving the medial compartment. Jordon Jaime MD IMG XR PROCEDURES Fin al Result from Last 3 Months Insurance [facility] [employer] OPT[employer] MEDICARE Member Subscriber Plan / Payer (Ef fective 2024-Present) Name:Plunkett VictorEliazar velazco Relation to Subscriber:Self Name:Eliazar Burgos Payer ID:[id number] Group ID:[id number] Type:Not on file Address: [address] [place] [address] Care Teams Automobile Parts Assembler Relationship Specialty Start Date End Date Physician, Pcp Unknown PCP - General 09/11/24
--- OUTSIDE RECORDS SUMMARY | 2024-11-08 06:15 | XMS_ITS | Clinical Summary ---
Author Organization [facility] Address [address] [place] [address] Phone Care Team Providers Care Retort Setter Name Role Phone Sahara Hodges MD Primary Care Provider [phone] Allergies No known active allergies Medications No [...] ars (1 of 2 - PCV) 1966 Colorectal Cancer Screening: Annual FOBT 2007 Colorectal Cancer Screening: Colonoscopy 2007 Colorectal Cancer Screening: Sigmoidoscopy 2007 Influenza Vaccine (#1) 2024 Hepatitis B Vaccine Aged Out No longe r eligible based on patient's age to complete this topic Care Teams Retort Setter Relationship Specialty Start Date End Date Sahara Hodges MD [address] [place], [place] PCP - General 09/08/20
[2024-11-08 06:29] LABS: MANUAL DIFF FLAG NO
[2024-11-08 07:06] LABS: Basophils Percent Auto 0.3 % (0-2); Eosinophils Absolute Auto 0.1 X10*3/uL (0.0-0.4); Eosinophils Percent Auto 1.2 % (0-4); Hemoglobin 14.2 g/dl (14.0-18.0); Imm Gran Abs Auto 0.03 X10*3/uL (0.00-0.03); Imm Gran Pct Auto 0.3 % (0.0-0.4); Lymphocytes Absolute Auto 1.6 X10*3/uL (1.2-4.9); Lymphocytes Percent Auto 17.2 % (20-40); Mean Corpuscular HGB Conc 33.8 g/dl (31.0-36.0); Mean Corpuscular Hemoglobin 31.5 pg (27.0-33.0); Mean Corpuscular Volume 93.1 fL (80.0-98.0); Mean Platelet Volume 11.7 fL (9.4-12.4); Monocytes Absolute Auto 0.8 X10*3/uL (0.1-1.2); Monocytes Percent Auto 8.9 % (2-11); Neutrophils Absolute Auto 6.6 x10*3/uL (2.0-8.3); Neutrophils Percent Auto 72.1 % (45-73); Platelet Count 142 X10*3/uL (160-400); Red Blood Count 4.51 X10*6/uL (4.60-5.80); Red Cell Distribution Width 12.3 % (11.0-16.0); White Blood Count 9.2 X10*3/uL (4.8-10.8)
[2024-11-08 07:08] LABS: Appearance Urine Turbid; Color Urine Yellow; Glucose Urine UA Negative (Negative); Leukocyte Esterase Urine Moderate (2+) (Negative); Nitrite Urine Negative (Negative); PH 5.5 (5.0-9.0); UMIC TRIGGER UACC YES; Urine Blood Trace (Negative); Urine Ketones Negative (Negative); Urine Protein Negative (Neg-Trace)
[2024-11-08 07:10] LABS: Alanine Aminotransferase 54 U/L (0-40); Alkaline Phosphatase 113 U/L (39-117); Anion Gap 11 (12-20); Aspartate Amino Transferase 53 U/L (5-37); Bilirubin Total 0.9 mg/dL (0.0-1.0); Blood Urea Nitrogen 14 mg/dL (9-16); Calcium 9.1 mg/dL (8.4-10.2); Carbon Dioxide 23 mmol/L (22-29); Chloride 109 mmol/L (96-108); Estimated Glomerular Filt Rate > 60; Glucose Fasting 121 mg/dL (60-99); Potassium 4.4 mmol/L (3.3-5.1); Sodium 139 mmol/L (135-145); Total Protein 7.7 g/dL (6.5-8.0)
[2024-11-08 07:14] LABS: Bacteria Urine Trace (None Seen); Hyaline Casts Urine 0-2 /LPF (0-2); RBC Urine 0-2 /HPF (0-2); Squamous Epithelial Cell Urine 0-2 /HPF (0-2); UACC Culture Trigger YES; WBC Urine >50 /HPF (0-5)
--- NOTE | 2024-11-08 07:35 | ECG_ITS ---
Test Reason : pre op Blood Pressure : */* mmHG Vent. Rate : 66 BPM Atrial Rate : 66 BPM P-R Int : 198 ms QRS Dur : 88 ms QT Int : 402 ms P-R-T Axes : 41 64 34 degrees QTcB Int : 421 ms Normal sinus rhythm Normal ECG When compared with ECG of 13-Dec-2023 08:27, No significant change was found Referred By: Sahara Arnett Electronically Signed By: STORMY GILLESPIE
== END ==
LOC: HO.CARD 06:12
PROVIDERS: Internal Medicine Hypertension Specialist; PCP Internal Medicine; Visit Provider Internal Medicine
DX: Z01.818 Encounter for other preprocedural examination (principal); N20.0 Calculus of kidney; R73.02 Impaired glucose tolerance (oral); R68.83 Chills (without fever); M15.9 Polyosteoarthritis, unspecified; D64.9 Anemia, unspecified; R39.9 Unspecified symptoms and signs involving the genitourinary system
CPT/HCPCS: 36415; 80053; 81001; 81003; 84300; 85025; 87086; 87088; 87186; 93005

== ENCOUNTER → 2024-11-08 07:35 | Outpatient (BNV) | payer OTHER, SELFPAY | PROVIDERS: PCP Internal Medicine; Visit Provider Internal Medicine | DX: Z01.810 Encounter for preprocedural cardiovascular examination (principal) | CPT/HCPCS: 93010 ==

== ENCOUNTER 2024-11-15 17:06 | Outpatient (AMB) | payer OTHER, SELFPAY ==
--- NOTE | 2024-11-15 17:07 | MHC.PC.OV ---
Vital Signs 11/15/24 17:08 Height 5 ft 10 in Weight 241 lb BMI 34.6 BP 130/80 Blood Pressure Location Lt brachial Position Sitting Pulse 77 Pulse Source Pulse Oximeter Pulse Oximetry (%) 98 Oxygen Delivery Method Room Air Intake Visit Reasons: rt knee replacement- see comm Aviation Warfare Systems Operator Required: Yes Aviation Warfare Systems Operator Language: Clinical Cytogenetics Director Name: Sahara Arnett MD Information Interpreted: non-clinical & clinical Accompanied by: Daughter Allergies No Known Allergies [No Known Allergies*] Allergy (Verified 11/15/24 17:31) Medication List - Last Reconciled 11/15/24 by Sahara Arnett MD [bed rail As directed] ciprofloxacin HCl (Cipro) 250 mg PO BID 3 days diclofenac sodium 1% 4 grams topical QID lidocaine 5% (DermacinRx Lidocan) 1 patch topical DAILY PRN 30 days oxybutynin chloride ER 5 mg PO DAILY 90 days tamsulosin 0.4 mg PO BEDTIME 90 days [toilet safety rail As directed] walker (Ultra-Light Rollator misc) As directed Tobacco use date assessed: 11/15/24 Fall risk assessment: No Falls in past year Last assessed Fall Risk: 11/15/24 Dental Screening Dental Screen Date: 11/15/24 Did you have a dental visit in the last 12 months?: Yes Did you have a dental problem in the last 6 months where you did not have access to dental care?: No Was dental information given to patient?: Patient has dentist HPI HPI Comments History of Present Illness Details The patient is a 64-year-old male presenting with the need for a preoperative evaluation for forthcoming right knee replacement surgery due to osteoarthritis. The patient has a history of prediabetes with glucose levels showing a recent elevation, although symptomatic manifestations such as chest pain or shortness of breath are not present. A family history of diabetes and memory loss on the maternal side and liver cancer on the paternal side was noted. Patient has 5-7 Mets of ADLs. Walks with a cane for gait stability. EKG and labs were reviewed. By RCRI patient is class 1 with 0.4% risk of cardiac complications. Patient is medically clear for surgery. The patient manages benign prostatic hyperplasia and overactive bladder with tamsulosin and oxybutynin, reporting stable urological status without any recent exacerbations. The surgical review includes a previous colonoscopy procedure, with no current medical concerns beyond those addressed today for his surgical candidacy assessment. [facility] Medical History (Updated 11/15/24 @ 20:18 by Sahara Arnett MD) Polyarticular osteoarthritis Mild major depression TACHO (acute kidney injury) Sepsis Hyperparathyroidism Total bilirubin, elevated LOR (generalized anxiety disorder) CKD (chronic kidney disease) Transaminitis Obese Anxiety associated with depression Impaired glucose tolerance ANA on CPAP Knee osteoarthritis Hypovitaminosis D Surgical History Hx of colonoscopy Family History Father Cancer Stroke Cirrhosis Mother Diabetes Social History Household Members: Spouse Housing: House Alcohol intake: never Patient Tobacco Use Status: Never used Tobacco e-Cigarette/Vaping Use: Never Used Second Hand Smoke Exposure: No service: No Current occupational status: disabled Cognitive needs: Yes Hearing needs: No Vision needs: Yes Questionnaire PHQ-9 Over the last 2 weeks, how often have you been bothered by any of the following problems? 1. Little interest or pleasure in doing things: not at all 2. Feeling down, depressed, or hopeless: not at all 3. Trouble falling or staying asleep, or sleeping too much: not at all 4. Feeling tired or having little energy: not at all 5. Poor appetite or overeating: not at all 6. Feeling bad about yourself - or that you are a failure or have let yourself or your family down: not at all 7. Trouble concentrating on things, such as reading the newspaper or watching television: not at all 8. Moving or speaking so slowly that other people could have noticed. Or the opposite - being so fidgety or restless that you have been moving around a lot more than usual: not at all 9. Thoughts that you would be better off or of hurting yourself in some way: not at all Total score: 0 Depression Screening Interpretation: Negative Depression Screening Done: Yes 67800 - PHQ-9 Billing: Yes Source: Developed by Drs. Desean Chang, Masha Drew, Nato Moncada and colleagues, with an educational lalitha from [employer]. Thrive Questionnaire Date Thrive assessed: 11/15/24 I am a: Patient What is your living situation today?: I have a steady place to live Within the past 12 months, did the food you bought not last and you didn't have the money to get more?: Never true Within the past 12 months, did you worry whether your food would run out before you got money to buy more?: Never true Do you have trouble paying for medicines?: No Do you have trouble getting transportation to medical appointments?: No Do you have trouble paying your heating and electricity bill?: No Do you have trouble taking care of your child, family member or friend?: No Do you have trouble with day-to-day activities such as bathing, preparing meals, shopping, managing finances, etc.?: No Are you currently unemployed and looking for a job?: No Are you interested in more education?: No Please select the resources that you would like help with: None Currently or been in a relationship where the following occur: No concerns reported THRIVE Score: 0 AUDIT C Alcohol Use Questionnaire (AUDIT-C) 1. How often do you have a drink containing alcohol?: Never Total Score: 0 Score Reviewed/Action Taken: No LOR-7 AMB Questionnaire LOR-7 Date LOR - 7 assessed: 11/15/24 Feeling nervous, anxious, or on edge: 0 = Not at all Not being able to stop or control worryin = Not at all Worrying too much about different things: 0 = Not at all Trouble relaxin = Not at all Being so restless that it is hard to sit still: 0 = Not at all Becoming easily annoyed or irritable: 0 = Not at all Feeling afraid as if something awful might happen: 0 = Not at all Total LOR-7 score (0-4 normal; 5-9 mild; 10-14 moderate; 15-21 severe): 0 Source: Developed by Drs. Desean Chang, Masha Drew, Nato Moncada and colleagues, with an educational lalitha from [employer]. LOR-7 Assessment Billing LOR-7 Assessment Tool: LOR-7 Assessment 82726 Review of Systems Const All systems reviewed & are unremarkable except as noted in HPI and below Card Denies chest pain at rest, Denies chest pain with activity, Denies edema, Denies irregular heart rhythm, Denies claudication, Denies dyspnea, Denies dyspnea on exertion, Denies orthopnea, Denies paroxysmal nocturnal dyspnea and Denies slow heart rate Resp Denies cough, Denies dyspnea and Denies dyspnea on exertion GI Denies abdominal pain, Denies change in bowel habits, Denies excessive flatus, Denies nausea and Denies vomiting Denies urinary hesitancy, Denies urinary incontinence and Denies urinary urgency Physical exam (Primary Care) Vital Signs: Last Vital Signs Pulse 77 11/15/24 17:08 BP 130/80 11/15/24 17:08 Pulse Ox 98 11/15/24 17:08 Oxygen Delivery Method Room Air 11/15/24 17:08 BMI result Body Mass Index 34.6 Tobacco/Smoking Status: Tobacco use Status Tobacco use date assessed 11/15/24 11/15/24 17:14 Patient Tobacco Use Status Never used Tobacco 11/15/24 17:14 e-Cigarette/Vaping Use Never Used 11/15/24 17:14 PHQ-9: PHQ-9 Score PHQ-9: Total score 0 11/15/24 17:39 Depression Screening Interpretation: Negative Thrive Assessment: Date of Thrive Assessment Date Thrive assessed 11/15/24 11/15/24 17:14 Currently or been in a relationship where the following occur: No concerns reported Resp Effort & Inspection: normal respiratory effort Auscultation: clear to auscultation bilaterally Cardio Jugular venous distension: no JVD Rate: regular rate Rhythm: regular rhythm Heart sounds: S1 normal heart sound present and S2 normal heart sound present Extrem General: Yes full ROM Results AMB Hemoglobin A1c AMB Hemoglobin A1c 6.0 % Last Edit by KIRSTIN Givens on 11/15/24 17:42 Results Reviewed Results Reviewed: Laboratory Last Values Hgb A1c (Clinic) 6.0 % (4.0-6.0) 11/15/24 17:36 Coding Level of Care Code Est Pt Level 3 (08829) Complex EM visit Add On G2211 Diagnoses Pre-op evaluation Z01.818 Impaired glucose tolerance R73.02 Primary osteoarthritis of right knee M17.11 Osteoarthritis type: primary Laterality: right Additional Codes LOR-7 Assessment Billing - LOR-7 Assessment Tool: LOR-7 Assessment 05058 ([id number]) PHQ-9 - 55275 - PHQ-9 Billing: Yes ([id number]) Time Spent (min) 19 Assessment & Plan Assessment & Plan (1) Pre-op evaluation: Code(s): Z01.818 - Encounter for other preprocedural examination Category: Medical (2) Impaired glucose tolerance: Code(s): R73.02 - Impaired glucose tolerance (oral) Category: Medical (3) Knee osteoarthritis: Code(s): M17.10 - Unilateral primary osteoarthritis, unspecified knee Category: Medical Qualifiers: Osteoarthritis type: primary Laterality: right Qualified Code(s): M17.11 - Unilateral primary osteoarthritis, right knee Plan The patient's right knee osteoarthritis is being managed with a planned replacement surgery, ensuring no significant contraindications. Continued monitoring of glucose due to prediabetes is warranted, with HbA1c evaluation planned. Elevated liver enzymes suggest possible further observation, though not currently impacting operative plans. Management for benign prostatic hyperplasia and overactive bladder remains unchanged with current pharmacotherapy. Patient was informed and verbally consented to the use of an ambient scribe for clinic note documentation during this visit. I discussed the planned right knee replacement and the patient's preparedness regarding chronic conditions like prediabetes and elevated liver enzymes. We agreed to proceed with surgery while monitoring these conditions, emphasizing checking the HbA1c. I confirmed the cardiovascular normal findings with a routine ECG indicating minimal surgical risk. We discussed the consistent management of urological symptoms with tamsulosin and oxybutynin and no need for immediate changes. I informed him about routine follow-ups and scheduled tests to reassess glycemic control and liver enzyme status before surgery. The patient understood and agreed with this management approach. Orders: Orders AMB Hemoglobin A1c Today R73.02 - Impaired glucose tolerance (oral) Patient Instructions: - Monitor blood glucose regularly and adhere to dietary recommendations to help manage prediabetes. - Follow up with the scheduled HbA1c test. - Continue medications for benign prostatic hyperplasia and overactive bladder as prescribed. - Attend preoperative appointments and ensure all diagnostic evaluations are complete. - Seek medical attention if experiencing new symptoms such as chest pain, shortness of breath, or any significant changes in health status.
[2024-11-15 17:08] VITALS: BP 130/80; PULSE 77; O2SAT 98; BMI 34.6
--- OUTSIDE RECORDS SUMMARY | 2024-11-15 18:10 | XMS_ITS | Clinical Summary ---
Author Organization [address] [facility] Address [address] [place] [address] Phone Care Team Providers Care Reading Teacher Name Role Phone Sahara Arnett MD Primary Care Provider [phone] Allergies No known active allergies Medications tamsulosin (FLOMAX) 0.4 mg 24 hr capsule TOME 1 C PSULA POR V A ORAL AL ACOSTARSE 5 Active oxyBUTYnin XL (DITROPAN-XL) 5 mg 24 hr tablet TOME 1 TABLETA POR V A ORAL TODOS LOS D 5 Active acetaminophen (TYLENOL) 500 mg tablet Take 2 tablets (1,000 mg total) by mouth. 4 Active Active Problems Problem Noted Date Diagnosed Date [...] Surgery [facility] [address] [address] Jordon Jaime MD Right hip pain (Primary Dx); Right knee pain; Post-traumatic osteoarthritis of right knee from Last 3 Months Surgical History Surgery Date Site/Laterality Comments KNEE ARTHROSCOPY W/ PARTIAL MEDIAL MENISCECTOMY Right Medical History Medical History Date Comments ANA on CPAP Urinary retention OA (osteoarthritis) Social History Tobacco Use Types Packs/Day Years Used Date Smoking Tobacco: Never Assessed Sex and Gender Information Value Date Recorded Sex Assigned at Not on file Legal Sex Male 11:05 AM EDT Gender Identity Not on file Sexual Orientation Not on file Obstetrics History Last Filed Vital Signs Vital Sign Reading Time Taken Comments Blood Pressure - - Pulse - - Temperature - - Respiratory Rate - - Oxygen Saturation - - Inhaled Oxygen Concentration - - Weight 109 kg (240 lb) 11/13/2024 10:00 AM EDT Height 177.8 cm (5' 10 ) 11/13/2024 10:00 AM EDT Body Mass Index 34.44 11/13/2024 10:00 AM EDT Plan of Treatment Upcoming Encounters Date Type Department Care Team (Latest Contact Info) Description 12/12/2024 11:30 AM EDT Consult Orthopedic Surgery [place] [address] [phone] Payton Sandy NP [address] [address] 12/17/2024 10:00 AM EDT Hospital Encounter [facility] OR [address] [place] [phone] Jordon Jaime MD [address] [address] 12/17/2024 10:00 AM EDT - 12/17/2024 12:30 PM EDT Surgery [facility] OR [address] [place] [phone] Jordon Jaime MD [address] [address] RIGHT TOTAAL KNEE ARTHROPLASTY [[id number] (CPT??)] 01/02/2025 3:30 PM EDT Office Visit Orthopedic Surgery [place] [address] [phone] Jordon Jaime MD [address] [address] 01/03/2025 2:30 PM EDT Office Visit Orthopedic Surgery [facility] [address] [phone] Jordon Jaime MD [address] [address] Scheduled Procedures Name Priority Associated Diagnoses Date/Ti [...] prior x-rays obtained 09/01/23 which now show cipj-ip-lagb arthritis involving the medial compartment. Jordon Jaime MD IMG XR PROCEDURES Fin al Result from Last 3 Months Insurance [facility] [employer] Member Subscriber Plan / Payer (Ef fective 2024-Present) Name:Eliazar Burgos Relation to Subscriber:Self Name:Eliazar Burgos Payer ID:[id number] Group ID:Not on file Type:Not on file Address: [address] [place] [address] [employer] MED[employer] Member Subscriber Plan / Payer (Ef fective 2024-Present) Name:Eliazar Burgos Relation to Subscriber:Self Name:Eliazar Burgos Payer ID:[id number] Group ID:[id number] Type:Not on file Address: [address] [place] [address] Care Teams Reading Teacher Relationship Specialty Start Date End Date Sahara Arnett MD [address] [place] [address] , [address] [facility] D[facility]A: [facility] DESHAWN Navarrete PCP - General Internal Medicine 11/13/24
--- OUTSIDE RECORDS SUMMARY | 2024-11-15 18:10 | XMS_ITS | Encounter Summary ---
Author Organization [facility] Address [address] [place] [address] Care Team Providers Care Sneller Hand Name Role Phone Physician, Pcp Unknown Primary Care Provider Erna vailable Reason for Visit * Reason Comments Osteoarthritis Follow-up Encounter Details Date Type Department Care Team (Late st Contact Info) Description 10/11/2024 2:30 PM EST Office Visit Orthopedic Surgery - [place] [address] [phone] Jordon Jaime MD [address] [address] Right hip pain (Primary Dx); Right knee [...] 10/11/2024 2:30 PM EST [facility] Date: 10/11/2024 Reason for visit: Follow-up right knee arthritis Blemish Remover: Serbian-son Eliazar HPI: Eliazar Victor is a 63 [...] oz) Height: 1.778 m (70 ) Well-appearing Serbian-speaking male, no apparent distress, and oriented. Accompanied [...] prior x-rays obtained 09/21 which now show vcga-ed-nzog arthritis involving the medial compartment. AP pelvis [...] 10 months ago. Due to the severe zxor-vs-negp nature of his arthritis I do not [...] no x-rays needed. Jordon Jaime MD [address] [address] W: [phone] F: [phone] Portions of this note were dictated utilizing the speech recognition software. Electronically Signed By: Jordon Jaime MD 10/11/2024 3:31 PM EST documented in this encounter Plan of Treatment Upcoming Encounters Date Type Department Care Team (Latest Contact Info) Description 12/12/2024 11:30 AM EDT Consult Orthopedic Surgery - [address] [phone] Payton Sandy NP [address] [address] 12/17/2024 10:00 AM EDT Hospital Encounter [facility] OR [address] [place] [phone] Jordon Jaime MD [address] [address] 12/17/2024 10:00 AM EDT - 12/17/2024 12:30 PM EDT Surgery [facility] OR [address] [place] [phone] Jordon Jaime MD [address] [address] RIGHT TOTAAL KNEE ARTHROPLASTY [[id number] (CPT??)] 01/02/2025 3:30 PM EDT Office Visit Orthopedic Surgery [place] [address] [phone] Jordon Jaime MD [address] [address] 01/03/2025 2:30 PM EDT Office Visit Orthopedic Surgery [place] [address] [phone] Jordon Jaime MD [address] [address] Scheduled Procedures Name Priority Associated Diagnoses Date/Ti [...] prior x-rays obtained 09/01/23 which now show ejkg-gm-ynsi arthritis involving the medial compartment. Jordon Jaime [...] Last Ordered Date First Orde red Date [id number] 2 10/11/2024 Case Request Count Last Ordered Date First Orde red Date CASE REQUEST OPERATING ROOM 1 10/11/2024 documented in this encounter Care Teams Sneller Hand Relationship Specialty Start Date End Date Physician, Pcp Unknown PCP - General 09/11/24 11/12/24 documented as of this encounter
--- OUTSIDE RECORDS SUMMARY | 2024-11-15 18:10 | XMS_ITS | Clinical Summary ---
Author Organization [facility] Address [address] [place] [address] [place] [address] Phone Care Team Providers Care Phone Technician Name Role Phone Sahara Hodges MD Primary Care Provider [phone] Allergies No known active allergies Medications No [...] age to complete this topic Care Teams Phone Technician Relationship Specialty Start Date End Date Sahara Hodges MD [address] [place], [place] PCP - General 09/08/20
== END 2024-11-15 17:38 | disposition home or self-care (01) ==
LOC: HO.HMCH 17:06
PROVIDERS: PCP Internal Medicine; Visit Provider Internal Medicine
DX: Z01.818 Encounter for other preprocedural examination (principal); R73.02 Impaired glucose tolerance (oral); M17.11 Unilateral primary osteoarthritis, right knee

== ENCOUNTER → 2024-11-15 17:06 | Outpatient (BNVA) | payer OTHER, SELFPAY | PROVIDERS: PCP Internal Medicine; Visit Provider Internal Medicine | DX: Z01.818 Encounter for other preprocedural examination (principal); R73.02 Impaired glucose tolerance (oral); M17.11 Unilateral primary osteoarthritis, right knee | CPT/HCPCS: 83036; 96127; 99212 ==

== ENCOUNTER 2024-12-06 14:24 | Outpatient (REF) | payer OTHER, SELFPAY ==
[2024-12-06 16:42] LABS: Urine Cytology See Pathology rpt
--- OUTSIDE RECORDS SUMMARY | 2024-12-06 17:56 | XMS_ITS | Encounter Summary ---
Author Organization [facility] Address [address] [place] [address] Care Team Providers Care Alternative Energy Technician Name Role Phone Sahara Arnett MD Primary Care Provider [phone] Encounter Details Date Type Department Care Team (Late st Contact Info) Description 12/03/2024 Telephone Orthopedic Surgery - [place] [address] [phone] Evelyn Segura, JOSE Social History Tobacco Use [...] 11:30 AM EDT Consult Orthopedic Surgery - [place] [address] [phone] Payton Sandy NP [address] [address] 12/17/2024 10:00 AM EDT Hospital Encounter [facility] Main OR [address] [place] [phone] Jordon Jaime MD [address] [address] 12/17/2024 10:00 AM EDT - 12/17/2024 12:30 PM EDT Surgery [facility] Main OR [address] [place] [phone] Jordon Jaime MD [address] [address] RIGHT TOTAAL KNEE ARTHROPLASTY [[id number] (CPT??)] 01/02/2025 3:30 PM EDT Office Visit Orthopedic Surgery [place] [address] [phone] Jordon Jaime MD [address] [address] 01/03/2025 2:30 PM EDT Office Visit Orthopedic [place] [address] [phone] Jordon Jaime MD [address] [address] Scheduled Procedures Name Priority Associated Diagnoses Date/Ti me ARTHROPLASTY KNEE TOTAL Post-traumatic osteoarthritis of right knee 12/17/2024 10:00 AM EDT documented as of this encounter Visit Diagnoses Not on filedocumented in this encounter Care Teams Alternative Energy Technician Relationship Specialty Start Date End Date Sahara Arnett MD 2 [facility] , [address] Physician Associ D/B/A: [facility] DESHAWN Navarrete PCP - General Internal Medicine 11/13/24 documented as of this encounter
--- OUTSIDE RECORDS SUMMARY | 2024-12-06 17:56 | XMS_ITS | Clinical Summary ---
Author Organization [facility] Address [address] [address] [place] [address] Phone Care Team Providers Care Chart Collector Name Role Phone Sahara Hodges MD Primary Care Provider [phone] Allergies No known active allergies Medications No [...] age to complete this topic Care Teams Chart Collector Relationship Specialty Start Date End Date Sahara Hodges MD [address] [place], [place] PCP - General 09/08/20
--- OUTSIDE RECORDS SUMMARY | 2024-12-06 17:56 | XMS_ITS | Clinical Summary ---
Author Organization 175 [facility] Address [address] [place] [address] Phone Care Team Providers Care Senior Mechanical Project Engineer Name Role Phone Sahara Arnett MD Primary Care Provider [phone] Allergies No known active allergies Medications tamsulosin [...] Care Team Description 12/03/2024 Telephone Orthopedic Surgery [facility] [address] [phone] Evelyn Segura RN 12/03/2024 Telephone Orthopedic Surgery [place] [address] [phone] Evelyn Segura RN 10/11/2024 2:30 PM EST Office Visit Orthopedic Surgery [facility] [address] [phone] Jordon Jaime MD Right knee pain (Primary [...] 12/12/2024 11:30 AM EDT Consult Orthopedic Surgery [facility] [address] [phone] Payton Sandy NP [address] [address] 12/17/2024 10:00 AM EDT Hospital Encounter [facility] Main OR [address] [place] [phone] Jordon Jaime MD [address] [address] 12/17/2024 10:00 AM EDT - 12/17/2024 12:30 PM EDT Surgery [facility] Main OR [address] [place] [phone] Jordon Jaime MD [address] [address] RIGHT TOTAAL KNEE ARTHROPLASTY [[id number] (CPT??)] 01/02/2025 3:30 PM EDT Office Visit Orthopedic Surgery [place] [address] [phone] Jordon Jaime MD [address] [address] 01/03/2025 2:30 PM EDT Office Visit Orthopedic [place] [address] [phone] Jordon Jaime MD [address] [address] Scheduled Procedures Name Priority Associated Diagnoses Date/Ti [...] prior x-rays obtained 09/01/23 which now show wzhr-id-mkwp arthritis involving the medial compartment. Jordon Jaime MD IMG XR PROCEDURES Fin al Result from Last 3 Months Insurance [facility] [employer] Member Subscriber Plan / Payer (Ef fective 2024-Present) Name:Eliazar Burgos Relation to Subscriber:Self Name:Eliazar Burgos Payer ID:[id number] Group ID:Not on file Type:Not on file Address: [place] [address] [place] [address] [employer] MEDICARE Member Subscriber Plan / Payer (Ef fective 2024-Present) Name:Eliazar Burgos Relation to Subscriber:Self Name:Eliazar Burgos Payer ID:[id number] Group ID:[id number] Type:Not on file Address: [address] [facility] [place] [address] Care Teams Senior Mechanical Project Engineer Relationship Specialty Start Date End Date Sahara Arnett MD [address] [place] [address] , [address] Physician Associ D/B/A: [facility] DESHAWN Navarrete PCP - General Internal Medicine 11/13/24
--- OUTSIDE RECORDS SUMMARY | 2024-12-06 17:56 | XMS_ITS | Encounter Summary ---
Author Organization [facility] Address [address] [place] [address] Care Team Providers Care Shift Nurse Manager Name Role Phone Sahara Arnett MD Primary Care Provider [phone] Reason for Visit * Reason Comments Osteoarthritis Follow-up Encounter Details Date Type Department Care Team ([facility] st Contact Info) Description 10/11/2024 2:30 PM EST Office Visit Orthopedic Surgery - [place] [address] [phone] Jordon Jaime MD [address] [address] Right knee pain (Primary Dx); Post-traumatic osteoarthritis [...] 10/11/2024 2:30 PM EST Orthopedic [facility] Date: 10/11/2024 Reason for visit: Follow-up right knee arthritis Ring Packer: Hungarian-son Eliazar HPI: Eliazar Victor is a 63 [...] oz) Height: 1.778 m (70 ) Well-appearing Hungarian-speaking male, no apparent distress, and oriented. Accompanied [...] prior x-rays obtained 09/21 which now show esoh-fh-jsln arthritis involving the medial compartment. AP pelvis [...] 10 months ago. Due to the severe ornr-mq-evbz nature of his arthritis I do not [...] appointment, no x-rays needed. Jordon Jaime MD [address] [place] [address] W: [phone] F: [phone] Portions of this note were dictated utilizing the speech recognition software. Electronically Signed By: Jordon Jaime MD 10/11/2024 3:31 PM EST documented in this encounter Plan of Treatment Upcoming Encounters Date Type Department Care Team (Latest Contact Info) Description 12/12/2024 11:30 AM EDT Consult Orthopedic Surgery - [address] [phone] Payton Sandy NP [address] [place] [address] 12/17/2024 10:00 AM EDT Hospital Encounter [facility] OR [address] [place] [phone] Jordon Jaime MD [address] [address] 12/17/2024 10:00 AM EDT - 12/17/2024 12:30 PM EDT Surgery [facility] OR [address] [place] [phone] Jordon Jaime MD [address] [address] RIGHT TOTAAL KNEE ARTHROPLASTY [[id number] (CPT??)] 01/02/2025 3:30 PM EDT Office Visit Orthopedic Surgery [place] [address] [phone] Jordon Jaime MD [address] [address] 01/03/2025 2:30 PM EDT Office Visit Orthopedic Surgery [place] [address] [phone] Jordon Jaime MD [address] [address] Scheduled Procedures Name Priority Associated Diagnoses Date/Ti [...] prior x-rays obtained 09/01/23 which now show qmco-vy-hnwf arthritis involving the medial compartment. Jordon Jaime [...] Last Ordered Date First Orde red Date [id number] 2 10/11/2024 Case Request Count Last Ordered Date First Orde red Date CASE REQUEST OPERATING ROOM 1 10/11/2024 documented in this encounter Care Teams Shift Nurse Manager Relationship Specialty Start Date End Date Sahara Arnett MD 2 [facility] , [address] [facility] Physician Associ D/B/A: [facility] DESHAWN Navarrete PCP - General Internal Medicine 11/13/24 documented as of this encounter
--- OUTSIDE RECORDS SUMMARY | 2024-12-06 17:56 | XMS_ITS | Encounter Summary ---
Author Organization [facility] Address [address] [place] [address] Care Team Providers Care Visual Display Manager Name Role Phone Sahara Arnett MD Primary Care Provider [phone] Encounter Details Date Type Department Care Team (Late st Contact Info) Description 12/03/2024 Telephone Orthopedic Surgery - [place] [address] [phone] Evelyn Segura, JOSE Social History Tobacco Use [...] 11:30 AM EDT Consult Orthopedic Surgery - [place] [address] [phone] Payton Sandy NP [address] [address] 12/17/2024 10:00 AM EDT Hospital Encounter [facility] Main OR [address] [place] [phone] Jordon Jaime MD [address] [address] 12/17/2024 10:00 AM EDT - 12/17/2024 12:30 PM EDT Surgery [facility] Main OR [address] [place] [phone] Jordon Jaime MD [address] [address] RIGHT TOTAAL KNEE ARTHROPLASTY [[id number] (CPT??)] 01/02/2025 3:30 PM EDT Office Visit Orthopedic Surgery [place] [address] [phone] Jordon Jaime MD [address] [address] 01/03/2025 2:30 PM EDT Office Visit Orthopedic [place] [address] [phone] Jordon Jaime MD [address] [address] Scheduled Procedures Name Priority Associated Diagnoses Date/Ti me ARTHROPLASTY KNEE TOTAL Post-traumatic osteoarthritis of right knee 12/17/2024 10:00 AM EDT documented as of this encounter Visit Diagnoses Not on filedocumented in this encounter Care Teams Visual Display Manager Relationship Specialty Start Date End Date Sahara Arnett MD 2 [facility] , [address] Physician Associ D/B/A: [facility] DESHAWN Navarrete PCP - General Internal Medicine 11/13/24 documented as of this encounter
== END 2024-12-06 14:25 | disposition home or self-care (01) ==
LOC: HO.LNP 14:24
PROVIDERS: PCP Internal Medicine; Visit Provider Nurse Practitioner Family
DX: N20.0 Calculus of kidney (principal); R31.9 Hematuria, unspecified
CPT/HCPCS: 51798; 81003; 88112; 99212

== ENCOUNTER 2024-12-06 14:24 | Outpatient (AMB) | payer MEDICARE, MEDICAID, SELFPAY ==
--- NOTE | 2024-12-06 14:37 | MHC.OFFVIS ---
Intake Visit Reasons: 6 month follow up/ PVR Intake Note: Patient presents today for follow up on: kidney stone, kidney lesion, retention Urology Med: Tamsulosin, Oxybutynin Antibiotic Allergy: None Blood Thinner: None PVR: 24ml's Poultry Pinner Required: Yes Accompanied by: Daughter Allergies No Known Allergies [No Known Allergies*] Allergy (Verified 12/06/24 15:08) Medication List - Last Reconciled 12/06/24 by DARWIN Coleman [bed rail As directed] diclofenac sodium 1% 4 grams topical QID lidocaine 5% (DermacinRx Lidocan) 1 patch topical DAILY PRN 30 days oxybutynin chloride ER 5 mg PO DAILY 90 days tamsulosin 0.4 mg PO BEDTIME 90 days [toilet safety rail As directed] walker (Ultra-Light Rollator misc) As directed HPI Comments Details: Eliazar is a very pleasant 64-year-old Maori-speaking male patient of Dr. Jorgensen who was accompanied by his daughter at today's office visit. He has a past medical history of nephrolithiasis, polyarticular osteoarthritis, depression, hyperparathyroidism, anxiety, chronic kidney disease, transaminitis, obesity, obstructive sleep apnea, and arthritis. He presents to the office today for follow-up of his lower urinary tract symptoms and nephrolithiasis. In discussion with the patient today he reports urologically he has been doing and feeling well. He denies having had any bothersome urinary issues or concerns since his last office visit here. However he does discusses upcoming right sided knee replacement at [facility] on 12/17. He reports compliance with oxybutynin and Flomax as prescribed. In office urinalysis results reviewed with the patient today. PVR 24 mL. He currently denies incontinence, nocturia, hematuria, dysuria, foul smelling urine, changes to urinary stream, flank pain, fever, and or chills. He is happy with his current voiding parameters. We discussed obtaining more recent renal imaging as in review of patient's chart it appears last CT 01-19 that noted bilateral nonobstructing calculi. Right kidney with 3 mm in left kidney with 8 mm nonobstructing stones. He otherwise offers no other issues or concerns at this time. Nephrolithiasis Has had elevated PTH secondary to hyperparathyroidism. Has been under management for this Imaging 12/18 bilateral small renal stones Laboratories - 01/18 Ca 9.4, normal vitamin-D, normal PTH, Cr 1.0 - 24 Hr 12/19 good volume, low calcium, low oxalate, good citrate PFSH Medical History Polyarticular osteoarthritis Mild major depression TACHO (acute kidney injury) Sepsis Hyperparathyroidism Total bilirubin, elevated LOR (generalized anxiety disorder) CKD (chronic kidney disease) Transaminitis Obese Anxiety associated with depression Impaired glucose tolerance ANA on CPAP Knee osteoarthritis Hypovitaminosis D Surgical History Hx of colonoscopy Family History Father Cancer Stroke Cirrhosis Mother Diabetes Social History Household Members: Spouse Housing: House Alcohol intake: never Patient Tobacco Use Status: Never used Tobacco e-Cigarette/Vaping Use: Never Used Second Hand Smoke Exposure: No service: No Current occupational status: disabled Cognitive needs: Yes Hearing needs: No Vision needs: Yes Review of Systems Const All systems reviewed & are unremarkable except as noted in HPI and below Physical Exam Const General: cooperative, healthy appearing, comfortable, no acute distress, well developed, alert and awake Nutritional Appearance: overweight Orientation/consciousness: patient oriented x3 Limitations: ambulation with cane HEENT Head: Yes normal to inspection and Yes No palpable skull fracture present Eyes General: appearance normal, both eyes and all related structures Neck Neck: Yes normal visual inspection Chest Chest palpation & inspection: normal inspection of the chest Resp Effort & Inspection: normal respiratory effort and able to speak in complete sentences Cardio Rate: regular rate GI Inspection: Yes normal to inspection General: Yes no CVA tenderness Back/Spine/Pelvis Back: no CVA tenderness Skin General skin exam: no rashes or lesions noted Neuro General: patient oriented x3 Extrem General: Yes normal to inspection Psych Appearance: grossly normal Mental Status: mental status grossly normal Speech and movement: Normal speech and movement present Affect: normal affect Attitude: cooperative Thought process: Normal thought process present Thought content: Normal thought content present Insight: Fair insight present (Psych) Judgement: Fair judgement present (Psych) Office Procedures Post Void Residual Post Residual Void Post Void Residual (PVR): 75713-[id number] Void Residual by ultrasound Results AMB Urinalysis, Automated UA Leukoctes 0 Luis/uL Last Edit by Vocationtigre Gillespie on 12/06/24 14:51 UA Nitrite Negative Last Edit by Vocationtigre Gillespie on 12/06/24 14:51 UA Urobilinogen 0.2 mg/dL Last Edit by Claudiae Jose Miguel on 12/06/24 14:51 UA Protein 0 mg/dL Last Edit by [employer] HedgeChattershavonne on 12/06/24 14:51 UA pH 6.0 Last Edit by [employer] on 12/06/24 14:51 UA Blood 10 Guido/uL Last Edit by Moonfryeshavonne on 12/06/24 14:51 UA Specific [place] 1.015 Last Edit by Moonfryeshavonne on 12/06/24 14:51 UA Ketone Last Edit by Moonfryeshavonne on 12/06/24 14:51 UA Bilirubin 0 mg/dL Last Edit by Moonfryeshavonne on 12/06/24 14:51 UA Glucose 0 mg/dL Last Edit by Roxro [employer]edna HedgeChattershavonne on 12/06/24 14:51 Results Reviewed Results Reviewed: Laboratory Last Values Urine pH (Auto) 6.0 12/06/24 14:39 Specific [place] (Auto) 1.015 12/06/24 14:39 Urine Protein (Auto) 0 mg/dL 12/06/24 14:39 Glucose (UA)(Auto) 0 mg/dL 12/06/24 14:39 Urine Blood (Auto) 10 Guido/uL 12/06/24 14:39 Urine Nitrite (Auto) Negative 12/06/24 14:39 Urine Bilirubin (Auto) 0 mg/dL 12/06/24 14:39 Urine Urobilinogen (Auto) 0.2 mg/dL 12/06/24 14:39 Leukocyte Esterase (Auto) 0 Luis/uL 12/06/24 14:39 Assessment & Plan Assessment & Plan (1) Renal calculi: Code(s): N20.0 - Calculus of kidney Category: Medical Plan In office urinalysis results reviewed with the patient today; as noted above. PVR 24 mL. Continue Flomax and oxybutynin as prescribed. He currently denies any bothersome urinary issues or concerns. He reports be happy with current voiding parameters. Will obtain renal ultrasound for surveillance monitoring of history of kidney stones. Will obtain PSA for further assessment evaluation. Follow-up in 6 months with imaging and lab to be completed prior and PVR at next office visit; or sooner with any issues, concerns, and or questions. Orders: Orders AMB Urinalysis Automated Today Z13.9 - Encounter for screening, unspecified US renal BI 6 Months N20.0 - Calculus of kidney AMB Post Void Residual by ultrasound Today R39.15 - Urgency of urination Prostate Specific Antigen Today N20.0 - Calculus of kidney Coding Level of Care Code Est Pt Level 3 (55530) Complex EM visit Add On G2211 Diagnoses Renal calculi N20.0 CPT Codes Post Residual Void - PVR CPT Code: 70391-Qhyq Void Residual by ultrasound ([id number])
--- OUTSIDE RECORDS SUMMARY | 2024-12-06 17:08 | XMS_ITS | Encounter Summary ---
Author Organization [facility] Address [address] [place] [address] Care Team Providers Care Coding Tech Name Role Phone Sahara Arnett MD Primary Care Provider [phone] Encounter Details Date Type Department Care Team (Late st Contact Info) Description 12/03/2024 Telephone Orthopedic Surgery - [place] [address] [phone] Evelyn Segura, JOSE Social History Tobacco Use Types Packs/Day Years Used Date Smoking Tobacco: Never Assessed Sex and Gender Information Value Date Recorded Sex Assigned at Not on file Legal Sex Male 11:05 AM EDT Gender Identity Not on file Sexual Orientation Not on file documented as of this encounter Plan of Treatment Upcoming Encounters Date Type Department Care Team (Latest Contact Info) Description 12/12/2024 11:30 AM EDT Consult Orthopedic Surgery - [place] [address] [phone] Payton Sandy NP [address] [address] 12/17/2024 10:00 AM EDT Hospital Encounter [facility] Main OR [address] [place] [phone] Jordon Jaime MD [address] [address] 12/17/2024 10:00 AM EDT - 12/17/2024 12:30 PM EDT Surgery [facility] OR [address] [place] [phone] Jordon Jaime MD [address] [address] RIGHT TOTAAL KNEE ARTHROPLASTY [63683 (CPT??)] 01/02/2025 3:30 PM EDT Office Visit Orthopedic [place] [address] [phone] Jordon Jaime MD [address] [address] 01/03/2025 2:30 PM EDT Office Visit Orthopedic [place] [address] [phone] Jordon Jaime MD [address] [address] Scheduled Procedures Name Priority Associated Diagnoses Date/Ti me ARTHROPLASTY KNEE TOTAL Post-traumatic osteoarthritis of right knee 12/17/2024 10:00 AM EDT documented as of this encounter Visit Diagnoses Not on filedocumented in this encounter Care Teams Coding Tech Relationship Specialty Start Date End Date Sahara Arnett MD 2 [facility] , [address] Physician Associ D/B/A: [facility] DESHAWN Navarrete PCP - General Internal Medicine 11/13/24 documented as of this encounter
--- OUTSIDE RECORDS SUMMARY | 2024-12-06 17:08 | XMS_ITS | Clinical Summary ---
Author Organization [facility] Address [address] [place] [address] Phone Care Team Providers Care Bull Driver Name Role Phone Sahara Arnett MD Primary Care Provider Allergies No known active allergies Medications tamsulosin [...] Post-traumatic osteoarthritis of right knee 09/29 Hyperparathyroidism (CMS/HCC V24) 10/11/2024 Elevated bilirubin 10/11/2024 LOR (generalized anxiety disorder) 10/11/2024 CKD (chronic kidney disease) 10/11/2024 IGT (impaired glucose tolerance) 10/11/2024 ANA on CPAP 10/11/2024 Low vitamin D level 10/11/2024 Resolved Problems Problem Noted Date Diagnosed Date Resolved Date Primary osteoarthritis of right knee 09/01/2023 10/11/2024 Acute internal derangement of right knee 09/01/2023 10/11/2024 Encounters Date Type Department Care Team Description 12/03/2024 Telephone Orthopedic Surgery [facility] [address] [phone] Evelyn Segura RN 12/03/2024 Telephone Orthopedic Surgery [place] [address] [phone] Evelyn Segura RN 10/11/2024 2:30 PM EST Office Visit Orthopedic Surgery [facility] [address] [phone] Jordon Jaime MD Right knee pain (Primary Dx); Post-traumatic osteoarthritis of right knee from Last [...] 12/12/2024 11:30 AM EDT Consult Orthopedic Surgery [facility] [address] [phone] Payton Sandy NP [address] [address] 12/17/2024 10:00 AM EDT Hospital Encounter [facility] Main OR [address] [place] [phone] Jordon Jaime MD [address] [address] 12/17/2024 10:00 AM EDT - 12/17/2024 12:30 PM EDT Surgery [facility] Main OR [address] [place] [phone] Jordon Jaime MD [address] [address] RIGHT TOTAAL KNEE ARTHROPLASTY [[id number] (CPT??)] 01/02/2025 3:30 PM EDT Office Visit Orthopedic Surgery [place] [address] [phone] Jordon Jaime MD [address] [address] 01/03/2025 2:30 PM EDT Office Visit Orthopedic [place] [address] [phone] Jordon Jaime MD [address] [address] Scheduled Procedures Name Priority Associated Diagnoses Date/Ti [...] Influencers of Health Screening 03/21/2024 Influenza Vaccine (Season Ended) 2025 06/06/2022, 06/21/2021, 05/11/2020, Additional history exists DTaP,Tdap,and Td Vaccines (2 - Td or Tdap) 07/21/2026 07/21/2016 RSV Immunization Adult Patients (1 - 1-dose 75+ series) 2033 HIB [...] age to complete this topic Meningococcal B Vaccine Aged Out No l onger eligible based on patient's age to complete [...] prior x-rays obtained 09/01/23 which now show uetr-te-dllk arthritis involving the medial compartment. Jordon Jaime MD IMG XR PROCEDURES Fin al Result from Last 3 Months Insurance [facility] [employer] OPT[employer] Member Subscriber Plan / Payer (Ef fective 2024-Present) Name:Eliazar Burgos Relation to Subscriber:Self Name:Eliazar Burgos Payer ID:[id number] Group ID:Not on file Type:Not on file Address: [place] [address] [place] [address] [employer] MEDICARE Member Subscriber Plan / Payer (Ef fective 2024-Present) Name:Eliazar Burgos Relation to Subscriber:Self Name:Eliazar Burgos Payer ID:[id number] Group ID:[id number] Type:Not on file Address: [address] [facility] [place] [address] Care Teams Bull Driver Relationship Specialty Start Date End Date Sahara Arnett MD [address] [place] [address] , [address] Physician Associ D/B/A: [facility] DESHAWN Navarrete PCP - General Internal Medicine 11/13/24
--- OUTSIDE RECORDS SUMMARY | 2024-12-06 17:09 | XMS_ITS | Encounter Summary ---
Author Organization [facility] Address [address] [place] [address] Care Team Providers Care Air Support Operations Operator Name Role Phone Sahara Arnett MD Primary Care Provider [phone] Encounter Details Date Type Department Care Team (Late st Contact Info) Description 12/03/2024 Telephone Orthopedic Surgery - [place] [address] [phone] Evelyn Segura, JOSE Social History Tobacco Use [...] 11:30 AM EDT Consult Orthopedic Surgery - [place] [address] [phone] Payton Sandy NP [address] [address] 12/17/2024 10:00 AM EDT Hospital Encounter [facility] Main OR [address] [place] [phone] Jordon Jaime MD [address] [address] 12/17/2024 10:00 AM EDT - 12/17/2024 12:30 PM EDT Surgery [facility] Main OR [address] [place] [phone] Jordon Jaime MD [address] [address] RIGHT TOTAAL KNEE ARTHROPLASTY [48815 (CPT??)] 01/02/2025 3:30 PM EDT Office Visit Orthopedic Surgery [place] [address] [phone] Jordon Jaime MD [address] [address] 01/03/2025 2:30 PM EDT Office Visit Orthopedic [place] [address] [phone] Jordon Jaime MD [address] [address] Scheduled Procedures Name Priority Associated Diagnoses Date/Ti me ARTHROPLASTY KNEE TOTAL Post-traumatic osteoarthritis of right knee 12/17/2024 10:00 AM EDT documented as of this encounter Visit Diagnoses Not on filedocumented in this encounter Care Teams Air Support Operations Operator Relationship Specialty Start Date End Date Sahara Arnett MD 2 [facility] , [address] Physician Associ D/B/A: [facility] DESHAWN Navarrete PCP - General Internal Medicine 11/13/24 documented as of this encounter
--- OUTSIDE RECORDS SUMMARY | 2024-12-06 17:09 | XMS_ITS | Clinical Summary ---
Author Organization [facility] Address [address] [place] [address] [facility] [place] [address] Phone Care Team Providers Care Administrative Sales Assistant Name Role Phone Sahara Hodges MD Primary Care Provider [phone] Allergies No known active allergies Medications No [...] Date Last Done Comments Pneumococcal Vaccine: 50+ Ye ars (1 of 2 - PCV) 1964 Colorectal Cancer Screening: Annual FOBT 2007 Colorectal Cancer Screening: Colonoscopy 2007 Colorectal Cancer Screening: Sigmoidoscopy 2007 Influenza Vaccine (Season Ended) 2025 Hepatitis B Vaccine Aged Out No longe r eligible based on patient's age to complete this topic Care Teams Administrative Sales Assistant Relationship Specialty Start Date End Date Sahara Hodges MD [address] [place], [place] PCP - General 09/08/20
--- OUTSIDE RECORDS SUMMARY | 2024-12-06 17:09 | XMS_ITS | Encounter Summary ---
Author Organization [facility] Address [address] [place] [address] Care Team Providers Care Tenant Relations Coordinator Name Role Phone Sahara Arnett MD Primary Care Provider [phone] Reason for Visit * Reason Comments Osteoarthritis Follow-up Encounter Details Date Type Department Care Team ([facility] st Contact Info) Description 10/11/2024 2:30 PM EST Office Visit Orthopedic Surgery - [place] [address] [phone] Jordon Jaime MD [address] [address] Right knee pain (Primary Dx); Post-traumatic osteoarthritis of right knee Social History [...] 10/11/2024 2:30 PM EST [facility] Date: 10/11/2024 Reason for visit: Follow-up right knee arthritis Evidence Technician: Khmer-son Eliazar HPI: Eliazar Victor is a 63 [...] oz) Height: 1.778 m (70 ) Well-appearing Khmer-speaking male, no apparent distress, and oriented. Accompanied [...] , CRP , RF , URICACID , SAHARA Imagin views weightbearing of the right knee obtained today including AP, Pineda, lateral, sunrise were reviewed. These show severe degenerative change involving medial compartment including complete joint space narrowing, small marginal space, subchondral sclerosis. Mild degenerative changeinvolving patellofemoral compartment. 10 degree tibial varus. Degenerative changes have progressed from prior x-rays obtained 09/21 which now show fyfs-ua-yhgs arthritis involving the medial compartment. AP pelvis [...] 10 months ago. Due to the severe ditk-fd-lbry nature of his arthritis I do not [...] appointment, no x-rays needed. Jordon Jaime MD [address] [place] [address] W: [phone] F: [phone] Portions of this note were dictated utilizing the speech recognition software. Electronically Signed By: Jordon Jaime MD 10/11/2024 3:31 PM EST documented in this encounter Plan of Treatment Upcoming Encounters Date Type Department Care Team (Latest Contact Info) Description 12/12/2024 11:30 AM EDT Consult Orthopedic Surgery - [address] [phone] Payton Sandy NP [address] [place] [address] 12/17/2024 10:00 AM EDT Hospital Encounter [facility] OR [address] [place] [phone] Jordon Jaime MD [address] [address] 12/17/2024 10:00 AM EDT - 12/17/2024 12:30 PM EDT Surgery [facility] OR [address] [place] [phone] Jordon Jaime MD [address] [address] RIGHT TOTAAL KNEE ARTHROPLASTY [[id number] (CPT??)] 01/02/2025 3:30 PM EDT Office Visit Orthopedic Surgery [place] [address] [phone] Jordon Jaime MD [address] [address] 01/03/2025 2:30 PM EDT Office Visit Orthopedic Surgery [place] [address] [phone] Jordon Jaime MD [address] [address] Scheduled Procedures Name Priority Associated Diagnoses Date/Ti [...] prior x-rays obtained 09/01/23 which now show yzdj-cd-ntra arthritis involving the medial compartment. Jordon Jaime MD IMG XR PROCEDURES Fin al Result documented in this encounter Visit Diagnoses Diagnosis Right knee pain- Primary Pain in joint, lower leg Post-traumatic osteoarthritis of right knee Post-traumatic osteoarthritis of right knee- Primary Post-traumatic osteoarthritis of right knee documented in this encounter Discontinued Medications Medication Sig Discontinue Reason Start Date End Da te celecoxib (CeleBREX) 200 mg capsule TOME KOFI CAPSULA DOS VECES AL LEO CON ALIMENTO [...] Last Ordered Date First Orde red Date [id number] 2 10/11/2024 Case Request Count Last Ordered Date First Orde red Date CASE REQUEST OPERATING ROOM 1 10/11/2024 documented in this encounter Care Teams Tenant Relations Coordinator Relationship Specialty Start Date End Date Sahara Arnett MD 2 [facility] , [address] [facility] Physician Associ D/B/A: [facility] DESHAWN Navarrete PCP - General Internal Medicine 11/13/24 documented as of this encounter
== END 2024-12-06 15:14 | disposition home or self-care (01) ==
LOC: HO.HUSH 14:25
PROVIDERS: PCP Internal Medicine; Visit Provider Nurse Practitioner Family
DX: N20.0 Calculus of kidney (principal); Z13.9 Encounter for screening, unspecified
CPT/HCPCS: 99213; G2211

== ENCOUNTER 2025-01-01 15:29 | Outpatient (AMB) | payer OTHER, SELFPAY ==
--- NOTE | 2025-01-01 15:12 | A.OFFVIS_ITS ---
Intake Visit Reasons: Follow Up - [phone] Inside B2B Sales Required: No Inside B2B Sales Name: Patients son translated Accompanied by: Son Allergies No Known Allergies [No Known Allergies*] Allergy (Verified 12/06/24 15:08) HPI Comments Details: 62 y/o male patient presents with his daughter for televeideo follow up of ANA on CPAP. Home sleep study (October,) result was severe ANA, AHI was 51.3 with nocturnal hypoxemia with average O2 sat 90%, lowest O2 sat 63%. 03/12/2022, In-lab PAP sleep titration study showed optimization of breathing and oxygenation at PAP setting of CPAP [id number]. Patient reports he is using his CPAP nightly with good effect. States he is sleeping well, and has good daytime energy with the use. Patient reports he is tolerating his CPAP well. He uses a small nasal pillow, which works perfectly for him. He reports he cleans and changes his CPAP supplies routinely. However, his Pap water chamber is broken, specifically states the pins the attached the water reservoir to the CPAP itself are broken. He does use distilled water in his CPAP water tank. [facility] Medical History (Updated 01/01/25 @ 17:04 by JELENA Larose) Polyarticular osteoarthritis Mild major depression TACHO (acute kidney injury) Sepsis Hyperparathyroidism Total bilirubin, elevated LOR (generalized anxiety disorder) CKD (chronic kidney disease) Transaminitis Obese Anxiety associated with depression Impaired glucose tolerance ANA on CPAP Knee osteoarthritis Hypovitaminosis D Surgical History (Updated 01/01/25 @ 15:13 by Morelia Hamilton CMA) Hx of right knee surgery Hx of colonoscopy Family History Father Cancer Stroke Cirrhosis Mother Diabetes Social History Household Members: Spouse Housing: House Alcohol intake: never Patient Tobacco Use Status: Never used Tobacco e-Cigarette/Vaping Use: Never Used Second Hand Smoke Exposure: No service: No Current occupational status: disabled Cognitive needs: Yes Hearing needs: No Vision needs: Yes Physical Exam Const General: cooperative and no acute distress Orientation/consciousness: patient oriented x3 Resp Effort & Inspection: normal respiratory effort and able to speak in complete sentences Neuro General: patient oriented x3 Cognition (Neuro): normal cognition Psych Appearance: grossly normal Mental Status: mental status grossly normal Speech and movement: Normal speech and movement present Affect: normal affect Attitude: cooperative Telehealth Telehealth Telehealth Platform: Recurly Location of provider rendering services: practice address Location of patient: address on file Patient Identification confirmed using: Name, : Yes Telehealth method: video Patient verbally consented to treatment: Yes Patient verbally consented to billing insurance company: Yes Patient informed of any privacy concerns related to visit: Yes Minutes spent on Phone/Video with Pt.: 7 Assessment & Plan Assessment & Plan (1) Severe obstructive sleep apnea: Code(s): G47.33 - Obstructive sleep apnea (adult) (pediatric) Category: Medical (2) CPAP (continuous positive airway pressure) dependence: Code(s): Z99.89 - Dependence on other enabling machines and devices Category: Medical Plan For ANA: Continue CPAP 13 cmH2O w/ EPR 3 nightly > 4 hours, as pt continues to have good clinical effect from use. We will request new CPAP supplies- [facility] has regional home care, contact information shared with patient's daughter. We will request recent PAP compliance report Clean CPAP machine and supplies routinely. Change CPAP supplies routinely. Use distilled water in CPAP water reservoir. Pt to contact us or [facility] with any questions or concerns. Pt to follow-up in 12 months or sooner prn. Coding Level of Care Code Tele Est Pt Level 3 (37766) Diagnoses Severe obstructive sleep apnea G47.33 CPAP (continuous positive airway pressure) dependence Z99.89
--- OUTSIDE RECORDS SUMMARY | 2025-01-01 16:37 | XMS_ITS | Clinical Summary ---
Author Organization 175 [facility] Address [address] [place] [address] Phone Care Team Providers Care Food Cashier Name Role Phone Sahara Arnett MD Primary Care Provider [phone] Allergies No known active allergies Medications tamsulosin (FLOMAX) 0.4 mg 24 hr capsule TOME 1 C PSULA POR V A ORAL AL ACOSTARSE 09/03/19 25 Active oxyBUTYnin XL (DITROPAN-XL) 5 mg 24 hr tablet TOME 1 TABLETA POR V A ORAL TODOS LOS D 10/02/19 25 Active acetaminophen (TYLENOL) 500 mg tablet Take 2 tablets (1,000 mg total) by mouth every 8 (eight) hours if needed for mild pain. 90 tablet 12/19/19 25 Active celecoxib (CeleBREX) 100 mg capsule Take 1 capsule (100 mg total) by mouth 2 (two) times a day. 84 capsule 12/19/19 25 Active aspirin 81 mg EC tablet Take 1 tablet (81 mg total) by mouth 2 (two) times a day. 84 tablet 12/19/19 25 025 Active cefadroxil 500 mg capsule Take 1 capsule (500 mg total) by mouth 2 (two) times a day. 14 capsule 12/19/19 25 Active ondansetron (ZOFRAN) 8 mg tablet Take 1 tablet (8 mg total) by mouth every 8 (eight) hours if needed for nausea or vomiting. 10 tablet 12/19/19 25 Active oxyCODONE (ROXICODONE) 5 mg immediate release tablet Take 1 tablet (5 mg total) by mouth every 4 (four) hours if needed for severe pain. Max Daily Amount: 30 mg 30 tablet 12/19/19 25 Active pantoprazole (PROTONIX) 40 mg EC tablet Take 1 tablet (40 mg total) by mouth 1 (one) time each day before breakfast. Do not crush, chew, or split. 42 tablet 12/19/19 25 025 Active saccharomyces boulardii (FLORASTOR) 250 mg capsule Take 1 capsule (250 mg total) by mouth 1 (one) time each day. 7 capsule 12/19/19 25 Active senna-docusate (PERICOLACE) 8.6-50 mg per tablet Take 2 tablets by mouth at bedtime. 60 tablet 12/19/19 25 Active traMADoL (ULTRAM) 50 mg tablet Take 1 tablet (50 mg total) by mouth every 6 (six) hours if needed for moderate pain. Max Daily Amount: 200 mg 20 tablet 12/19/19 25 Active acetaminophen (TYLENOL) 500 mg tablet Take 2 tablets (1,000 mg total) by mouth. 12/22/19 24 025 Discontinued Active Problems Problem Noted Date Diagnosed Date Status post total knee replacement 12/17/2024 Post-traumatic osteoarthritis of right knee 09/29 Hyperparathyroidism [...] Encounters Date Type Department Care Team Description 12/24/2024 Telephone Orthopedic Surgery [facility] [address] [phone] Evelyn Segura RN Post-op 12/19/2024 Telephone Orthopedic Surgery [facility] [address] [phone] Evelyn Segura, JOSE Post-op 12/17/2024 1:22 PM EDT Anesthesia Event [facility] Main OR [address] [place] [phone] Louise Sparks MD Hard, Shannon, KENNA 12/17/2024 12:30 PM EDT - 12/17/2024 3:00 PM EDT Surgery [facility] Main OR [address] [place] [phone] Jordon Jaime MD RIGHT TOTAL KNEE ARTHROPLASTY [01410 (CPT??)] 12/17/2024 10:34 AM EDT - 12/18/2024 10:22 AM EDT Hospital Encounter [facility] Surgical Unit [address] [place] [phone] Jordon Jaime MD Status post total right knee replacement (Primary Dx); Post-traumatic osteoarthritis of right knee Discharge Disposition: Home-Health Care [facility] [place] 12/12/2024 11:30 AM EDT Consult Orthopedic Surgery [facility] [address] [phone] Payton Sandy NP Post-traumatic osteoarthritis of right knee (Primary Dx); Pre-op evaluation 12/03/2024 Telephone Orthopedic Surgery [facility] [address] [phone] Evelyn Segura, JOSE 12/03/2024 Telephone Orthopedic Surgery [facility] [address] [address] Evelyn Segura, JOSE 10/11/2024 2:30 PM EST Office Visit Orthopedic Surgery [facility] [address] [phone] Jordon Jaime MD Right knee pain (Primary Dx); Post-traumatic osteoarthritis of right knee from Last 3 Months Surgical History Surgery Date Site/Laterality Comments KNEE ARTHROSCOPY W/ PARTIAL MEDIAL MENISCECTOMY Right Medical History Medical History Date Comments ANA on CPAP Urinary retention OA (osteoarthritis) Social History Tobacco Use Types Packs/Day Years Used Date Smoking Tobacco: Never Smokeless Tobacco: Never Tobacco Cessation:Counseling Given: Not Answered Interpersonal Safety Answer Date Record ed Physical Abuse 12/17/2024 Verbal Abuse 12/17/2024 Sex and Gender Information Value Date Recorded Sex Assigned at Male 12/17/2024 10:25 AM EDT Legal Sex Male 11:05 AM EDT Gender Identity Male 12/17/2024 10:25 AM EDT Sexual Orientation Straight 12/17/2024 10 :25 AM EDT Obstetrics History Last Filed Vital Signs Vital Sign Reading Time Taken Comments Blood Pressure 116/71 12/18/2024 8:00 AM EDT Pulse 65 12/18/2024 8:00 AM EDT Temperature 36.3 ??C (97.4 ??F) 12/18/2024 8:00 AM ED T Respiratory Rate 16 12/18/2024 8:00 AM EDT Oxygen Saturation 96% 12/18/2024 8:00 AM EDT Inhaled Oxygen Concentration - - Weight 109 kg (240 lb) 12/12/2024 12:15 PM EDT Height 177.8 cm (5' 10 ) 12/12/2024 12:15 PM EDT Body Mass Index 34.44 12/12/2024 12:15 PM EDT Plan of Treatment Upcoming Encounters Date Type Department Care Team (Late st Contact Info) Description 01/03/2025 2:30 PM EDT Office Visit Orthopedic Surgery - [place] [address] [phone] Jordon Jaime MD [address] [phone] Health Maintenance Due Date Last Done Comments Pneumococcal Vaccine: 50+ Years (1 of 1 - PCV) 2008 Zoster Vaccines (1 of 2) 2008 COVID-19 Vaccine (3 - Pfizer risk series) 02/02/2021 01/05/2021, 12/15/2020 Cholesterol Screening (Lipid Panel) 03/21/2024 Colorectal Cancer Screening: Colonoscopy 03/21/2024 Depression Screening 03/21/2024 Hepatitis C Screening 03/21/2024 Medicare Annual Wellness Visit 03/21/2024 Social Influencers of Health Screening 03/21/2024 Influenza Vaccine (Season Ended) 2025 06/06/2022, 06/21/2021, 05/11/2020, Additional history exists Falls Risk Assessment 12/18/2025 12/18/2024 DTaP,Tdap,and Td Vaccines (2 - Td or [...] on patient's age to complete this topic Medical Devices Implanted Type Area Band And Cuff Cutter Device Identifier Shelf Expiration Date Model / Serial / Lot Cement Bone Surg Simplex Radiopq - Snone - [id number] Implanted:Qty : 2 on 12/17/2024 by Jordon Jaime MD at [facility] Bone Cement Right: Knee [employer] 06/28/2027 [id number] / NONE / [id number] All Poly Patella Ve 38mm - Snone - [id number] Implanted:Qty : 1 on 12/17/2024 by Jordon Jaime MD at [facility] Joints Knee Right: Patella [employer] [id number] 03/08/2029 [id number] / NONE / [id number] Knee Psn Fem Ps Cmt Ccr Std Sz10 R - Snone - [id number] Implanted:Qty : 1 on 12/17/2024 by Jordon Jaime MD at [facility] Joints Knee Right: Knee [employer] [id number] 09/11/2031 [id number] / NONE / [id number] Stem Extension Tapered Cemented 43n90af - Snone - [id number] Implanted:Qty : 1 on 12/17/2024 by Jordon Jaime MD at [facility] Joints Knee Right: Knee [employer] [id number] 10/28/2034 [id number] 4 / NONE / [id number] Knee Psn Tib Scissors Grinder Stm 5 Deg Sz Hr - Snone - [id number] Implanted:Qty : 1 on 12/17/2024 by Jordon Jaime MD at [facility] Joints Knee Right: Knee [employer] [id number] 07/14/2033 [id number] / NONE / [id number] Knee Psn Asf Mlc 12mm Rt 10-12 Gh - Sn/A - [id number] Implanted:Qty : 1 on 12/17/2024 by Jordon Jaime MD at [facility] Joints Knee Right: Knee [employer] [id number] 06/13/2029 [id number] / N/A / [id number] Description:CPS (not MLC) Psn Cm Fm/Cm Tb/Cps/Ve Psn Pt Implanted:Qty : 1 on 12/17/2024 by Jordon Jaime MD at [facility] Right: Knee [employer] [id number] / N/A / N/A Procedures Procedure Name Priority Date/Time Associated Diagnosis Comments HEMOGLOBIN AND HEMATOCRIT Routine 12/18/2024 6:15 AM EDT BASIC METABOLIC PANEL Routine 12/18/2024 6:15 AM EDT XR KNEE 1-2 VIEWS RIGHT Routine 12/17/2024 4:38 PM EDT OXYGEN THERAPY, ADULT Routine 12/17/2024 4:20 PM EDT CPAP NIV Routine 12/17/2024 3:41 PM EDT TISSUE EXAM Routine 12/17/2024 2:18 PM EDT Post-traumatic osteoarthritis of right knee ANESTHESIA SPINAL BLOCK Routine 12/17/2024 1:44 PM EDT MO ARTHROPLASTY KNEE CONDYLE&PLATEAU MED/LAT CPTS W/WO PATELLA RESURFACING 12/17/2024 1:22 PM EDT Post-traumatic osteoarthritis of right knee Case Notes Michele Persona cemented PS + stem) 23 hour bed Special Needs TIME CHANGE VIA EMAIL FROM DR BARRERA REYES 12/12 POCT GLUCOSE BLOOD Routine 12/17/2024 10:47 AM EDT MRSA PCR Routine 12/12/2024 12:18 PM EDT Post-traumatic osteoarthritis of right knee Pre-op evaluation XR KNEE 4+ VIEWS RIGHT Routine 10/11/2024 2:41 PM EST Right knee pain from Last 3 Months Results * (ABNORMAL) Hemoglobin and hematocrit (12/18/2024 6:15 AM EDT) Hemoglobin 12.3(L) 13.5 - 17.5 g/dL LAB HEMETOLOGY METHOD 12/18/2024 6:58 AM EDT [facility] Hematocrit 37.2(L) 42.0 - 54.0 % LAB HEMETOLOGY METHOD 12/18/2024 6:58 AM EDT [facility] Blood Venous blood specimen / Unknown Venipuncture / Unknown 12/18/2024 6:15 AM EDT 12/18/2024 6:42 AM EDT us Payton Sandy NP LAB BLOOD ORDERABLES Fi nal Result [facility] [address] [place] [address], [place] [phone] * (ABNORMAL) Basic metabolic panel (12/18/2024 6:15 AM EDT) Sodium 135 133 - 145 mmol/L LAB CHEMISTRY METHOD 12/18/2024 7:[address] [facility] Potassium 4.4 3.5 - 5.5 mmol/L LAB CHEMISTRY METHOD 12/18/2024 7:[address] [facility] Chloride 104 96 - 110 mmol/L LAB CHEMISTRY METHOD 12/18/2024 7:[address] [facility] CO2 23 21 - 32 mmol/L LAB CHEMISTRY METHOD 12/18/2024 7:[address] [facility] Anion Gap 8 3 - 11 LAB CHEMISTRY METHOD 12/18/2024 7:[address] [facility] Glucose 151(H) 70 - 100 mg/dL LAB CHEMISTRY METHOD 12/18/2024 7:[address] [facility] BUN 17 5 - 25 mg/dL LAB CHEMISTRY METHOD 12/18/2024 7:[address] [facility] Creatinine 1.24 0.70 - 1.30 mg/dL LAB CHEMISTRY METHOD 12/18/2024 7:[address] [facility] eGFR 64 >=60 mL/min/1. 73m2 LAB CHEMISTRY METHOD 12/18/2024 7:[address] [facility] Comment:Calculation based on the??Chronic Kidney Disease Epidemiology Collaboration (CKD-EPI) equation refit??without adjustment for race. BUN/Creatinine Ratio 13.7 LAB CHEMISTRY METHOD 12/18/2024 7:[address] [facility] Calcium 8.5 8.5 - 10.5 mg/dL LAB CHEMISTRY METHOD 12/18/2024 7:[address] [facility] Blood Venous blood specimen / Unknown Venipuncture / Unknown 12/18/2024 6:15 AM EDT 12/18/2024 6:43 AM EDT Payton Sandy OVERWEAVER LAB BLOOD ORDERABLES Fi nal Result [facility] [address] [place] [address], * XR Knee 1-2 Views Right (12/17/2024 4:38 PM EDT) Anatomical Region Laterality Modality Lower Extremities, Knee Right Radiogra phic Imaging 12/17/2024 4:46 PM EDT Impressions 12/17/2024 4:47 PM EDT FINDINGS/IMPRESSION: Immediate post procedure radiograph status post total knee arthroplasty with expected postsurgical changes in the soft tissues. ??Anatomic alignment. ??Please see operative report for further details and recommendations. -------- FINAL REPORT -------- Dictated By: Meredith Keita Dictated Date: 12/17/2024 16:46 ET Assigned Physician: Meredith Keita Reviewed and Electronically Signed By: Meredith Keita Signed Date: 12/17/2024 16:47 ET Workstation ID: [id number] Transcribed By: Self Edit Transcribed Date: 12/17/2024 16:46 ET Narrative 12/17/2024 4:47 PM EDT XR KNEE 1-2 VIEWS RIGHT INDICATION: postoperative care TECHNIQUE: XR KNEE 1-2 VIEWS RIGHT COMPARISON: No priors available. Procedure Note Meredith Keita MD - 12/17/2024 XR KNEE 1-2 VIEWS RIGHT INDICATION: postoperative care TECHNIQUE: XR KNEE 1-2 VIEWS RIGHT COMPARISON: No priors available. IMPRESSION: FINDINGS/IMPRESSION: Immediate post procedure radiograph status post totalknee arthroplasty with expected postsurgical changes in the soft tissues.Anatomic alignment. Please see operative report for further details andrecommendations. -------- FINAL REPORT -------- Dictated By: Meredith Keita Dictated Date: 12/17/2024 16:46 ET Assigned Physician: Meredith Keita Reviewed and Electronically Signed By: Meredith Keita Signed Date: 12/17/2024 16:47 ET Workstation ID: [id number] Transcribed By: Self Edit Transcribed Date: 12/17/2024 16:46 ET us Payton Sandy OVERWEAVER IMG XR PROCEDURES Final Result * Tissue exam (12/17/2024 2:18 PM EDT) Final Diagnosis Joint, right knee (replacement): -OSTEOARTHRITIS, MARKED, WITH EBURNATION AND REMODELING. -Synovial hypertrophy and hyperplasia 12/21/2024 8:58 AM EDT [facility] Gross Description A. Knee, Right, total knee: Labeled right knee . Received in formalin is a 10.0 x 10.0 x 3.5 cm aggregate of shavings of hard, thornton-yellow bone, with minimal attached soft, thornton to pink tissue. The articular surfaces are granular and thornton-pink to eburnated and white. The articular surfaces are inked black. Collar Padder Blindstitch sections of bone and attached tissue are submitted in one cassette, three pieces, following decalcification. TS 12/21/2024 8:58 AM EDT [facility] Disclaimer Unless otherwise specified, all tissue is 10% NB formalin fixed and paraffin embedded. 12/21/2024 8:58 AM EDT [facility] Bone Structure of right knee region / Unknown 12/17/2024 2:18 PM EDT 12/18/2024 6:33 AM EDT us Jordon Jaime MD LAB PATHOLOGY ORDERAB LES Final Result [facility] [address] [place] [address], * Spinal Block (12/17/2024 1:44 PM EDT) Narrative Jessy Saldaña CRNA - 12/17/2024 1:44 PM EDT Jessy Saldaña CRNA ? 12/17/2024 ??3:03 PM Spinal Block Patient location during procedure: OR Start time: 12/17/2024 1:44 PM End time: 12/17/2024 1:44 PM Reason for block: primary anesthetic Staffing Performed: anesthesiologist Anesthesiologist: Louise Sparks MD Resident/WASH OPERATOR: Jessy Saldaña CRNA Performed by: Jessy Saldaña CRNA Authorized by: Louise Sparks MD ?? Spinal Block Patient position: sitting Prep: ChloraPrep Patient monitoring: heart rate and continuous pulse ox Approach: midline Location: L3-4 Injection technique: single-shot Needle Needle type: Pencan Needle gauge: 22 G Needle length: 3.5 in Assessment Sensory level: T4 Louise Sparks MD ANESTHESIA ORDERABLES Edited Res ult - Final * (ABNORMAL) POCT Glucose, blood (12/17/2024 10:47 AM EDT) [facility] Glucose POCT 218(H) 70 - 100 mg/dL 12/17/2024 10:49 AM EDT [facility] Blood Capillary blood specimen / Unknown 12/17/2024 10:47 AM EDT 12/17/2024 10:50 AM EDT Jordon Jaime MD LAB POINT OF CARE TEST DOCKED DEVICE UNSOLICITED RESULTS Final Result Performing Organization Address [facility]/ZIP Co de Phone Number [facility] [address] [place] [address], * MRSA molecular study (12/12/2024 12:18 PM EDT) [facility] MRSA Screen PCR Not Detected Not Detected LAB MICROBIOLOGY METHOD 12/12/2024 7:27 PM EDT [facility] Swab Both anterior nares / Unknown Non-blood Collection / Unknown 12/12/2024 12:18 PM EDT 12/12/2024 12:18 PM EDT Payton aSndy NP LAB MICROBIOLOGY - GENE RAL ORDERABLES Final Result Performing Organization Address City/[facility]/ZIP Co de Phone Number [facility] [address] [place] [address], [place] [phone] * XR Knee 4+ Views Right (10/11/2024 [...] prior x-rays obtained 09/01/23 which now show [id number] arthritis involving the medial compartment. Jordon Jaime MD IMG XR PROCEDURES Fin al Result from Last 3 Months Insurance [facility] MEDIC[facility] Member Subscriber Plan / Payer (Ef fective 2024-Present) Name:Eliazar Burgos Relation to Subscriber:Self Name:Eliazar Burgos Payer ID:[id number] Group ID:[id number] Type:Not on file Address: [place] [address] [place] [phone] Advance Directives Documents on File Type Date Recorded Patient Collar Padder Blindstitch Expl anation Power of Coremaker Supervisor 12/12/2024 2:36 PM [facility] * Full Code - Default (Latest Code Status on File) Date Activated Date Inactivated Comments 12/17/2024 10:40 AM 12/18/2024 12:27 PM This is or viky is used when code status has not been discussed with the patient, or code status is otherwise unknown/unconfirmed To update the patient's code status, place a code status order. Do not modify or discontinue any currently active code status orders. Care Teams Food Cashier Relationship Specialty Start Date End Date Sahara Arnett MD [address] [place] [address] , [address] [facility] D[facility]A: [facility] [place], [place] PCP - General Internal Medicine 11/13/24
--- OUTSIDE RECORDS SUMMARY | 2025-01-01 16:37 | XMS_ITS | Clinical Summary ---
Author Organization [facility] Address [address] [place] [address] Phone Care Team Providers Care Chemical Dependency Counselor Name Role Phone Sahara Hodges MD Primary Care Provider [phone] Allergies No known active allergies Medications No [...] Ye ars (1 of 2 - PCV) 1977 Colorectal Cancer Screening: Annual FOBT 2007 Colorectal Cancer Screening: Colonoscopy 2007 Colorectal Cancer Screening: Sigmoidoscopy 2007 Influenza Vaccine (Season Ended) 2025 Hepatitis B Vaccine Aged Out No longe r eligible based on patient's age to complete this topic Care Teams Chemical Dependency Counselor Relationship Specialty Start Date End Date Sahara Hodges MD [address] [place], [place] PCP - General 09/08/20
== END 2025-01-02 08:01 | disposition home or self-care (01) ==
LOC: HO.HSMS 15:30
PROVIDERS: PCP Internal Medicine; Visit Provider Nurse Practitioner Family
DX: G47.33 Obstructive sleep apnea (adult) (pediatric) (principal); Z99.89 Dependence on other enabling machines and devices
CPT/HCPCS: 99213

== ENCOUNTER → 2025-01-01 15:29 | Outpatient (BNVA) | payer OTHER, SELFPAY | PROVIDERS: PCP Internal Medicine; Visit Provider Nurse Practitioner Family ==

== ENCOUNTER 2025-02-28 15:00 | Outpatient (RCR) | payer OTHER, SELFPAY | END 2025-02-28 16:01 | disposition home or self-care (01) | LOC: HO.PT 15:00 | PROVIDERS: PCP Internal Medicine; Visit Provider Registered Nurse | DX: Z47.1 Aftercare following joint replacement surgery (principal); Z96.651 Presence of right artificial knee joint | CPT/HCPCS: 97110; 97140; 97161; 97530 ==

== ENCOUNTER 2025-03-27 06:05 | Outpatient (REF) | payer OTHER, SELFPAY ==
[2025-03-27 07:24] LABS: Anion Gap 12 (12-20); Blood Urea Nitrogen 13 mg/dL (9-16); Calcium 9.1 mg/dL (8.4-10.2); Carbon Dioxide 26 mmol/L (22-29); Chloride 106 mmol/L (96-108); Estimated Glomerular Filt Rate > 60; Potassium 4.2 mmol/L (3.3-5.1); Sodium 140 mmol/L (135-145)
[2025-03-27 07:45] LABS: Prostate Specific Antigen 0.91 ng/mL (<0.05-4.0)
[2025-03-27 08:02] LABS: Appearance Urine Turbid; Glucose Urine UA Negative (Negative); PH 5.5 (5.0-9.0); Specific Gravity - Urine 1.015 (1.005-1.025); UMIC TRIGGER UACC YES
[2025-03-27 12:24] LABS: Creatinine, mg/dL 39.46; Sodium, 24 Hr Urine 40.0 mmol/L
[2025-03-27 12:30] LABS: Creatinine, mg/dL 39.22; Uric Acid, mg/dL 14.2 mg/dL
[2025-03-27 14:05] LABS: Total Volume 24 Hour Urine 3025 mL
[2025-04-01 22:44] LABS: Calcium/Creatinine Ratio 38 mg/g creat (30-210)
[2025-04-02 07:28] LABS: 24hr Urine Total Volume 3025 mL; Citric Acid, 24hr Urine 224 mg/24 h (100-1300); Citric Acid/Creat Ratio 24U 172 mg/g creat (60-660); Creatinine, 24U 1.30 g/24 h (0.50-2.15)
[2025-04-06 04:34] LABS: 24hr Urine Total Volume 3025 mL; Oxalic Acid 24 Urine 30.5 mg/24 h (3.6-38.0)
== END 2025-03-27 06:06 | disposition home or self-care (01) ==
LOC: HO.LAB 06:05
PROVIDERS: Absent Provider Internal Medicine Hypertension Specialist; PCP Internal Medicine; Referring Provider Nurse Practitioner Family; Visit Provider Internal Medicine
DX: N20.0 Calculus of kidney (principal); R39.9 Unspecified symptoms and signs involving the genitourinary system
CPT/HCPCS: 36415; 80048; 81001; 81003; 82340; 82507; 83945; 84153; 84300; 84560

== ENCOUNTER 2025-04-10 08:22 | Outpatient (AMB) | payer MEDICARE, MEDICAID, SELFPAY ==
--- OUTSIDE RECORDS SUMMARY | 2025-04-10 08:31 | XMS_ITS | Clinical Summary ---
Author Organization [facility] Address [address] [place] [address] Phone Care Team Providers Care Education Program Associate Name Role Phone Sahara Hodges MD Primary Care Provider [phone] Allergies No known active allergies Medications No [...] Cancer Screening: Sigmoidoscopy 2007 Influenza Vaccine (#1) 2025 Hepatitis B Vaccine Aged Out No longe r eligible based on patient's age to complete this topic Care Teams Education Program Associate Relationship Specialty Start Date End Date Sahara Hodges MD [address] [place], [place] PCP - General 09/08/20
--- OUTSIDE RECORDS SUMMARY | 2025-04-10 08:31 | XMS_ITS | Clinical Summary ---
Author Organization 175 [facility] Address [address] [place] [address] Phone Care Team Providers Care Sheet Metal Worker Maintenance Name Role Phone Sahara Arnett MD Primary Care Provider [phone] Allergies No known active allergies Medications tamsulosin [...] mild pain. 90 tablet 12/19/19 25 Active ondansetron (ZOFRAN) 8 mg tablet Take 1 tablet (8 mg total) by mouth every 8 (eight) hours if needed for nausea or vomiting. 10 tablet 12/19/19 25 Active senna-docusate (PERICOLACE) 8.6-50 mg per tablet Take 2 tablets by mouth at bedtime. 60 tablet 12/19/19 25 Active oxyCODONE (ROXICODONE) 5 mg immediate release tabletIndicatio ns:Status post total right knee replacement Take 1 tablet (5 mg total) by mouth every 6 (six) hours if needed for severe pain. Max Daily Amount: 20 mg 15 tablet 02/01/20 25 Active traMADoL (ULTRAM) 50 mg tabletIndicatio ns:Status post total right knee replacement Take 1 tablet (50 mg total) by mouth every 8 (eight) hours if needed for moderate pain. Max Daily Amount: 150 mg 20 tablet 02/01/20 25 Active celecoxib (CeleBREX) 100 mg capsuleIndicati ons:Status post total right knee replacement TOME 1 CAPSULA POR VIA ORAL DOS VECES AL LEO CUANDO SEA NECESARIO PARA EL DOLOR 60 capsule 1 03/28/20 25 Active celecoxib (CeleBREX) 100 mg capsuleIndicati ons:Status post total right knee replacement Take 1 capsule (100 mg total) by mouth 2 (two) times a day if needed (Pain). 60 capsule 1 02/01/20 25 025 Discontinued Active Problems Problem Noted Date [...] Encounters Date Type Department Care Team Description 01/31/2025 3:30 PM EDT Office Visit Orthopedic Surgery - [address] [phone] Payton Sandy NP Status post total right knee replacement (Primary Dx) from Last 3 Months Surgical History Surgery [...] 63 12/18/2024 8:00 AM EDT Temperature 36.3 C (97.4 F) 12/18/2024 8:00 AM EDT Respiratory Rate 16 12/18/2024 8:00 AM EDT Oxygen Saturation 96% 12/18/2024 8:00 AM EDT Inhaled Oxygen Concentration - - Weight 109 kg (240 lb) 01/31/2025 3:20 PM EDT Height 177.8 cm (5' 10 ) 12/12/2024 12:15 PM EDT Body Mass Index 34.44 12/12/2024 12:15 PM EDT Plan of Treatment Upcoming Encounters Date Type Department Care Team (Late st Contact Info) Description 04/10/2025 10:00 AM EDT Office Visit Orthopedic Surgery - [place] [id number] [phone] Jordon Jaime MD [address] [address] Health Maintenance Due Date Last Done Comments Zoster Vaccines (1 of 2) 1977 Pneumococcal Vaccine: 50+ Years (1 of 1 - PCV) 2008 COVID-19 Vaccine (3 - Pfizer risk series) 02/02/2021 01/05/2021, 12/15/2020 Cholesterol Screening (Lipid Panel) 03/21/2024 Colorectal Cancer Screening: Colonoscopy 03/21/2024 Hepatitis C Screening 03/21/2024 Medicare Annual Wellness Visit 03/21/2024 Social Influencers of Health Screening 03/21/2024 Depression Screening 08/29/2024 Influenza Vaccine (#1) 2025 , 06/21/2021, 05/11/2020, Additional history exists Falls Risk [...] this topic Medical Devices Implanted Type Area Solid Waste Management Engineer Device Identifier Shelf Expiration Date Model / Serial / Lot Cement Bone Surg Simplex Radiopq - Snone - [id number] Implanted:Qty : 2 on 12/17/2024 by Jordon Jaime MD at [facility] Bone Cement Right: Knee [employer] 06/28/2027 [id number] / NONE / [id number] All Poly Patella Ve 38mm - Snone - [id number] Implanted:Qty : 1 on 12/17/2024 by Jordon Jaime MD at [facility] Joints Knee Right: Patella [employer] [id number] 03/08/2029 [id number] / NONE / [id number] Knee Psn Fem Ps Cmt Ccr Std Sz10 R - Snone - [id number] Implanted:Qty : 1 on 12/17/2024 by Jordon Jaime MD at [facility] Joints Knee Right: Knee [employer] [id number] 09/11/2031 [id number] / NONE / [id number] Stem Extension Tapered Cemented 05n88ur - Snone - [id number] Implanted:Qty : 1 on 12/17/2024 by Jordon Jaime MD at [facility] Joints Knee Right: Knee [employer] [id number] 10/28/2034 [id number] / NONE / [id number] Knee Psn Tib Metal Turner Stm 5 Deg Sz Hr - Snone - [id number] Implanted:Qty : 1 on 12/17/2024 by Jordon Jaime MD at [facility] Joints Knee Right: Knee [employer] [id number] 07/14/2033 [id number] / NONE / [id number] Knee Psn Asf Mlc 12mm Rt 10-12 Gh - Sn/A - [id number] Implanted:Qty : 1 on 12/17/2024 by Jordon Jaime MD at [facility] Joints Knee Right: Knee [employer] [id number] 06/13/2029 [id number] / N/A / [id number] Description:CPS (not MLC) Psn Cm Fm/Cm Tb/Cps/Ve Psn Pt Implanted:Qty : 1 on 12/17/2024 by Jordon Jaime MD at [facility] Right: Knee [employer] [id number] / N/A / N/A Insurance [facility] Member Subscriber Plan / Payer (Ef fective 2024-Present) Name:Eliazar Burgos Relation to Subscriber:Self Name:Eliazar Burgos Payer ID:[id number] Group ID:[id number] Type:Not on file Address: [place] [address] [place] [id number] Advance Directives Documents on File Type Date Recorded Patient Power Plant Manager Expl anation Power of Principal Gifts Officer 12/12/2024 2:36 PM HEALT H CARE PROXY [...] currently active code status orders. Care Teams Sheet Metal Worker Maintenance Relationship Specialty Start Date End Date Sahara Arnett MD [address] [place] [address] , [address] [facility] DESHAWN Navarrete PCP - General Internal Medicine 11/13/24
--- NOTE | 2025-04-10 08:37 | MHC.PC.OV ---
Intake Visit Reasons: SWV G0439 Snack Bar Cook Required: No Accompanied by: Self / Same As Patient Allergies No Known Allergies (No Known Allergies*) Allergy (Verified 12/06/24 15:08) Tobacco use date assessed: 11/15/24 Dental Screening Dental Screen Date: 11/15/24 [facility] Medical History (Updated 01/01/25 @ 17:04 by JELENA Larose) Polyarticular osteoarthritis Mild major depression TACHO (acute kidney injury) Sepsis Hyperparathyroidism Total bilirubin, elevated LOR (generalized anxiety disorder) CKD (chronic kidney disease) Transaminitis Obese Anxiety associated with depression Impaired glucose tolerance ANA on CPAP Knee osteoarthritis Hypovitaminosis D Surgical History Hx of right knee surgery Hx of colonoscopy Family History Father Cancer Stroke Cirrhosis Mother Diabetes Social History Household Members: Spouse Housing: House Alcohol intake: never Patient Tobacco Use Status: Never used Tobacco e-Cigarette/Vaping Use: Never Used Second Hand Smoke Exposure: No service: No Current occupational status: disabled Cognitive needs: Yes Hearing needs: No Vision needs: Yes Questionnaire Thrive Questionnaire Date Thrive assessed: 04/10/25 LOR-7 AMB Questionnaire LOR-7 Date LOR - 7 assessed: 04/10/25 Source: Developed by Drs. Desean Chang, Masha Drew, Nato Moncada and colleagues, with an educational lalitha from [employer]. Physical exam (Primary Care) Tobacco/Smoking Status: Tobacco use Status Tobacco use date assessed 11/15/24 11/15/24 17:14 Patient Tobacco Use Status Never used Tobacco 11/15/24 17:14 e-Cigarette/Vaping Use Never Used 11/15/24 17:14 Thrive Assessment: Date of Thrive Assessment Date Thrive assessed 11/15/24 11/15/24 17:14 Coding
--- NOTE | 2025-04-10 08:38 | A.OFFVIS_ITS ---
Intake Vital Signs 04/10/25 08:39 Height 5 ft 10 in Weight 236 lb 4 oz BMI 33.9 BP 142/86 H Blood Pressure Location Lt brachial Position Sitting Pulse 86 Pulse Source Pulse Oximeter Temp 97.1 F Temp Source Temporal Artery Scan Pulse Oximetry (%) 97 Oxygen Delivery Method Room Air Intake Visit Reasons: JOSE G0439 Intake Note: Patient is here for an Annual Wellness Visit. Exhaust And Muffler Repairer Required: Yes Exhaust And Muffler Repairer Services: Exhaust And Muffler Repairer Present Exhaust And Muffler Repairer Name: Juan (daughter) Information Interpreted: non-clinical & clinical (pt decline energy sales consultant service prefer daughter to translate) Weighmaster Lead: Weighmaster Lead Present (Spouse and daughter) Accompanied by: Spouse Allergies No Known Allergies (No Known Allergies*) Allergy (Verified 04/10/25 09:12) Medication List - Last Reconciled 04/10/25 by Sahara Arnett MD [bed rail As directed] diclofenac sodium 1% 4 grams topical QID lidocaine 5% (DermacinRx Lidocan) 1 patch topical DAILY PRN 30 days oxybutynin chloride ER 5 mg PO DAILY 90 days tamsulosin 0.4 mg PO BEDTIME 90 days [toilet safety rail As directed] walker (Ultra-Light Rollator misc) As directed HPI HPI Comments History of Present Illness Details Ppp handed to patient. [place] of care reviewed and updated. The patient is a 64-year-old male presenting for a Medicare wellness exam. The patient has a history of essential hypertension, for which he is currently being monitored and will have his blood pressure re-evaluated in three weeks. He also has chronic kidney disease, which is being managed with regular monitoring of renal function. The patient experiences occasional incontinence and has undergone knee surgery, which affects his mobility. There is a family history of cancer, cirrhosis, stroke, diabetes, and Alzheimer's disease, with his father having from liver cancer and his mother from diabetes and Alzheimer's disease. The patient does not smoke and has never smoked. He reports mild depression, with a PHQ-9 score of 4, indicating that he manages his depression well. His last colonoscopy was in 2015, and he is due for another in 2025. [facility] Medical History Polyarticular osteoarthritis Mild major depression TACHO (acute kidney injury) Sepsis Hyperparathyroidism Total bilirubin, elevated LOR (generalized anxiety disorder) CKD (chronic kidney disease) Transaminitis Obese Anxiety associated with depression Impaired glucose tolerance ANA on CPAP Knee osteoarthritis Hypovitaminosis D Surgical History Hx of right knee surgery Hx of colonoscopy Family History (Updated 04/10/25 @ 09:29 by Sahara Arnett MD) Father Cancer Stroke Cirrhosis Mother Diabetes Dementia Social History Household Members: Spouse Housing: House Alcohol intake: never Patient Tobacco Use Status: Never used Tobacco e-Cigarette/Vaping Use: Never Used Second Hand Smoke Exposure: No service: No Current occupational status: disabled Cognitive needs: Yes Hearing needs: No Vision needs: Yes Questionnaire Medicare Wellness Checkup What [age] 65-67 What gender do you identify with?: male During the past 4 weeks, how much have you been bothered by emotional problems such as feeling anxious, depressed, irritable, sad or downhearted, and blue?: not at all During the past 4 weeks, has your physical & emotional health limited your social activities with family, friends, neighbors, or groups?: not at all During the past 4 weeks, how much bodily pain have you generally had?: mild pain During the past 4 weeks, was someone available to help you if you needed & wanted help?: yes, as much as I wanted During the past 4 weeks, what was the hardest physical activity you could do for at least 2 minutes?: light Can you get to places out of walking distance without help? (For eg., can you travel alone on buses, taxis or drive your car?): No Can you go shopping for groceries or clothes without someone's help?: No Can you prepare your own meals?: No Can you do your housework without help?: No Because of any health problems, do you need the help of another person with your personal care needs such as eating, bathing, dressing or getting around the house?: Yes Can you handle your own money without help?: No During the past 4 weeks, how would you rate your health in general?: fair During the past 4 weeks how have things been going for you?: pretty well Are you having difficulties driving your car?: not applicable, I don't use a car Do you always fasten your seat belt when you are in a car?: yes, usually During past 4 weeks, have you been bothered by the following: never: Falling or dizzy when standing up, Sexual problems?, Trouble eating well?, Teeth or denture problems?, Problems using the telephone? and Tiredness or fatigue? Have you fallen 2 or more times in the past year?: No Are you afraid of falling?: Yes Are you a smoker?: no During the past 4 weeks, how many drinks of wine, beer, or other alcoholic beverages did you have?: no alcohol at all Do you exercise for about 20 minutes 3 or more times a week?: yes, all the time Have you been given information to help with the following?: yes: Hazards in your house that might hurt you? and yes: Keeping track of your medications? How often do you have trouble taking medicines the way you have been told to take them?: I do not have to take medicine How confident are you that you can control & manage most of your health problems?: not very confident What is your race?: or origin or descent Mini Mental State Exam (MMSE) Orientation What is the (year) (season) (date) (day) (month)?: year, season, date, day and month Where are we (state) (county) (town or city) (hospital) (floor)?: state, county, town or city, hospital/clinic and floor Registration Name of 3 unrelated objects clearly and slowly, then ask patient to repeat all 3 of them. (1st repeat determines score. Make sure they can repeat all three): object 1, object 2 and object 3 Attention & Calculation (CHOOSE ONE) Spell WORLD backwards (DLROW): 5 letters Recall Ask patient to repeat the 3 items from question #3.: object 1, object 2 and object 3 Language Show patient a wristwatch & ask what it is. Repeat for pencil.: watch and pencil Ask the patient to repeat the phrase 'No ifs, ands, or buts' after you.: correct Ask the patient to 'take a piece of paper with their right hand' 'fold paper in half' 'place paper on floor': take paper in right hand, fold paper in half and place paper on floor Print the sentence 'CLOSE YOUR EYES' on a piece. If patient actually closes eyes then score.: followed written direction Give patient a blank piece of paper & ask to write a sentence. Score if it contains a noun & verb.: sentence contains subject and verb Ask patient to copy figure of intersecting pentagons exactly. Score if all 10 angles & 2 intersects are included.: all 10 angles present & 2 are intersected Score Score: 30 Activity of Daily Living Bathing - sponge bath, tub bath or shower: receives no assistance (gets in/out by self, if usual bathing means Dressing - getting clothes from closets & drawers, including inner/outer garments & fasteners.: gets clothes & gets dressed without help, except for help tying shoes Toileting - going to the 'toilet room' for urine/bowel elimination & cleaning self/arranging clothes: receives help going to toilet room, cleaning self or arranging clothes Transfer: moves in & out of bed and chair without help (may use support object) Continence: has occasional 'accidents' Feeding: feeds self without help Total Score: 0 Information obtained from: patient Using telephone: independent Traveling: dependent Shopping: dependent Preparing meals: dependent Housework: dependent Taking medicine: needs assistance Managing money: dependent PHQ-9 Over the last 2 weeks, how often have you been bothered by any of the following problems? 1. Little interest or pleasure in doing things: several days 2. Feeling down, depressed, or hopeless: not at all 3. Trouble falling or staying asleep, or sleeping too much: more than half the days 4. Feeling tired or having little energy: several days 5. Poor appetite or overeating: not at all 6. Feeling bad about yourself - or that you are a failure or have let yourself or your family down: not at all 7. Trouble concentrating on things, such as reading the newspaper or watching television: not at all 8. Moving or speaking so slowly that other people could have noticed. Or the opposite - being so fidgety or restless that you have been moving around a lot more than usual: not at all 9. Thoughts that you would be better off or of hurting yourself in some way: not at all Total score: 4 Depression Screening Interpretation: Positive Depression Screening Follow-up: Existing condition and Follow-up Visit Requested Depression Screening Done: Yes 27003 - PHQ-9 Billing: Yes Source: Developed by Drs. Desean Chang, Nato Mccormick and colleagues, with an educational lalitha from [employer]. Thrive Questionnaire Date Thrive assessed: 11/15/24 LOR-7 AMB Questionnaire LOR-7 Date LOR - 7 assessed: 11/15/24 Source: Developed by Drs. Desean Chang, Nato Mccormick and colleagues, with an educational lalitha from [employer]. Review of Systems Const All systems reviewed & are unremarkable except as noted in HPI and below Card Denies chest pain at rest, Denies chest pain with activity, Denies edema, Denies irregular heart rhythm, Denies claudication, Denies dyspnea, Denies dyspnea on exertion, Denies orthopnea, Denies paroxysmal nocturnal dyspnea and Denies slow heart rate Resp Denies cough, Denies dyspnea and Denies dyspnea on exertion GI Denies abdominal pain, Denies change in bowel habits, Denies excessive flatus, Denies nausea and Denies vomiting Neuro Denies confusion Psych Denies confusion Physical Exam Vital Signs: Last Vital Signs Temp 97.1 F 04/10/25 08:39 Pulse 86 04/10/25 08:39 BP 142/86 H 04/10/25 08:39 Pulse Ox 97 04/10/25 08:39 Oxygen Delivery Method Room Air 04/10/25 08:39 BMI result Body Mass Index 33.9 Const General: No confusion Orientation/consciousness: patient oriented x3 and No confusion Resp Effort & Inspection: normal respiratory effort Auscultation: clear to auscultation bilaterally Cardio Jugular venous distension: no JVD Rate: regular rate Rhythm: regular rhythm Heart sounds: S1 normal heart sound present and S2 normal heart sound present Neuro General: patient oriented x3, no focal motor deficits and No confusion Extrem General: Yes full ROM Immunizations pneumoc 20-dion conj-dip cr(PF) 0.5 mL IM syringe Performing Provider: Sahara Arnett MD Performing Location: [facility] Administered by: Caro Mcknight LPN on 04/10/25 09:40 Dose Route Admin Location Dispensed Lot Number Expiration Date [facility] Behavioral Pediatrician 0.5 mL IM Left Deltoid 0.5 mL [id number] 03/28/26 7663-2516-15 [employer] Checkout Total Dispensed Waste 0.5 mL 0 % VIS Given Date VIS Provided VIS Publication Date 04/10/25 Single Vaccine 25 Eligibility Eligibility Date Funding Source Not VFC Eligible 04/10/25 Private Assessment & Plan Assessment & Plan (1) Encounter for Medicare annual wellness exam: Code(s): Z00.00 - Encounter for general adult medical examination without abnormal findings Plan The patient will continue monitoring his blood pressure, with a follow-up scheduled in three weeks to reassess his hypertension management. For chronic kidney disease, regular monitoring of renal function will continue, with recent labs indicating stable renal function. The patient is advised to manage his incontinence and follow up with his metrology specialist regarding his knee surgery and mobility issues. A pneumonia vaccination is planned for today, and the patient is reminded of the importance of regular screenings, including a colonoscopy due in 2025. Patient was informed and verbally consented to the use of an ambient scribe for clinic note documentation during this visit. Orders: Orders Lipid Panel Today E78.5 - Hyperlipidemia, unspecified Comprehensive [place]. Panel Fast Today R73.02 - Impaired glucose tolerance (oral) Pneumococcal 20 Immunization Today Z23 - Encounter for immunization Quality Reporting (2019) Depression/Bipolar (159/160/161/177) PHQ-9: Total score: 4 Coding Level of Care Code Medicare Subsequent (G0439) Diagnoses Encounter for Medicare annual wellness exam Z00.00 Additional Codes PHQ-9 - 01977 - PHQ-9 Billing: Yes ([id number]) Time Spent (min) 35
[2025-04-10 08:39] VITALS: BP 142/86; PULSE 86; TEMP 36.2; O2SAT 97; BMI 33.9
== END 2025-04-10 09:42 | disposition home or self-care (01) ==
LOC: HO.HMCH 08:22
PROVIDERS: PCP Internal Medicine; Visit Provider Internal Medicine
DX: Z00.00 Encounter for general adult medical examination without abnormal findings (principal); Z23 Encounter for immunization

== ENCOUNTER → 2025-04-10 08:22 | Outpatient (BNVA) | payer OTHER, SELFPAY | PROVIDERS: PCP Internal Medicine; Visit Provider Internal Medicine | DX: Z00.00 Encounter for general adult medical examination without abnormal findings (principal); I12.9 Hypertensive chronic kidney disease with stage 1 through stage 4 chronic kidney disease, or unspecified chronic kidney disease; N18.9 Chronic kidney disease, unspecified; R32 Unspecified urinary incontinence; F32.A Depression, unspecified; E78.5 Hyperlipidemia, unspecified; R73.02 Impaired glucose tolerance (oral); Z23 Encounter for immunization | CPT/HCPCS: 90471; 90677; 96127 ==

== ENCOUNTER 2025-04-11 10:39 | Outpatient (AMB) | payer OTHER, SELFPAY ==
--- NOTE | 2025-04-11 10:40 | HO.NEPHOV_ITS ---
Vital Signs 04/11/25 10:41 Height 5 ft 10 in Weight 236 lb BMI 33.9 BP 132/64 Blood Pressure Location Rt brachial Position Sitting Pulse 79 Pulse Source Pulse Oximeter Pulse Oximetry (%) 96 Oxygen Delivery Method Room Air Intake Visit Reasons: 6mon follow-up w/labs-Conf w/son Senior Electrical Engineer Required: Yes Senior Electrical Engineer Name: [phone] Allergies No Known Allergies (No Known Allergies*) Allergy (Verified 04/11/25 10:42) Medication List - Last Reconciled 04/11/25 by Tony Kramre MD [bed rail As directed] celecoxib 100 mg PO BID PRN diclofenac sodium 1% 4 grams topical QID lidocaine 5% (DermacinRx Lidocan) 1 patch topical DAILY PRN 30 days metronidazole 0.75% topical BID PRN oxybutynin chloride ER 5 mg PO DAILY 90 days oxycodone 5 mg PO Q6H PRN tamsulosin 0.4 mg PO BEDTIME 90 days [toilet safety rail As directed] walker (Ultra-Light Rollator misc) As directed HPI Comments Details: Middle-aged man with nephrolithiasis. Recently hospitalized for urinary retention. He had Palaicos for 4 weeks. He has a follow up ultrasound and urology appointment. He is under the episode of UTI with Citrobacter and treated Bactrim Accompanied by his son No new issues today [facility] Medical History Polyarticular osteoarthritis Mild major depression TACHO (acute kidney injury) Sepsis Hyperparathyroidism Total bilirubin, elevated LOR (generalized anxiety disorder) CKD (chronic kidney disease) Transaminitis Obese Anxiety associated with depression Impaired glucose tolerance ANA on CPAP Knee osteoarthritis Hypovitaminosis D Surgical History Hx of right knee surgery Hx of colonoscopy Family History Father Cancer Stroke Cirrhosis Mother Diabetes Dementia Social History Household Members: Spouse Housing: House Alcohol intake: never Patient Tobacco Use Status: Never used Tobacco e-Cigarette/Vaping Use: Never Used Second Hand Smoke Exposure: No service: No Current occupational status: disabled Cognitive needs: Yes Hearing needs: No Vision needs: Yes Physical Exam Vital Signs: Last Vital Signs Pulse 79 04/11/25 10:41 BP 132/64 04/11/25 10:41 Pulse Ox 96 04/11/25 10:41 Oxygen Delivery Method Room Air 04/11/25 10:41 BMI result Body Mass Index 33.9 Comfortable Neck supple no JVD. Lungs entry equal no rales. Heart S1-S2 heard no gallop or rub. Abdomen soft nontender. Neuro alert awake oriented. No asterixis. Extremities no edema. Results Reviewed Nephrology Results: Hgb, (14.0-18.0) 14.2 g/dl 11/08/24 WBC, (4.8-10.8) 9.2 X10*3/uL 11/08/24 Plt Count, (160-400) 142 X10*3/uL L 11/08/24 Sodium, (135-145) 140 mmol/L 03/27/25 Potassium, (3.3-5.1) 4.2 mmol/L 03/27/25 Chloride, (96-108) 106 mmol/L 03/27/25 Carbon Dioxide, (22-29) 26 mmol/L 03/27/25 BUN, (9-16) 13 mg/dL 03/27/25 Creatinine, (0.5-1.4) 1.11 mg/dL 03/27/25 Calcium, (8.4-10.2) 9.1 mg/dL 03/27/25 Urine Protein, (Neg-Trace) Negative mg/dL 03/27/25 Assessment & Plan Assessment & Plan (1) Renal calculi: Code(s): N20.0 - Calculus of kidney Category: Medical Plan: Multiple renal calculi in recent imaging. No obstruction Encouraged to stay on low-sodium diet Increase p.o. fluid intake to maintain a urine output of 2 L. Increase citrate intake /Lemonade No changes were made Interpretor was used Orders: Orders Basic Metabolic Panel 6 Months N20.0 - Calculus of kidney UA and rflx microscopic 6 Months N20.0 - Calculus of kidney Coding Level of Care Code Est Pt Level 4 (51024) Diagnoses Renal calculi N20.0
[2025-04-11 10:41] VITALS: BP 132/64; PULSE 79; O2SAT 96; BMI 33.9
--- OUTSIDE RECORDS SUMMARY | 2025-04-11 11:47 | XMS_ITS | Clinical Summary ---
Author Organization [facility] Address [address] [place] [address] Phone Care Team Providers Care Dobby Loom Chain Pegger Name Role Phone Sahara Hodges MD Primary Care Provider [phone] Allergies No known active allergies Medications No [...] age to complete this topic Care Teams Dobby Loom Chain Pegger Relationship Specialty Start Date End Date Sahara Hodges MD [address] [place], [place] PCP - General 09/08/20
== END 2025-04-11 10:55 | disposition home or self-care (01) ==
LOC: HO.HKA 10:40
PROVIDERS: PCP Internal Medicine; Visit Provider Internal Medicine Hypertension Specialist
DX: N20.0 Calculus of kidney (principal)
CPT/HCPCS: 99214

== ENCOUNTER → 2025-04-11 10:39 | Outpatient (BNVA) | payer OTHER, SELFPAY | PROVIDERS: PCP Internal Medicine; Visit Provider Internal Medicine Hypertension Specialist | DX: N20.0 Calculus of kidney (principal) | CPT/HCPCS: 99212 ==

== ENCOUNTER 2025-04-18 08:35 | Outpatient (AMB) | payer OTHER, SELFPAY ==
--- NOTE | 2025-04-18 09:19 | A.OFFVIS_ITS ---
Vital Signs 04/18/25 09:26 Height 5 ft 10 in Weight 238 lb 5.115 oz BMI 34.2 BP 132/84 Blood Pressure Location Lt brachial Position Sitting Pulse 67 Pulse Source Pulse Oximeter Pulse Oximetry (%) 98 Oxygen Delivery Method Room Air Intake Visit Reasons: oa Intake Note: Patient presents for OA follow up. Interventional Tech Required: Yes Interventional Tech Language: Credit Risk Management Director Services: Interventional Tech Offered & Declined Interventional Tech Name: Eliazar Cuba Information Interpreted: non-clinical & clinical Building Dismantler: Building Dismantler Present (Eliazar Cuba) Accompanied by: Son Allergies No Known Allergies (No Known Allergies*) Allergy (Verified 04/18/25 09:24) Medication List - Last Reconciled 04/18/25 by Zoie Bradley MD [bed rail As directed] celecoxib 100 mg PO BID PRN diclofenac sodium 1% 4 grams topical QID lidocaine 5% (DermacinRx Lidocan) 1 patch topical DAILY PRN 30 days metronidazole 0.75% topical BID PRN oxybutynin chloride ER 5 mg PO DAILY 90 days oxycodone 5 mg PO Q6H PRN tamsulosin 0.4 mg PO BEDTIME 90 days [toilet safety rail As directed] walker (Ultra-Light Rollator misc) As directed HPI Comments Details: Patient is a 64-year-old male with BPH on tamsulosin and polyarticular osteoarthritis (s/p right TKR 11/2024)here today for follow up Interval History: Patient last seen 10/23/2024 with me - Not on any rheum medications - Complained of: right shoulder pain bilateral medial elbow pain, hand pain and lateral left foot pain. - Received right shoulder steroid - Planning right knee replacement in November - Exercises for medial epicondylitis - Topical diclofenac 1% Today - On topical diclofenac 1% - Right shoulder improved - S/p right knee total knee replacement in November - Completed PT but still doing exercises - Epicondylitis improved - On celebrex 100mg bid prn, thinks this is helpful with all his pain Rheumatologic History: Polyarticular osteoarthritis Current Rheumatology Medication(s): Topical diclofenac 1% PFSH Medical History Polyarticular osteoarthritis Mild major depression TACHO (acute kidney injury) Sepsis Hyperparathyroidism Total bilirubin, elevated LOR (generalized anxiety disorder) CKD (chronic kidney disease) Transaminitis Obese Anxiety associated with depression Impaired glucose tolerance ANA on CPAP Knee osteoarthritis Hypovitaminosis D Surgical History Hx of right knee surgery Hx of colonoscopy Family History Father Cancer Stroke Cirrhosis Mother Diabetes Dementia Social History Household Members: Spouse Housing: House Alcohol intake: never Patient Tobacco Use Status: Never used Tobacco e-Cigarette/Vaping Use: Never Used Second Hand Smoke Exposure: No service: No Current occupational status: disabled Cognitive needs: Yes Hearing needs: No Vision needs: Yes Review of Systems Const Details: Review of Systems Constitutional: Denies fever, chills, weight loss ENT: Denies vision changes, eye pain or eye redness, dental caries, dry mouth GI: Denies nausea, vomiting, diarrhea, abdominal pain, change in BM Pulm: Denies SOB, COTTON, hemoptysis, wheezing Cards: Denies chest pain, palpitations Skin: Denies Raynaud's, rash, nail changes, photosensitivity, CRATE ICER: Denies headaches, weakness, paresthesias, recurrent falls MSK: as per HPI All other systems reviewed and are unremarkable except noted above Physical Exam Exam Exam: Vital signs reviewed Physical Examination CONSTITUITIONAL Patient alert and cooperative. Well appearing and in no apparent painful distress MSK Hands * Right Hand: Able to make a fist. No swelling or tenderness to palpation of these joints. * Left Hand: Able to make a fist. No swelling or tenderness to palpation of these joints. * Herbedens nodes noted bilaterally Wrists * Right Wrist: Full ROM. 70 degrees of wrist flexion, 80 degrees of wrist extension. No swelling or TTP * Left Wrist: Full ROM. 70 degrees of wrist flexion, 80 degrees of wrist extension. No swelling or TTP Elbows * Right Elbow: Full ROM. No swelling or TTP. No TTP of the medial and lateral epicondyles * Left Elbow: Full ROM. No swelling or TTP. No TTP of the medial and lateral epicondyles Shoulders * Right shoulder: Full ROM. No swelling noted. No TTP of the AC joint or posterior shoulder. TTP of the subacromial bursa * Left shoulder: Full ROM. No swelling noted. No TTP of the AC joint, subacromial bursa or posterior shoulder Knees * Right knee: Decreased ROM. Swelling and warmth with mild TTP of the joint line. No TTP of the pes anserine * Left knee: Full ROM. No swelling noted. No TTP of the knee joint lie or pes anserine bursa. Ankles * Right ankle: Good ankle dorsiflexion and plantar flexion. No swelling. No TTP of the ankle joint * Left ankle: Good ankle dorsiflexion and plantar flexion. No swelling. No TTP of the ankle joint Feet * Right foot: Negative squeeze test * Left foot: Negative squeeze test Tender points? * No tenderness to palpation of the bilateral trapezius, supraspinatus, anterior costochondral junctions, bilateral suboccipital muscle insertions SKIN No rashes Vital Signs: Last Vital Signs Pulse 67 04/18/25 09:26 BP 132/84 04/18/25 09:26 Pulse Ox 98 04/18/25 09:26 Oxygen Delivery Method Room Air 04/18/25 09:26 BMI result Body Mass Index 34.2 Results Reviewed Results Reviewed: Laboratory Tests 03/14/24 11/08/24 03/27/25 Unknown 06:27 06:30 Sodium 140 Potassium 4.2 Chloride 106 Anion Gap 12 BUN 13 Creatinine 1.11 AST 19 53 H ALT 19 54 H Assessment & Plan Assessment & Plan (1) Polyarticular osteoarthritis: Code(s): M15.9 - Polyosteoarthritis, unspecified Category: Medical Plan: #Polyarticular OA Patient is a 64-year-old male with polyarticular osteoarthritis. Doing well overall Discussed continuing celebrex 100mg bid prn with renal and LFT monitoring Plan - Celebrex 100g bid prn - RTC 6 months - Labs before visit: CMP (2) Encounter for monitoring NSAID therapy: Code(s): Z51.81 - Encounter for therapeutic drug level monitoring; Z79.1 - neon sign erector (current) use of non-steroidal anti-inflammatories (nsaid) Plan: #Long-term Use of NSAIDs Discussed with patient the benefits and risk of NSAIDs for managing the rheumatic condition Benefits include: - Reduced the pain, improved mobility, and increased participation in activities Risks include: - GI upset, potential also worsening or formation (especially in patients > 65 years old) Recommended using proton pump inhibitors (PPIs) for the duration of NSAID use to reduce the risk of gastric ulcers Plan I spent 20 minutes reviewing the record and labs, taking a history, examining the patient, discussing the treatment plan and documenting in the medical record Orders: Orders Complete Blood Count Auto Diff 6 Months Z79.899 - Other half-way (current) drug therapy Comprehensive Met. Panel 6 Months Z79.899 - Other childcare center director (current) drug therapy Medications: New celecoxib 100 mg PO BID PRN 60 caps 5RF pain M17.11 - Unilateral primary osteoarthritis, right knee Discontinued diclofenac sodium 1% apply to bilateral hands 4 times a day Discontinued Reason: Doctor's Order 4 grams topical QID 100 grams 6RF M19.049 - Primary osteoarthritis, unspecified hand Coding Level of Care Code Est Pt Level 3 (81276) Diagnoses Polyarticular osteoarthritis M15.9 Encounter for monitoring NSAID therapy Z51.81; Z79.1
[2025-04-18 09:26] VITALS: BP 132/84; PULSE 67; O2SAT 98; BMI 34.2
--- OUTSIDE RECORDS SUMMARY | 2025-04-18 09:31 | XMS_ITS | Clinical Summary ---
Author Organization [address] [facility] Address [address] [place] [address] Phone Care Team Providers Care Freight Dispatcher Name Role Phone Sahara Arnett MD Primary Care Provider [phone] Allergies No known active allergies Medications tamsulosin [...] at bedtime. 60 tablet 12/19/19 25 Active celecoxib (CeleBREX) 200 mg capsuleIndicati ons:Status post total right knee replacement,Chela n and swelling of right knee Take 1 capsule (200 mg total) by mouth 2 (two) times a day with meals. 60 each 2 04/10/20 25 Active oxyCODONE (ROXICODONE) 5 mg immediate release tabletIndicatio ns:Status post total right knee replacement Take 1 tablet (5 mg total) by mouth every 6 (six) hours if needed for severe pain. Max Daily Amount: 20 mg 15 tablet 02/01/20 25 025 Discontinued celecoxib (CeleBREX) 100 mg capsuleIndicati ons:Status post total right knee replacement Take 1 capsule (100 mg total) by mouth 2 (two) times a day if needed (Pain). 60 capsule 1 02/01/20 25 025 Discontinued traMADoL (ULTRAM) 50 mg tabletIndicatio ns:Status post total right knee replacement Take 1 tablet (50 mg total) by mouth every 8 (eight) hours if needed for moderate pain. Max Daily Amount: 150 mg 20 tablet 02/01/20 25 025 Discontinued celecoxib (CeleBREX) 100 mg capsuleIndicati ons:Status post total right knee replacement TOME 1 CAPSULA POR VIA ORAL DOS VECES AL LEO CUANDO SEA NECESARIO PARA EL DOLOR 60 capsule 1 03/28/20 025 Discontinued Active Problems Problem Noted Date Diagnosed Date Status post total knee replacement 12/17/2024 Hyperparathyroidism (CMS/HCC V24) 10/11/2024 Elevated bilirubin 10/11/2024 LOR (generalized anxiety disorder) 10/11/2024 CKD (chronic kidney disease) 10/11/2024 IGT (impaired glucose tolerance) 10/11/2024 ANA on CPAP 10/11/2024 Low vitamin D level 10/11/2024 Resolved Problems Problem Noted Date Diagnosed Date Resolved Date Post-traumatic osteoarthritis of right knee 10/11/2024 04/10/2025 Primary osteoarthritis of right knee 09/01/2023 10/11/2024 Acute internal derangement of right knee 09/01/2023 10/11/2024 Encounters Date Type Department Care Team Description 04/10/2025 10:00 AM EDT Office Visit Orthopedic Surgery [address] [phone] Jordon Jaime MD Status post total right knee replacement (Primary Dx); Post-operative state; Pain and swelling of right knee 01/31/2025 3:30 PM EDT Office Visit Orthopedic Surgery [place] [address] [id number] Payton Sandy NP Status post total right [...] Care Team (Late st Contact Info) Description 01/08/2026 10:30 AM EDT Office Visit Orthopedic Surgery [facility] [address] [id number] Jordon Jaime MD [address] [address] Health Maintenance Due Date Last Done Comments Zoster Vaccines (1 of 2) 1979 COVID-19 Vaccine (3 - Pfizer risk series) 02/02/2021 01/05/2021, 12/15/2020 Cholesterol Screening (Lipid Panel) 03/21/2024 Colorectal Cancer Screening: Colonoscopy 03/21/2024 Hepatitis C Screening 03/21/2024 Medicare Annual Wellness Visit 03/21/2024 Social Influencers of Health Screening 03/21/2024 Depression Screening 08/29/2024 Influenza Vaccine (#1) 2025 2, 06/21/2021, 05/11/2020, Additional history exists Falls Risk Assessment 12/18/2025 12/18/2024 DTaP,Tdap,and Td Vaccines (2 - Td or Tdap) 07/21/2026 07/21/2016 RSV Immunization Adult Patients (1 - 1-dose 75+ series) 2033 Pneumococcal Vaccine: 50+ Years Completed 04/10/2025 HIB Vaccines Aged Out No longer eligi [...] this topic Medical Devices Implanted Type Area Project Eng Device Identifier Shelf Expiration Date Model / Serial / Lot Cement Bone Surg Simplex Radiopq - Snone - [id number] Implanted:Qty : 2 on 12/17/2024 by Jordon Jaime MD at [facility] Bone Cement Right: Knee [employer] 06/28/2027 [id number] / NONE / [id number] All Poly Patella Ve 38mm - Snone - [id number] Implanted:Qty : 1 on 12/17/2024 by Jordon Jaime MD at [facility] Joints Knee Right: Patella [employer] [id number] 03/08/2029 [id number] / NONE / [id number] Knee Psn Fem Ps Cmt Ccr Std Sz10 R - Snone - [id number] Implanted:Qty : 1 on 12/17/2024 by Jordon Jaime MD at [facility] Joints Knee Right: Knee [employer] [id number] 09/11/2031 [id number] / NONE / [id number] Stem Extension Tapered Cemented 72a54et - Snone - [id number] Implanted:Qty : 1 on 12/17/2024 by Jordon Jaime MD at [facility] Joints Knee Right: Knee [employer] [id number] 10/28/2034 [id number] / NONE / [id number] Knee Psn Tib Projects Manager Stm 5 Deg Sz Hr - Snone - [id number] Implanted:Qty : 1 on 12/17/2024 by Jordon Jaime MD at [facility] Joints Knee Right: Knee [employer] [id number] 07/14/2033 [id number] / NONE / [id number] Knee Psn Asf Mlc 12mm Rt 10-12 Gh - Sn/A - [id number] Implanted:Qty : 1 on 12/17/2024 by Jordon Jaime MD at [facility] Joints Knee Right: Knee [employer] [id number] 06/13/2029 [id number] / N/A / [id number] Description:CPS (not MLC) Psn Cm Fm/Cm Tb/Cps/Ve Psn Pt Implanted:Qty : 1 on 12/17/2024 by Jordon Jaime MD at [facility] Right: Knee [employer] [id number] / N/A / N/A Procedures Procedure Name Priority Date/Time Associated Diagnosis Comments XR KNEE 3 VIEWS RIGHT Routine 04/10/2025 10:07 AM EDT Post-operative state Status post total right knee replacement from Last 3 Months Results * XR Knee 3 Views Right (04/10/2025 10:07 AM EDT) Anatomical Region Laterality Modality Lower Extremities, Knee Right Computed Radiography Narrative 04/11/2025 8:00 AM EDT 3 views of the right knee obtained today including AP, lateral, sunrise were reviewed. These show right cemented posterior stabilized total knee replacement with patellar resurfacing and short cemented tibial stem. Implants appear well-fixed and well-positioned. No progressive or circumferential radiolucencies, patella tracking centrally. Mild to moderate effusion, reduced from 2-week postoperative x-rays. Jordon Jaime MD IMG XR PROCEDURES Fin al Result from Last 3 Months Insurance [facility] Member Subscriber Plan / Payer (Ef fective 2024-Present) Name:Dimitrios VictorEliazar velazco Relation to Subscriber:Self Name:Eliazar Burgos Payer ID:[id number] Group ID:[id number] Type:Not on file Address: [place] [address] [place] [id number] Advance Directives Documents on File Type Date Recorded Patient Aircraft Avionics Technician Expl anation Power of X Ray Examiner Of Aircraft 12/12/2024 2:36 PM [facility] PROXY [...] currently active code status orders. Care Teams Freight Dispatcher Relationship Specialty Start Date End Date Sahara Arnett MD [address] [place] [address] , [address] [facility] [place], [place] PCP - General Internal Medicine 11/13/24
--- OUTSIDE RECORDS SUMMARY | 2025-04-18 09:32 | XMS_ITS | Clinical Summary ---
Author Organization [facility] Address [address] [place] [address] Phone Care Team Providers Care Laundry Operator Finishing Name Role Phone Sahara Hodges MD Primary Care Provider [phone] Allergies No known active allergies Medications No [...] age to complete this topic Care Teams Laundry Operator Finishing Relationship Specialty Start Date End Date Sahara Hodges MD [address] [place], [place] PCP - General 09/08/20
== END 2025-04-18 09:49 | disposition home or self-care (01) ==
PROVIDERS: PCP Internal Medicine; Visit Provider Student in an Organized Health Care Education/Training Program
DX: M15.9 Polyosteoarthritis, unspecified (principal); Z51.81 Encounter for therapeutic drug level monitoring; Z79.1 Long term (current) use of non-steroidal anti-inflammatories (NSAID)
CPT/HCPCS: 99213

== ENCOUNTER → 2025-04-18 08:35 | Outpatient (BNVA) | payer OTHER, SELFPAY | PROVIDERS: PCP Internal Medicine; Visit Provider Student in an Organized Health Care Education/Training Program | DX: M17.11 Unilateral primary osteoarthritis, right knee (principal); Z79.899 Other long term (current) drug therapy; Z51.81 Encounter for therapeutic drug level monitoring; Z79.1 Long term (current) use of non-steroidal anti-inflammatories (NSAID) | CPT/HCPCS: 99212 ==

== ENCOUNTER 2025-06-04 13:55 | Outpatient (REF) | payer OTHER, SELFPAY ==
--- NOTE | ~2025-06-04 | US_ITS ---
EXAMINATION: US KIDNEY BILATERAL HISTORY: N20.0 - Calculus of kidney TECHNIQUE: Real-time grayscale ultrasound imaging of the kidneys was performed and images were reviewed. COMPARISON: Correlation is made with a CT of the abdomen and pelvis without contrast dated 01/10/2024. FINDINGS: Right kidney: The right kidney measures 11.8 x 4.8 x 7.0 cm. Renal parenchymal echotexture and thickness are normal. There are no masses. There is a nonobstructing calculus in the interpolar region measuring 15 x 11 x 10 mm. There is no hydronephrosis. Left Kidney: The left kidney measures 12.3 x 4.7 x 4.9 cm. Renal parenchymal echotexture and thickness are normal. There is a 12 x 11 x 10 mm upper pole cyst and an 8 x 7 x 9 mm lower pole cyst. There is a nonobstructing calculus at the lower pole measuring 3 x 2 x 6 mm. There is no hydronephrosis. US/US renal BI IMPRESSION: Bilateral nephrolithiasis as described. Electronically signed by: Desean Quick MD 06/04/2025 03:01 PM EDT
--- OUTSIDE RECORDS SUMMARY | 2025-06-04 17:10 | XMS_ITS | Clinical Summary ---
Author Organization [facility] Address [address] [place] [address] Phone Care Team Providers Care Tour Bus Driver Name Role Phone Sahara Hodges MD Primary Care Provider [phone] Allergies No known active allergies Medications No [...] age to complete this topic Care Teams Tour Bus Driver Relationship Specialty Start Date End Date Sahara Hodges MD [address] [place], [place] PCP - General 09/08/20
== END 2025-06-04 13:56 | disposition home or self-care (01) ==
LOC: HO.US 13:55
PROVIDERS: PCP Internal Medicine; Visit Provider Nurse Practitioner Family
DX: N20.0 Calculus of kidney (principal)
CPT/HCPCS: 76775

== ENCOUNTER → 2025-06-04 13:56 | Outpatient (BNV) | payer OTHER, SELFPAY | PROVIDERS: PCP Internal Medicine; Visit Provider Radiology Diagnostic Radiology | DX: N20.0 Calculus of kidney (principal) | CPT/HCPCS: 76775 ==

== ENCOUNTER 2025-06-13 15:44 | Outpatient (AMB) | payer OTHER, SELFPAY ==
--- NOTE | 2025-06-13 15:55 | A.OFFVIS_ITS ---
Intake Visit Reasons: 6m/PSA/PVR/US Intake Note: Patient is present for 6M/PSA/US/PVR Urology Medication:TAMSULOSIN,OXYBUTYNIN CHLORIDE Antibiotic Allergy:NONE Blood Thinner:NONE Last PVR:24ML'S Todays PVR:29ML'S Content Analyst Required: No Allergies No Known Allergies (No Known Allergies*) Allergy (Verified 06/13/25 20:39) Medication List - Last Reconciled 06/13/25 by JELENA Coleman-BC [bed rail As directed] celecoxib 100 mg PO BID PRN lidocaine 5% (DermacinRx Lidocan) 1 patch topical DAILY PRN 30 days metronidazole 0.75% topical BID PRN oxybutynin chloride ER 5 mg PO DAILY 90 days oxycodone 5 mg PO Q6H PRN [Shower Bench with back support As directed] tamsulosin 0.4 mg PO BEDTIME 90 days [toilet safety rail As directed] walker (Ultra-Light Rollator misc) As directed HPI Comments Details: Eliazar is a very pleasant 64-year-old Mohawk-speaking male patient of Dr. Jorgensen who was accompanied by his son at today's office visit. He has a past medical history of nephrolithiasis, polyarticular osteoarthritis, depression, hyperparathyroidism, anxiety, chronic kidney disease, transaminitis, obesity, obstructive sleep apnea, and arthritis. He presents to the office today for follow-up of his lower urinary tract symptoms and nephrolithiasis. In discussion with the patient today he reports urologically he has been doing and feeling well. He denies having had any bothersome urinary issues or concerns since his last office visit here. He does however discuss his recent right knee replacement at [facility] 6 months ago and has been recovering well. He reports compliance with oxybutynin and Flomax as prescribed. In office urinalysis results reviewed with the patient today. PVR 29 mL. Recent renal ultrasound results reviewed with the patient today. 06/22 bilateral kidneys are normal in parenchymal echotexture and thickness. There are no renal masses noted bilaterally. Right nonobstructing calculus in the interpolar region measuring 15 x 11 x 10 mm. Left kidney with nonobstructing 3 x 2 x 6 mm calculus in the lower pole. There is no hydronephrosis noted bilaterally. When asked he denies incontinence, nocturia, hematuria, dysuria, foul smelling urine, changes to urinary stream, flank pain, fever, and or chills. He is happy with his current voiding parameters. We discussed further intervention regarding nephrolithiasis and risks and benefits of these interventions. All questions were answered. He reports to be drinking plenty of water daily and adding 1 oz of lemon juice to water daily. He otherwise offers no other issues or concerns at this time. PSA: 03/22 0.9 PREVIOUS OFFICE NOTE: Nephrolithiasis Has had elevated PTH secondary to hyperparathyroidism. Has been under management for this Imaging 12/18 bilateral small renal stones Laboratories - 01/18 Ca 9.4, normal vitamin-D, normal PTH, Cr 1.0 - 24 Hr 12/19 good volume, low calcium, low oxalate, good citrate PFSH Medical History Polyarticular osteoarthritis Mild major depression TACHO (acute kidney injury) Sepsis Hyperparathyroidism Total bilirubin, elevated LOR (generalized anxiety disorder) CKD (chronic kidney disease) Transaminitis Obese Anxiety associated with depression Impaired glucose tolerance ANA on CPAP Knee osteoarthritis Hypovitaminosis D Surgical History Hx of right knee surgery Hx of colonoscopy Family History Father Cancer Stroke Cirrhosis Mother Diabetes Dementia Social History Household Members: Spouse Housing: House Alcohol intake: never Patient Tobacco Use Status: Never used Tobacco e-Cigarette/Vaping Use: Never Used Second Hand Smoke Exposure: No service: No Current occupational status: disabled Cognitive needs: Yes Hearing needs: No Vision needs: Yes Review of Systems Const All systems reviewed & are unremarkable except as noted in HPI and below Physical Exam Const General: cooperative, healthy appearing, comfortable, no acute distress, well developed, alert and awake Nutritional Appearance: overweight Orientation/consciousness: patient oriented x3 Limitations: ambulation with cane HEENT Head: Yes normal to inspection and Yes No palpable skull fracture present Eyes General: appearance normal, both eyes and all related structures Neck Neck: Yes normal visual inspection Chest Chest palpation & inspection: normal inspection of the chest Resp Effort & Inspection: normal respiratory effort and able to speak in complete sentences Cardio Rate: regular rate GI Inspection: Yes normal to inspection General: Yes no CVA tenderness Back/Spine/Pelvis Back: no CVA tenderness Skin General skin exam: no rashes or lesions noted Neuro General: patient oriented x3 Extrem General: Yes normal to inspection Psych Appearance: grossly normal Mental Status: mental status grossly normal Speech and movement: Normal speech and movement present Affect: normal affect Attitude: cooperative Thought process: Normal thought process present Thought content: Normal thought content present Insight: Fair insight present (Psych) Judgement: Fair judgement present (Psych) Office Procedures Post Void Residual Post Residual Void Post Void Residual (PVR): 29 51869-Uboc Void Residual by ultrasound Results AMB Urinalysis, Automated UA Leukoctes 0 Luis/uL Last Edit by RAO Kam on 06/13/25 16:25 UA Nitrite Negative Last Edit by RAO Kam on 06/13/25 16:25 UA Urobilinogen 0.2 mg/dL Last Edit by RAO Kam on 06/13/25 16:2 5 UA Protein 0 mg/dL Last Edit by RAO Kam on 06/13/25 16:25 UA pH 6.0 Last Edit by RAO Kam on 06/13/25 16:25 UA Blood 10 Guido/uL Last Edit by RAO Kam on 06/13/25 16:25 UA Specific [place] 1.010 Last Edit by RAO Kam on 06/13/25 16: 25 UA Ketone Negative Last Edit by RAO Kam on 06/13/25 16:25 UA Bilirubin 0 mg/dL Last Edit by RAO Kam on 06/13/25 16:25 UA Glucose 0 mg/dL Last Edit by RAO Kam on 06/13/25 16:25 Results Reviewed Results Reviewed: Laboratory Last Values Urine pH (Auto) 6.0 06/13/25 16:24 Specific [place] (Auto) 1.010 06/13/25 16:24 Urine Protein (Auto) 0 mg/dL 06/13/25 16:24 Glucose (UA)(Auto) 0 mg/dL 06/13/25 16:24 Urine Ketones (Auto) Negative 06/13/25 16:24 Urine Blood (Auto) 10 Guido/uL 06/13/25 16:24 Urine Nitrite (Auto) Negative 06/13/25 16:24 Urine Bilirubin (Auto) 0 mg/dL 06/13/25 16:24 Urine Urobilinogen (Auto) 0.2 mg/dL 06/13/25 16:24 Leukocyte Esterase (Auto) 0 Luis/uL 06/13/25 16:24 Date of Service: 06/04/25 Procedure(s): US renal BI FINDINGS: Right kidney: The right kidney measures 11.8 x 4.8 x 7.0 cm. Renal parenchymal echotexture and thickness are normal. There are no masses. There is a nonobstructing calculus in the interpolar region measuring 15 x 11 x 10 mm. There is no hydronephrosis. Left Kidney: The left kidney measures 12.3 x 4.7 x 4.9 cm. Renal parenchymal echotexture and thickness are normal. There is a 12 x 11 x 10 mm upper pole cyst and an 8 x 7 x 9 mm lower pole cyst. There is a nonobstructing calculus at the lower pole measuring 3 x 2 x 6 mm. There is no hydronephrosis. IMPRESSION: Bilateral nephrolithiasis as described. Assessment & Plan Assessment & Plan (1) Renal calculi: Code(s): N20.0 - Calculus of kidney Category: Medical (2) Urinary urgency: Code(s): R39.15 - Urgency of urination Category: Medical (3) Renal cyst: Code(s): N28.1 - Cyst of kidney, acquired Category: Medical Plan In office urinalysis results reviewed with the patient today; as noted above. PVR 29 mL. Continue Flomax and oxybutynin as prescribed. He currently denies any bothersome urinary issues or concerns. He reports be happy with current voiding parameters. Will obtain KUB for further assessment evaluation Recent PSA results reviewed with the patient today; as noted above. Recent renal imaging results reviewed with the patient today; as noted above. We did discussed at length further intervention of nephrolithiasis and risks and benefits of these interventions. All questions were answered. Follow-up with KUB in 1-2 months; or sooner with any issues, concerns, and or questions. Orders: Orders XR KUB Today N20.0 - Calculus of kidney AMB Urinalysis Automated Today Z13.9 - Encounter for screening, unspecified Urine Cytology Today R31.9 - Hematuria, unspecified Patient Instructions: The patient had an opportunity to ask questions regarding the treatment plan. All questions were answered. Physical exam, labs, and imaging were discussed and reviewed in detail. As well as risks, benefits, and discussion of treatment choices. No major barriers to understanding were identified. The patient expressed understanding and agreement with the above treatment plan. The patient was made aware they should contact our office by phone for worsening of their current condition, the appearance of new symptoms, or with any questions or concerns. Compliance is encouraged with any medications and follow up testing that is ordered. It is a privilege to be allowed the opportunity to participate in? your urological care.? Again, if you have any questions or concerns If you have any questions or concerns please do not hesitate to contact me. The office is [phone]. This note is constructed using voice recognition software. While every effort has been made to ensure accuracy front end engineer errors may have been included. Yours sincerely, DARWIN Coleman Coding Level of Care Code Est Pt Level 3 (65877) Complex EM visit Add On G2211 Diagnoses Renal calculi N20.0 Urinary urgency R39.15 Renal cyst N28.1 CPT Codes Post Residual Void - PVR CPT Code: 62192-Qgwx Void Residual by ultrasound ([id number])
--- OUTSIDE RECORDS SUMMARY | 2025-06-13 19:27 | XMS_ITS | Clinical Summary ---
Author Organization [address] [facility] Address [address] [place] [address] Phone Care Team Providers Care System Administration Manager Name Role Phone Sahara Arnett MD Primary Care Provider [phone] Allergies No known active allergies Medications tamsulosin [...] if needed for mild pain. 90 tablet 5 Active ondansetron (ZOFRAN) 8 mg tablet Take 1 tablet (8 mg total) by mouth every 8 (eight) hours if needed for nausea or vomiting. 10 tablet 5 Active senna-docusate (PERICOLACE) 8.6-50 mg per tablet Take 2 tablets by mouth at bedtime. 60 tablet 5 Active celecoxib (CeleBREX) 200 mg capsuleIndicati ons:Status post total right knee replacement,Chela n and swelling of right knee Take 1 capsule (200 mg total) by mouth 2 (two) times a day with meals. 60 each 2 5 Active amoxicillin (AMOXIL) 500 mg capsuleIndicati ons:Status post total right knee replacement Take 4 capsules (2,000 mg total) by mouth 1 (one) time for 1 dose. TAKE 4 CAPSULES 1 HOUR PRIOR TO DENTAL APPOINTMENT 4 each 2 05/30/20 Active Problems Problem Noted Date Diagnosed Date [...] Encounters Date Type Department Care Team Description 05/30/2025 Telephone Orthopedic Surgery [facility] [address] [address] Jordon Jaime MD 04/10/2025 10:00 AM EDT Office Visit Orthopedic Surgery [facility] [address] [address] Jordon Jaime MD Status post total right knee replacement (Primary Dx); Post-operative state; Pain and swelling of right knee from Last 3 Months Surgical History Surgery Date Site/Laterality Comments KNEE ARTHROSCOPY W/ PARTIAL MEDIAL MENISCECTOMY Right Medical History Medical History Date Comments ANA on CPAP Urinary retention OA (osteoarthritis) Social History Tobacco Use Types Packs/Day Years Used Date Smoking Tobacco: Never Smokeless Tobacco: Never Tobacco Cessation:Counseling Given: Not Answered Interpersonal Safety Answer Date Record ed Physical Abuse Unrecognized value 12/17/2024 Verbal Abuse Unrecognized value 12/17/2024 Sex and Gender Information Value Date [...] 10:30 AM EDT Office Visit Orthopedic Surgery - [place] [address] [address] Jordon Jaime MD [address] [address] Health Maintenance Due Date Last Done Comments Colorectal Cancer Screening: Colonoscopy 1960 Zoster Vaccines (1 of 2) 1977 COVID-19 Vaccine (3 - Pfizer risk series) 02/02/2021 01/05/2021, 12/15/2020 Cholesterol Screening (Lipid Panel) 03/21/2024 Hepatitis C Screening 03/21/2024 Medicare Annual [...] this topic Medical Devices Implanted Type Area Breaking Machine Operator Device Identifier Shelf Expiration Date Model / Serial / Lot Cement Bone Surg Simplex Radiopq - Snone - [id number] Implanted:Qty : 2 on 12/17/2024 by Jordon Jaime MD at [facility] Bone Cement Right: Knee [employer] 06/28/2027 6191-1-010 / NONE / [id number] All Poly Patella Ve 38mm - Snone - [id number] Implanted:Qty : 1 on 12/17/2024 by Jordon Jaime MD at [facility] Joints Knee Right: Patella [employer] [id number] 03/08/2029 [id number] / NONE / [id number] Knee Psn Fem Ps Cmt Ccr Std Sz10 R - Snone - [id number] Implanted:Qty : 1 on 12/17/2024 by Jordon Jaime MD at [facility] Joints Knee Right: Knee [employer] [id number] 09/11/2031 [id number] / NONE / [id number] Stem Extension Tapered Cemented 24w67ol - Snone - [id number] Implanted:Qty : 1 on 12/17/2024 by Jordon Jaime MD at [facility] Joints Knee Right: Knee [employer] [id number] 10/28/2034 91-6834-115-1 4 / NONE / [id number] Knee Psn Tib Shop Manager Stm 5 Deg Sz Hr - Snone - [id number] Implanted:Qty : 1 on 12/17/2024 by Jordon Jaime MD at [facility] Joints Knee Right: Knee [employer] [id number] 07/14/2033 [id number] / NONE / [id number] Knee Psn Asf Mlc 12mm Rt 10-12 Gh - Sn/A - [id number] Implanted:Qty : 1 on 12/17/2024 by Jordon Jaime MD at [facility] Joints Knee Right: Knee [employer] [id number] 06/13/2029 [id number] / N/A / [id number] Description:CPS (not MLC) Psn Cm Fm/Cm Tb/Cps/Ve Psn Pt Implanted:Qty : 1 on 12/17/2024 by Jordon Jaime MD at [facility] Right: Knee [employer] [id number] / N/A / N/A Procedures Procedure [...] moderate effusion, reduced from 2-week postoperative x-rays. us Jordon Jaime MD IMG XR PROCEDURES Fin al Result from Last 3 Months Insurance [facility] MEDICARE Member Subscriber Plan / Payer (Ef fective 2024-Present) Name:Eliazar Burgos Relation to Subscriber:Self Name:Eliazar Burgos Payer ID:[id number] Group ID:[id number] Type:Not on file Address: [place] [address] [place] [id number] Advance Directives Documents on File Type Date Recorded Patient Cherry Cutter Expl anation Power of Tire Maintenance Technician 12/12/2024 2:36 PM HEALT H CARE PROXY [...] currently active code status orders. Care Teams System Administration Manager Relationship Specialty Start Date End Date Sahara Arnett MD [address] [facility] D/B/A: [facility] DESHAWN Navarrete PCP - General Internal Medicine 11/13/24
== END 2025-06-13 16:40 | disposition home or self-care (01) ==
LOC: HO.HUSH 15:45
PROVIDERS: PCP Internal Medicine; Visit Provider Nurse Practitioner Family
DX: N20.0 Calculus of kidney (principal); R39.15 Urgency of urination; N28.1 Cyst of kidney, acquired; Z13.9 Encounter for screening, unspecified
CPT/HCPCS: 99213; G2211

== ENCOUNTER 2025-06-13 15:44 | Outpatient (REF) | payer OTHER, SELFPAY ==
--- OUTSIDE RECORDS SUMMARY | 2025-06-13 19:38 | XMS_ITS | Clinical Summary ---
Author Organization [facility] Address [address] [place] [address] Phone Care Team Providers Care Pvc Loader Name Role Phone Sahaar Hodges MD Primary Care Provider [phone] Allergies No known active allergies Medications No [...] age to complete this topic Care Teams Pvc Loader Relationship Specialty Start Date End Date Sahara Hodges MD [address] [place], [place] PCP - General 09/08/20
== END 2025-06-13 15:45 | disposition home or self-care (01) ==
LOC: HO.LAB 15:44
PROVIDERS: PCP Internal Medicine; Visit Provider Nurse Practitioner Family
DX: N28.1 Cyst of kidney, acquired (principal); N20.0 Calculus of kidney; R39.15 Urgency of urination; R31.9 Hematuria, unspecified
CPT/HCPCS: 51798; 81003; 88112; 99212

== ENCOUNTER 2025-07-10 12:55 | Outpatient (REF) | payer OTHER, SELFPAY ==
--- NOTE | ~2025-07-10 | XR_ITS ---
EXAMINATION: XR ABDOMEN KUB CLINICAL INDICATION: N20.0 - Calculus of kidney COMPARISON: Safety Equipment Tester from CT abdomen and pelvis January 10, 2024 TECHNIQUE: AP view of the abdomen. FINDINGS: The region of the kidneys is obscured by bowel gas. There is a nodular density left of the L3 transverse process that likely represents a small stone. Small focal density lateral to the right 12th rib present a small stone or stool. There is gas in both small and large bowel. XR/XR KUB IMPRESSION: Probable stone in the lower pole left kidney. Possible visible stone in the mid to upper right kidney. Kidneys are obscured by overlapping bowel, right greater than left. There is a nonspecific bowel gas pattern. Electronically signed by: Riccardo Jaime MD 07/10/2025 01:44 PM PRAMOD
--- OUTSIDE RECORDS SUMMARY | 2025-07-10 15:30 | XMS_ITS | Clinical Summary ---
Author Organization 175 [facility] Address [address] [place] [address] Phone Care Team Providers Care Material Planning Analyst Name Role Phone Sahara Arnett MD Primary Care Provider [phone] Allergies No known active allergies Medications tamsulosin [...] with meals. 60 each 2 5 Active Active Problems Problem Noted Date Diagnosed [...] Care Team Description 05/30/2025 Telephone Orthopedic Surgery [place] [address] [address] Jordon Jaime MD 04/10/2025 10:00 AM EDT Office Visit Orthopedic Surgery [facility] [address] [address] Jordon Jaime MD Status post total right [...] AM EDT Office Visit Orthopedic Surgery - [place] [address] 175 [facility] [address] [place] [phone] Jordon Jaime MD [address] [address] Health Maintenance Due Date Last Done Comments [...] this topic Medical Devices Implanted Type Area Rolling Mill Operator Device Identifier Shelf Expiration Date Model / Serial / Lot Cement Bone Surg Simplex Radiopq - Snone - [id number] Implanted:Qty : 2 on 12/17/2024 by Jordon Jaime MD at [facility] Bone Cement Right: Knee [employer] 06/28/2027 6191-1-010 / NONE / [id number] All Poly Patella Ve 38mm - Snone - [id number] Implanted:Qty : 1 on 12/17/2024 by Jordon Jaime MD at [facility] Joints Knee Right: Patella [employer] [id number] 03/08/2029 [id number] / NONE / [id number] Knee Psn Fem Ps Cmt Ccr Std Sz10 R - Snone - [id number] Implanted:Qty : 1 on 12/17/2024 by Jordon Jaime MD at [facility] Joints Knee Right: Knee [employer] [id number] 09/11/2031 [id number] / NONE / [id number] Stem Extension Tapered Cemented 78b49gm - Snone - [id number] Implanted:Qty : 1 on 12/17/2024 by Jordon Jaime MD at [facility] Joints Knee Right: Knee [employer] [id number] 10/28/2034 50-1550-082-1 4 / NONE / [id number] Knee Psn Tib Campus Recruiter Stm 5 Deg Sz Hr - Snone - [id number] Implanted:Qty : 1 on 12/17/2024 by Jordon Jaime MD at [facility] Joints Knee Right: Knee [employer] [id number] 07/14/2033 [id number] / NONE / [id number] Knee Psn Asf Mlc 12mm Rt 06-09 - Sn/A - [id number] Implanted:Qty : 1 on 12/17/2024 by Jordon Jaime MD at [facility] Joints Knee Right: Knee [employer] [id number] 06/13/2029 [id number] / N/A / [id number] Description:CPS (not MLC) Psn Cm Fm/Cm Tb/Cps/Ve Psn Pt Implanted:Qty : 1 on 12/17/2024 by Jordon Jaime MD at [facility] Right: Knee [employer] [id number] / N/A / N/A Procedures Procedure [...] al Result from Last 3 Months Insurance [facility] MEDICARE Member Subscriber Plan / Payer (Ef fective 2024-Present) Name:Eliazar Burgos Relation to Subscriber:Self Name:Eliazar Burgos Payer ID:[id number] Group ID:[id number] Type:Not on file Address: [place] [address] [place] [id number] Advance Directives Documents on File Type Date Recorded Patient Senior Software Engineer Expl anation Power of Laborer Concrete Plant 12/12/2024 2:36 PM HEALT H CARE PROXY [...] currently active code status orders. Care Teams Material Planning Analyst Relationship Specialty Start Date End Date Sahara Arnett MD [address] [place] [address] , [address] [facility] D/B/A: [facility] DESHAWN Navarrete PCP - General Internal Medicine 11/13/24
--- OUTSIDE RECORDS SUMMARY | 2025-07-10 15:30 | XMS_ITS | Clinical Summary ---
Author Organization [facility] Address [address] [place] [address] Phone Care Team Providers Care Biological Inspector Name Role Phone Sahara Hodges MD Primary Care Provider [phone] Allergies No known active allergies Medications No [...] age to complete this topic Care Teams Biological Inspector Relationship Specialty Start Date End Date Sahara Hodges MD [address] [place], [place] PCP - General 09/08/20
== END 2025-07-10 12:56 | disposition home or self-care (01) ==
LOC: HO.XRAY 12:55
PROVIDERS: PCP Internal Medicine; Visit Provider Nurse Practitioner Family
DX: N20.0 Calculus of kidney (principal)
CPT/HCPCS: 74018

== ENCOUNTER → 2025-07-10 12:58 | Outpatient (BNV) | payer OTHER, SELFPAY | PROVIDERS: PCP Internal Medicine; Visit Provider Radiology Diagnostic Radiology | DX: N20.0 Calculus of kidney (principal) | CPT/HCPCS: 74018 ==

== ENCOUNTER 2025-07-24 06:22 | Outpatient (REF) | payer OTHER, SELFPAY ==
--- OUTSIDE RECORDS SUMMARY | 2025-07-24 06:26 | XMS_ITS | Clinical Summary ---
Author Organization [facility] Address [address] [place] [address] Phone Care Team Providers Care Radio Aerial Installer Name Role Phone Sahara Hodges MD Primary Care Provider [phone] Allergies No known active allergies Medications No [...] age to complete this topic Care Teams Radio Aerial Installer Relationship Specialty Start Date End Date Sahara Hodges MD [address] [place], [place] PCP - General 09/08/20
--- OUTSIDE RECORDS SUMMARY | 2025-07-24 06:26 | XMS_ITS | Clinical Summary ---
Author Organization 175 [facility] Address [address] [place] [address] Phone Care Team Providers Care Criminal Intelligence Analyst Name Role Phone Sahara Arnett MD Primary Care Provider [phone] Allergies No known active allergies Medications tamsulosin [...] Date Type Department Care Team Description 05/30/2025 [facility] - [address] [address] Jordon Jaime MD from Last 3 Months Surgical History Surgery [...] AM EDT Office Visit Orthopedic Surgery - [place] [address] [facility] [address] [place] [address] Jordon Jaime MD 175 [facility] [address] [place] [address] Health Maintenance Due Date Last Done Comments [...] this topic Medical Devices Implanted Type Area Commodity Loan Clerk Device Identifier Shelf Expiration Date Model / Serial / Lot Cement Bone Surg Simplex Radiopq - Snone - [id number] Implanted:Qty : 2 on 12/17/2024 by Jordon Jaime MD at [facility] Bone Cement Right: Knee [employer] 06/28/2027 6191-1-010 / NONE / [id number] All Poly Patella Ve 38mm - Snone - [id number] Implanted:Qty : 1 on 12/17/2024 by Jordon Jaime MD at [facility] Joints Knee Right: Patella [employer] [id number] 03/08/2029 [id number] / NONE / [id number] Knee Psn Fem Ps Cmt Ccr Std Sz10 R - Snone - [id number] Implanted:Qty : 1 on 12/17/2024 by Jordon Jaime MD at [facility] Joints Knee Right: Knee [employer] [id number] 09/11/2031 [id number] / NONE / [id number] Stem Extension Tapered Cemented 86u56mq - Snone - [id number] Implanted:Qty : 1 on 12/17/2024 by Jordon Jaime MD at [facility] Joints Knee Right: Knee [employer] [id number] 10/28/2034 87-8891-284-1 4 / NONE / [id number] Knee Psn Tib Emergency Medicine Nurse Practitioner Stm 5 Deg Sz Hr - Snone - [id number] Implanted:Qty : 1 on 12/17/2024 by Jordon Jaime MD at [facility] Joints Knee Right: Knee [employer] [id number] 07/14/2033 [id number] / NONE / [id number] Knee Psn Asf Mlc 12mm Rt 10-12 Gh - Sn/A - [id number] Implanted:Qty : 1 on 12/17/2024 by Jordon Jaime MD at [facility] Joints Knee Right: Knee [employer] [id number] 06/13/2029 [id number] / N/A / [id number] Description:CPS (not MLC) Psn Cm Fm/Cm Tb/Cps/Ve Psn Pt Implanted:Qty : 1 on 12/17/2024 by Jordon Jaime MD at [facility] Right: Knee [employer] [id number] 1 / N/A / N/A Insurance [facility] MEDICARE Member Subscriber Plan / Payer (Ef fective 2024-Present) Name:Eliazar Burgos Relation to Subscriber:Self Name:Eliazar Burgos Payer ID:[id number] Group ID:[id number] Type:Not on file Address: [place] [address] [address] [phone] Advance Directives Documents on File Type Date Recorded Patient Battery Technician Expl anation Power of Actuarial Analyst 12/12/2024 2:36 PM [facility] PROXY [...] currently active code status orders. Care Teams Criminal Intelligence Analyst Relationship Specialty Start Date End Date Sahara Arnett MD [address] [place] [address] Dr[address] [facility] D/B/A: Landon Dockeryat[facility] DESHAWN Navarrete PCP - General Internal Medicine 11/13/24
[2025-07-24 07:41] LABS: Appearance Urine Clear; Glucose Urine UA Negative (Negative); PH 6.0 (5.0-9.0); Specific Gravity - Urine 1.015 (1.005-1.025); UMIC TRIGGER UACC YES
[2025-07-24 07:59] LABS: UACC Culture Trigger YES
== END 2025-07-24 06:23 | disposition home or self-care (01) ==
LOC: HO.LAB 06:22
PROVIDERS: PCP Internal Medicine; Visit Provider Nurse Practitioner Family
DX: R10.A0 Flank pain, unspecified side (principal)
CPT/HCPCS: 81001; 87086